=== PATIENT | male | born 1965 | race Caucasian/White ===

== ENCOUNTER → 2018-07-03 13:26 | Outpatient (CLI) | payer SELFPAY ==
[2018-07-03 14:48] LABS: Add Manual Diff / Slide Review NO; Basophils Percent Auto 1.5 % (0-2); Eosinophils Percent Auto 8.8 % (2-4); Hematocrit 41.6 % (41-53); Lymphocytes Percent Auto 33.4 % (25-40); Mean Corpuscular HGB Conc 33.7 % (30-36); Mean Corpuscular Hemoglobin 30.4 PG (26-34); Mean Corpuscular Volume 90.2 fL (80-100); Monocytes Percent Auto 7.4 % (3-14); Neutrophils Absolute Auto 3300 /uL (3000-5900); Neutrophils Percent Auto 48.9 % (50-75); Platelet Count 382 X10^3/uL (150-400); Red Blood Cell Count 4.61 X10^6/uL (4.5-5.9); Red Cell Distribution Width 13.6 % (11.6-14.8); White Blood Cell Count 6.8 X10^3/uL (4.5-11.0)
[2018-07-03 15:21] LABS: Alanine Aminotransferase 38 IU/L (21-72); Albumin 4.6 g/dL (3.5-5.0); Albumin Globulin Ratio 1.6 (1.0-2.8); Alkaline Phosphatase 53 U/L (38-126); Aspartate Aminotransferase 25 IU/L (17-59); BUN Creatinine Ratio 16.7 (6-22); Bilirubin Total 0.6 mg/dL (0.2-1.3); Blood Urea Nitrogen 15 mg/dL (9-20); Calcium 9.1 mg/dL (8.4-10.2); Carbon Dioxide 32 mmol/L (22-32); Chloride 100 mmol/L (98-107); Cholesterol 250 mg/dL (140-199); Estimated Glomerular Filt Rate > 60.0 mL/min (>60); Globulin 2.9 g/dL (1.7-4.1); Glucose 87 mg/dL (70-100); HDL Cholesterol 50 mg/dL (40-60); HEMOLYSIS < 15 (0-50); LDL Cholesterol Calculated 160 mg/dL (<100); Potassium 4.4 mmol/L (3.4-5.1); Sodium 142 mmol/L (137-145); Total Protein 7.5 g/dL (6.3-8.2); Triglycerides 198 mg/dL (35-150)
[2018-07-03 15:49] LABS: Prostate Specific Antigen Scrn 0.779 ng/mL (0.1-4.0)
== END ==
PROVIDERS: PCP Family Medicine; Visit Provider Family Medicine
DX: F98.8 Other specified behavioral and emotional disorders with onset usually occurring in childhood and adolescence (principal); J44.9 Chronic obstructive pulmonary disease, unspecified; Z00.01 Encounter for general adult medical examination with abnormal findings
CPT/HCPCS: 36415; 80053; 80061; 84443; 85025; G0103

== ENCOUNTER → 2018-12-04 15:12 | Outpatient (CLI) | payer OTHER, MEDICAID, SELFPAY ==
--- NOTE | 2018-12-04 15:14 | DI.US.S_ITS ---
PROCEDURE: US SCROTUM INDICATIONS: HYDROCELE TECHNIQUE: Real-time scanning was performed of the scrotum and testicles, with image documentation. Color and pulse Doppler interrogation was performed of both testicles. COMPARISON: None. FINDINGS: Right: Testicle is normal in size at 5.6 x 4.4 x 2.6 cm, and homogenous in echotexture. Epididymis is normal in overall size and morphology. There is a large cystic mass with internal septation between the right epididymis and testes measuring 4.4 x 4.1 x 3.3 cm, which demonstrates internal echo, this correlates with the palpable abnormalities. On Doppler ultrasound, there is flow signal within the septation. No varicoceles. Overlying scrotal skin is normal in thickness. Left: Testicle is normal in size at 5.5 x 3.8 x 2.3 cm, and homogeneous in echotexture. There is a 1.7 x 0.7 x 1.3 cm cyst in the epididymal head. Epididymis is normal in overall size and morphology. No hydrocele or varicoceles. Overlying scrotal skin is normal in thickness. Doppler: Color and pulse Doppler demonstrate normal and symmetric arterial flow in both testicles. IMPRESSION: 1. A 4.4 x 4.1 x 2.3 cm complex cystic mass in the right scrotum between the epididymis and testes. Differential diagnosis includes sequelae of trauma (hematocele), infection (pyocele) or complex hydrocele. Recommend clinical question followup. 2. Normal testes bilaterally. 3. A small epididymal cyst or spermatocele in the head of the left epididymis. Dictated by: Kaylyn Davis M.D. on 12/04/2018 at 16:46 Approved by: Kaylyn Davis M.D. on 12/04/2018 at 17:16
== END ==
PROVIDERS: Family Provider Family Medicine; PCP Family Medicine; Visit Provider Urology
DX: N50.3 Cyst of epididymis (principal); N43.3 Hydrocele, unspecified
CPT/HCPCS: 76870

== ENCOUNTER 2019-06-22 10:30 | Outpatient (RCR) | payer OTHER, MEDICAID, SELFPAY ==
--- NOTE | 2019-05-25 11:00 | PT.OPPOC ---
Current Diagnoses Pain in right shoulder (05/25/19) Pain in left shoulder (05/25/19) Visit Care Team Role Provider Type Aleksandar Medina MD Attending Provider Physician Primary Care Provider Specialty: Family Practice Address: [address] [place] [address], [id number] Email: [email or web address] Plan Of Care PT-OP-T Assessment and Plan Start: 05/25/19 08:06 Freq: Status: Active Protocol: Document 05/25/19 10:27 [facility] (Rec: 05/25/19 13:40 [facility] [id number]) Physical Therapy Assessment Rehab Potential Rehabilitation Potential Good Evaluation Complexity Number of Personal Factors/Comorbidities 1-2 Number of Body Systems Impaired 3 Clinical Presentation at Evaluation Evolving Impairments Impairments Activity Tolerance,Pain, Posture,Strength Goals Four Impairment activity tolerance (Quickdash score 41) Short Term Goal (STG) Quickdash UE disability score decrease to no greater than 25 % STG Duration 4 wks Skilled Nursing Goal (LTG) Decrease Quickdash score to no greater than 15% Three Impairment strength Short Term Goal (STG) Instruct patient in HEP for shoulder strengthening and stabilization STG Duration 4 wks Skilled Nursing Goal (LTG) Patient to demonstrate at least 4+/5 strength throughout bilateral shoulders LTG Duration 8 wks Two Impairment posture Short Term Goal (STG) Instruct patient in neutral postural alignment and importance for optimal shoulder function STG Duration 2 wks Taker Down Goal (LTG) Patient to demonstrate improvement in postural alignment at rest and with functional activities LTG Duration 8 wks One Impairment pain jb shoulders right (6/10 ) greater than left (3/10) Skilled Nursing Goal (LTG) Decrease pain to no greater than 2/10 jb LTG Duration 8 wks Physical Therapy Plan Frequency and Duration Frequency of Treatment 2x/Week Duration of Treatment 8 wks Plan of Care Start Date 05/25/19 Plan of Care End Date 07/24/19 Therapeutic Interventions Therapeutic Interventions Aquatic Therapy,Home Exercise Program,Joint Mobilizations, Manual Therapy,Neuromuscular Re-education,Patient/Caregiver Education,Self-Care/Home Management,Soft Tissue Mobilization,Taping, Therapeutic Activities, Therapeutic Exercises Modalities Cold Pack/Ice Massage,Electric Stimulation,Hot Packs, Iontophoresis,Ultrasound Next Visit Focus/Plan Next Note Type Treatment Note Next Visit Plan Review HEP, postural principles, progression of exercise program for shoulder strengthening and stabilization. Modalities and manual therapy as indicated. Plan of Care Dates Plan of Care Start Date 05/25/19 Plan of Care End Date 07/24/19 Please Sign and Return: I have reviewed this Plan of Care and certify that the skilled therapy services above are required to meet the patient?s needs. Physician Signature Date Printed Name and Credentials Clinical Instructor Signature Printed Name and Credentials
--- NOTE | 2019-05-25 11:00 | PT.OIE ---
Current Diagnoses Pain in right shoulder (05/25/19) Pain in left shoulder (05/25/19) Past Medical History (Last Updated 08/11/18 @ 11:30 by Yaima Bragg) Abnormal CXR (Chronic) ADHD (Chronic) Asthma (Chronic) Chronic back pain (Chronic) COPD (chronic obstructive pulmonary disease) (Chronic) Hemorrhoid (Chronic) Kidney stones (Resolved) Shoulder pain (Chronic) Past Surgical History (Last Updated 08/11/18 @ 11:30 by Yaima Bragg) Anesthesia (Resolved) History of lithotripsy (~2013) Visit Care Team Role Provider Type Aleksandar Medina MD Attending Provider Physician Primary Care Provider Specialty: [facility] Address: [address] [place] [address] Email: [email or web address] Physical Therapy Initial Evaluation PT-OP-A Visit Information Start: 05/25/19 08:06 Freq: Status: Active Protocol: Document 05/25/19 10:27 [facility] (Rec: 05/25/19 10:55 [facility] [id number]) Out-Patient Physical Therapy Visit Information Visit Information Visit Type Initial Evaluation Visit Start Time 10:30 Visit Stop Time 11:25 Total Visit Minutes 55 Visit Number 1 Number of CYBER INSTRUCTOR Visits 0 PT-OP-B Current Condition Start: 05/25/19 08:06 Freq: Status: Active Protocol: Document 05/25/19 10:27 [facility]AK (Rec: 05/25/19 10:55 [facility] [id number]) Current Condition History of Current Condition Onset Date 2 years Current Complaints bilateral shoulder pain History of Current Condition No known accident or trauma. Pain reduced to managable after PT 1yr ago. Shortly after states he doesn't know what he did but pain got worse again. Left shoulder only feels with certain movements, unable to much at all with right UE. Worst movements lifting overhead, out to side. Doing standing ROM ex as previously instructed, not doing band or prone exercises. Takes walks for exercise. Prior Treatments and Tests x-ray: inflammation and arthritis. Treatment Goals Patient/Caregiver Goals Minimize pain, able to resume all usual activities. Prior Functional Status Baseline Function- ADL's Independent Baseline Function- Mobility Independent Baseline Function- Recreation/Hobbies No limitations Current Functional Impairments (Reported) Functional Limitations- ADL's painful Functional Limitations- Recreation/ painful Hobbies PT-OP-C Subjective Start: 05/25/19 08:06 Freq: Status: Active Protocol: Document 05/25/19 10:27 [facility] (Rec: 05/25/19 13:40 [facility] [id number]) Patient Questionnaires Quick Dash- Upper Extremity Quick Dash UE Score 40 Quick Dash UE Impairment 40 to 59% Impaired (Score 40- 59) OP-PT Pain Assessment Pain Assessment Grid Paper Pain Assessment Grid Completed Yes Location Right Shoulder Intensity 6 Description Shooting,With Movement Pain Aggravating Factors Position,ADL's,Activity, Exercise Pain Alleviating Factors Inactivity,Rest Left Shoulder Intensity 3 Description Aching,With Movement Pain Aggravating Factors Changing Position,Lifting Pain Alleviating Factors Inactivity,Rest Home Pain Medication Use Pain Medications Used No PT-OP-E Functional Tests Start: 05/25/19 08:06 Freq: Status: Active Protocol: Document 05/25/19 10:27 [facility] (Rec: 05/25/19 13:40 [facility] [id number]) Functional Tests Apley's Scratch Test Action 1- Left posterior shoulder Action 1- Right anterior shoulder Action 2- Left T2 Action 2- Right lateral neck Action 3- Left T10 Action 3- Right L4 PT-OP-J Posture/Palpation/Skin Start: 05/25/19 08:06 Freq: Status: Active Protocol: Document 05/25/19 10:27 [facility] (Rec: 05/25/19 13:40 [facility] [id number]) Posture Evaluation Position Sitting Head/C-Spine Posture Forward Head T-Spine Posture Increased Kyphosis L-Spine Posture Increased Lordosis Scapula Posture (L) Protracted,(R) Protracted, (R) Retracted Arm Posture (R) Internally Rotated Palpation Assessment Location RC insertion Palpation Location right and left Palpation Findings Tenderness PT-OP-K Range of Motion Start: 05/25/19 08:06 Freq: Status: Active Protocol: Document 05/25/19 10:27 [facility] (Rec: 05/25/19 10:55 [facility] [id number]) Cervical Spine Range of Motion Cervical Spine Active Testing Position Sitting Comments WNL Shoulder Goniometric Range of Motion Shoulder Left Flexion 175 Extension 35 Abduction 175 External Rotation at 45 degrees 90 Abduction Internal Rotation Behind Back (text) T10 Right Testing Position Supine Flexion 175 Extension 20 Abduction 170 External Rotation at 45 degrees 80 Abduction Internal Rotation Behind Back (text) L3 Shoulder ROM Limitations Shoulder ROM Limitations Muscle Weakness,Pain PT-OP-L Special Tests Start: 05/25/19 08:06 Freq: Status: Active Protocol: Document 05/25/19 10:27 [facility] (Rec: 05/25/19 13:40 [facility] [id number]) Special Tests Shoulder Special Tests Belly Press Test Results positive pain right, neg left Galarza Amandeep Impingement Test Results positive right, neg left Drop Arm Rotator Cuff Test Results negative jb PT-OP-M Strength Start: 05/25/19 08:06 Freq: Status: Active Protocol: Document 05/25/19 10:27 [facility] (Rec: 05/25/19 13:40 [facility] [id number]) Shoulder Strength Shoulder Manual Muscle Testing Right Flexion 4- Good- Extension 4- Good- Abduction (C5) 4- Good- External Rotation 4- Good- Internal Rotation 4 Good Left Flexion 4+ Good+ Extension 4+ Good+ Abduction (C5) 4+ Good+ Adduction 4+ Good+ Internal Rotation 4+ Good+ Elbow/Forearm Strength Elbow and Forearm Manual Muscle Testing jb Flexion (C6) 5 Normal Extension (C7) 5 Normal PT-OP-Q Treatments Start: 05/25/19 08:06 Freq: Status: Active Protocol: Document 05/25/19 10:27 [facility] (Rec: 05/25/19 13:40 [facility] [id number]) Self-Care/Home Management Treatment Education Patient Education Home Exercise Program,Posture Other Education issued written HEP including wall posture, row and shoulder ext with L1 TB, doorway pec stretch Activities Self-Care/Home Management Activities heat in am, ice after activity PT-OP-R Modalities Start: 05/25/19 08:06 Freq: Status: Active Protocol: Document 05/25/19 10:27 [facility] (Rec: 05/25/19 13:40 [facility] [id number]) Hot Pack/Cold Pack Treatment Cold Pack Location jb shoulders Patient Position Hooklying Treatment Duration (minutes) 10 Patient Tolerance Good PT-OP-T Assessment and Plan Start: 05/25/19 08:06 Freq: Status: Active Protocol: Document 05/25/19 10:27 [facility] (Rec: 05/25/19 13:40 [facility] [id number]) Physical Therapy Assessment Rehab Potential Rehabilitation Potential Good Evaluation Complexity Number of Personal Factors/Comorbidities 1-2 Number of Body Systems Impaired 3 Clinical Presentation at Evaluation Evolving Impairments Impairments Activity Tolerance,Pain, Posture,Strength Goals Four Impairment activity tolerance (Quickdash score 41) Short Term Goal (STG) Quickdash UE disability score decrease to no greater than 25 % STG Duration 4 wks Alf Goal (LTG) Decrease Quickdash score to no greater than 15% Three Impairment strength Short Term Goal (STG) Instruct patient in HEP for shoulder strengthening and stabilization STG Duration 4 wks Alf Goal (LTG) Patient to demonstrate at least 4+/5 strength throughout bilateral shoulders LTG Duration 8 wks Two Impairment posture Short Term Goal (STG) Instruct patient in neutral postural alignment and importance for optimal shoulder function STG Duration 2 wks Alf Goal (LTG) Patient to demonstrate improvement in postural alignment at rest and with functional activities LTG Duration 8 wks One Impairment pain jb shoulders right (6/10 ) greater than left (3/10) Alf Goal (LTG) Decrease pain to no greater than 2/10 jb LTG Duration 8 wks Physical Therapy Plan Frequency and Duration Frequency of Treatment 2x/Week Duration of Treatment 8 wks Plan of Care Start Date 05/25/19 Plan of Care End Date 07/24/19 Therapeutic Interventions Therapeutic Interventions Aquatic Therapy,Home Exercise Program,Joint Mobilizations, Manual Therapy,Neuromuscular Re-education,Patient/Caregiver Education,Self-Care/Home Management,Soft Tissue Mobilization,Taping, Therapeutic Activities, Therapeutic Exercises Modalities Cold Pack/Ice Massage,Electric Stimulation,Hot Packs, Iontophoresis,Ultrasound Next Visit Focus/Plan Next Note Type Treatment Note Next Visit Plan Review HEP, postural principles, progression of exercise program for shoulder strengthening and stabilization. Modalities and manual therapy as indicated.
--- NOTE | 2019-05-27 08:16 | PT.OPPOC ---
Current Diagnoses Pain in right shoulder (05/25/19) Pain in left shoulder (05/25/19) Visit Care Team Role Provider Type Aleksandar Medina MD Attending Provider Physician Primary Care Provider Specialty: Family Practice Address: [address] [place] [address], [id number] Email: [email or web address] Plan Of Care PT-OP-T Assessment and Plan Start: 05/25/19 08:06 Freq: Status: Active Protocol: Document 05/25/19 10:27 [facility] (Rec: 05/25/19 13:40 [facility] [id number]) Physical Therapy Assessment Rehab Potential Rehabilitation Potential Good Evaluation Complexity Number of Personal Factors/Comorbidities 1-2 Number of Body Systems Impaired 3 Clinical Presentation at Evaluation Evolving Impairments Impairments Activity Tolerance,Pain, Posture,Strength Goals Four Impairment activity tolerance (Quickdash score 41) Short Term Goal (STG) Quickdash UE disability score decrease to no greater than 25 % STG Duration 4 wks Nursing Home Goal (LTG) Decrease Quickdash score to no greater than 15% Three Impairment strength Short Term Goal (STG) Instruct patient in HEP for shoulder strengthening and stabilization STG Duration 4 wks Nursing Home Goal (LTG) Patient to demonstrate at least 4+/5 strength throughout bilateral shoulders LTG Duration 8 wks Two Impairment posture Short Term Goal (STG) Instruct patient in neutral postural alignment and importance for optimal shoulder function STG Duration 2 wks Instrumental Music Teacher Goal (LTG) Patient to demonstrate improvement in postural alignment at rest and with functional activities LTG Duration 8 wks One Impairment pain jb shoulders right (6/10 ) greater than left (3/10) Nursing Home Goal (LTG) Decrease pain to no greater than 2/10 jb LTG Duration 8 wks Physical Therapy Plan Frequency and Duration Frequency of Treatment 2x/Week Duration of Treatment 8 wks Plan of Care Start Date 05/25/19 Plan of Care End Date 07/24/19 Therapeutic Interventions Therapeutic Interventions Aquatic Therapy,Home Exercise Program,Joint Mobilizations, Manual Therapy,Neuromuscular Re-education,Patient/Caregiver Education,Self-Care/Home Management,Soft Tissue Mobilization,Taping, Therapeutic Activities, Therapeutic Exercises Modalities Cold Pack/Ice Massage,Electric Stimulation,Hot Packs, Iontophoresis,Ultrasound Next Visit Focus/Plan Next Note Type Treatment Note Next Visit Plan Review HEP, postural principles, progression of exercise program for shoulder strengthening and stabilization. Modalities and manual therapy as indicated. Plan of Care Dates Plan of Care Start Date 05/25/19 Plan of Care End Date 07/24/19 Please Sign and Return: I have reviewed this Plan of Care and certify that the skilled therapy services above are required to meet the patient?s needs. Physician Signature Date Printed Name and Credentials Clinical Instructor Signature Printed Name and Credentials
--- NOTE | 2019-05-27 13:31 | PT.OTN ---
Current Diagnoses Pain in right shoulder (05/27/19) Pain in left shoulder (05/27/19) Physical Therapy Treatment Note PT-OP-A Visit Information Start: 05/25/19 08:06 Freq: Status: Active Protocol: Document 05/27/19 10:34 [facility] (Rec: 05/27/19 11:16 [facility] [id number]) Out-Patient Physical Therapy Visit Information Visit Information Visit Type Treatment Note Visit Start Time 10:35 Visit Stop Time 10:36 Total Visit Minutes 56 Visit Number 2 Number of [place] FLORIST Visits 0 PT-OP-B Current Condition Start: 05/25/19 08:06 Freq: Status: Active Protocol: Document 05/25/19 10:27 [facility] (Rec: 05/25/19 10:55 [facility] [id number]) Current Condition History of Current Condition Onset Date 2 years Current Complaints bilateral shoulder pain History of Current Condition No known accident or trauma. Pain reduced to managable after PT 1yr ago. Shortly after states he doesn't know what he did but pain got worse again. Left shoulder only feels with certain movements, unable to much at all with right UE. Worst movements lifting overhead, out to side. Doing standing ROM ex as previously instructed, not doing band or prone exercises. Takes walks for exercise. Prior Treatments and Tests x-ray: inflammation and arthritis. Treatment Goals Patient/Caregiver Goals Minimize pain, able to resume all usual activities. Prior Functional Status Baseline Function- ADL's Independent Baseline Function- Mobility Independent Baseline Function- Recreation/Hobbies No limitations Current Functional Impairments (Reported) Functional Limitations- ADL's painful Functional Limitations- Recreation/ painful Hobbies PT-OP-C Subjective Start: 05/25/19 08:06 Freq: Status: Active Protocol: Document 05/25/19 10:27 [facility] (Rec: 05/25/19 13:40 [facility] [id number]) Patient Questionnaires Quick Dash- Upper Extremity Quick Dash UE Score 40 Quick Dash UE Impairment 40 to 59% Impaired (Score 40- 59) OP-PT Pain Assessment Pain Assessment Grid Paper Pain Assessment Grid Completed Yes Location Right Shoulder Intensity 6 Description Shooting,With Movement Pain Aggravating Factors Position,ADL's,Activity, Exercise Pain Alleviating Factors Inactivity,Rest Left Shoulder Intensity 3 Description Aching,With Movement Pain Aggravating Factors Changing Position,Lifting Pain Alleviating Factors Inactivity,Rest Home Pain Medication Use Pain Medications Used No PT-OP-E Functional Tests Start: 05/25/19 08:06 Freq: Status: Active Protocol: Document 05/25/19 10:27 [facility] (Rec: 05/25/19 13:40 [facility] [id number]) Functional Tests Apley's Scratch Test Action 1- Left posterior shoulder Action 1- Right anterior shoulder Action 2- Left T2 Action 2- Right lateral neck Action 3- Left T10 Action 3- Right L4 PT-OP-J Posture/Palpation/Skin Start: 05/25/19 08:06 Freq: Status: Active Protocol: Document 05/25/19 10:27 [facility] (Rec: 05/25/19 13:40 [facility] [id number]) Posture Evaluation Position Sitting Head/C-Spine Posture Forward Head T-Spine Posture Increased Kyphosis L-Spine Posture Increased Lordosis Scapula Posture (L) Protracted,(R) Protracted, (R) Retracted Arm Posture (R) Internally Rotated Palpation Assessment Location RC insertion Palpation Location right and left Palpation Findings Tenderness PT-OP-K Range of Motion Start: 05/25/19 08:06 Freq: Status: Active Protocol: Document 05/25/19 10:27 [facility] (Rec: 05/25/19 10:55 [facility] [id number]) Cervical Spine Range of Motion Cervical Spine Active Testing Position Sitting Comments WNL Shoulder Goniometric Range of Motion Shoulder Left Flexion 175 Extension 35 Abduction 175 External Rotation at 45 degrees 90 Abduction Internal Rotation Behind Back (text) T10 Right Testing Position Supine Flexion 175 Extension 20 Abduction 170 External Rotation at 45 degrees 80 Abduction Internal Rotation Behind Back (text) L3 Shoulder ROM Limitations Shoulder ROM Limitations Muscle Weakness,Pain PT-OP-L Special Tests Start: 05/25/19 08:06 Freq: Status: Active Protocol: Document 05/25/19 10:27 [facility] (Rec: 05/25/19 13:40 [facility] [id number]) Special Tests Shoulder Special Tests Belly Press Test Results positive pain right, neg left Galarza Amandeep Impingement Test Results positive right, neg left Drop Arm Rotator Cuff Test Results negative jb PT-OP-M Strength Start: 05/25/19 08:06 Freq: Status: Active Protocol: Document 05/25/19 10:27 [facility] (Rec: 05/25/19 13:40 [facility] [id number]) Shoulder Strength Shoulder Manual Muscle Testing Right Flexion 4- Good- Extension 4- Good- Abduction (C5) 4- Good- External Rotation 4- Good- Internal Rotation 4 Good Left Flexion 4+ Good+ Extension 4+ Good+ Abduction (C5) 4+ Good+ Adduction 4+ Good+ Internal Rotation 4+ Good+ Elbow/Forearm Strength Elbow and Forearm Manual Muscle Testing jb Flexion (C6) 5 Normal Extension (C7) 5 Normal PT-OP-Q Treatments Start: 05/25/19 08:06 Freq: Status: Active Protocol: Document 05/27/19 10:34 [facility] (Rec: 05/27/19 11:16 [facility] [id number]) Cardio Equipment Recumbent Stepper (Sci-Fit) Duration (Minutes) 5 Resistance 1 Seat Position 13 Therapeutic Exercises Supine Exercises serratus punch Comments next session horizontal abduction Reps/Minutes 5x Comments endrange stretch x 30 after last repetition shoulder flex Equipment Used wand Reps/Minutes 10x Sidelying Exercises shoulder abduction Reps/Minutes 5x reach and roll Reps/Minutes 5x ea Sitting Exercises pulleys Sitting Exercise Name flex Reps/Minutes 10x Standing Exercises shoulder ER Resistance L2 TB Reps/Minutes 10x shoulder ext Resistance L2 TB Reps/Minutes 10x row Resistance L2 TB Reps/Minutes 10x shoulder extension Equipment Used wand Reps/Minutes 5x doorway stretch Reps/Minutes 2x30 postural isometric Reps/Minutes 5x5 Manual Therapy Treatment Soft Tissue Mobilization jb UT, periscapular region Mobilization Type Myofascial Release,Strumming, Sustained Pressure Intensity/Depth Moderate Body Position Hooklying Self-Care/Home Management Treatment Education Patient Education Home Exercise Program,Posture Other Education added sidelying reach and roll , sidelying shoulder abd PT-OP-R Modalities Start: 05/25/19 08:06 Freq: Status: Active Protocol: Document 05/27/19 10:34 [facility] (Rec: 05/27/19 11:16 [facility] [id number]) Hot Pack/Cold Pack Treatment Cold Pack Location jb shoulders Patient Position Hooklying Treatment Duration (minutes) 10 Patient Tolerance Good PT-OP-T Assessment and Plan Start: 05/25/19 08:06 Freq: Status: Active Protocol: Document 05/27/19 10:34 [facility] (Rec: 05/27/19 11:16 [facility] [id number]) Physical Therapy Assessment Rehab Potential Rehabilitation Potential Good Evaluation Complexity Number of Personal Factors/Comorbidities 1-2 Number of Body Systems Impaired 3 Clinical Presentation at Evaluation Evolving Impairments Impairments Activity Tolerance,Pain, Posture,Strength Goals Four Impairment activity tolerance (Quickdash score 41) Short Term Goal (STG) Quickdash UE disability score decrease to no greater than 25 % STG Duration 4 wks Jigman Goal (LTG) Decrease Quickdash score to no greater than 15% Three Impairment strength Short Term Goal (STG) Instruct patient in HEP for shoulder strengthening and stabilization STG Duration 4 wks Longterm Goal (LTG) Patient to demonstrate at least 4+/5 strength throughout bilateral shoulders LTG Duration 8 wks Two Impairment posture Short Term Goal (STG) Instruct patient in neutral postural alignment and importance for optimal shoulder function STG Duration 2 wks Longterm Goal (LTG) Patient to demonstrate improvement in postural alignment at rest and with functional activities LTG Duration 8 wks One Impairment pain jb shoulders right (6/10 ) greater than left (3/10) Jigman Goal (LTG) Decrease pain to no greater than 2/10 jb LTG Duration 8 wks Physical Therapy Plan Frequency and Duration Frequency of Treatment 2x/Week Duration of Treatment 8 wks Plan of Care Start Date 05/25/19 Plan of Care End Date 07/24/19 Therapeutic Interventions Therapeutic Interventions Aquatic Therapy,Home Exercise Program,Joint Mobilizations, Manual Therapy,Neuromuscular Re-education,Patient/Caregiver Education,Self-Care/Home Management,Soft Tissue Mobilization,Taping, Therapeutic Activities, Therapeutic Exercises Modalities Cold Pack/Ice Massage,Electric Stimulation,Hot Packs, Iontophoresis,Ultrasound Next Visit Focus/Plan Next Note Type Treatment Note Next Visit Plan Good tolerance for PT today with cues to exercise in pain- free ROM. Moderate cues for postural alignment with performance of therapeutic exercises.
--- NOTE | 2019-06-01 11:26 | PT.OTN ---
Current Diagnoses Pain in right shoulder (06/01/19) Pain in left shoulder (06/01/19) Physical Therapy Treatment Note PT-OP-A Visit Information Start: 05/25/19 08:06 Freq: Status: Active Protocol: Document 06/01/19 10:29 [facility] (Rec: 06/01/19 11:16 [facility] [id number]) Out-Patient Physical Therapy Visit Information Visit Information Visit Type Treatment Note Visit Start Time 10:32 Visit Stop Time 11:29 Total Visit Minutes 57 Visit Number 3 Number of [place] DRIER Visits 0 PT-OP-B Current Condition Start: 05/25/19 08:06 Freq: Status: Active Protocol: Document 05/25/19 10:27 [facility] (Rec: 05/25/19 10:55 [facility] [id number]) Current Condition History of Current Condition Onset Date 2 years Current Complaints bilateral shoulder pain History of Current Condition No known accident or trauma. Pain reduced to managable after PT 1yr ago. Shortly after states he doesn't know what he did but pain got worse again. Left shoulder only feels with certain movements, unable to much at all with right UE. Worst movements lifting overhead, out to side. Doing standing ROM ex as previously instructed, not doing band or prone exercises. Takes walks for exercise. Prior Treatments and Tests x-ray: inflammation and arthritis. Treatment Goals Patient/Caregiver Goals Minimize pain, able to resume all usual activities. Prior Functional Status Baseline Function- ADL's Independent Baseline Function- Mobility Independent Baseline Function- Recreation/Hobbies No limitations Current Functional Impairments (Reported) Functional Limitations- ADL's painful Functional Limitations- Recreation/ painful Hobbies PT-OP-C Subjective Start: 05/25/19 08:06 Freq: Status: Active Protocol: Document 06/01/19 10:29 [facility] (Rec: 06/01/19 11:16 [facility] [id number]) OP-PT Subjective Patient Comments Patient Comments C6-7 flaring recently, not sure if related to PT. PT-OP-E Functional Tests Start: 05/25/19 08:06 Freq: Status: Active Protocol: Document 05/25/19 10:27 [facility] (Rec: 05/25/19 13:40 [facility] [id number]) Functional Tests Seraey's Scratch Test Action 1- Left posterior shoulder Action 1- Right anterior shoulder Action 2- Left T2 Action 2- Right lateral neck Action 3- Left T10 Action 3- Right L4 PT-OP-J Posture/Palpation/Skin Start: 05/25/19 08:06 Freq: Status: Active Protocol: Document 05/25/19 10:27 [facility] (Rec: 05/25/19 13:40 [facility] [id number]) Posture Evaluation Position Sitting Head/C-Spine Posture Forward Head T-Spine Posture Increased Kyphosis L-Spine Posture Increased Lordosis Scapula Posture (L) Protracted,(R) Protracted, (R) Retracted Arm Posture (R) Internally Rotated Palpation Assessment Location RC insertion Palpation Location right and left Palpation Findings Tenderness PT-OP-K Range of Motion Start: 05/25/19 08:06 Freq: Status: Active Protocol: Document 05/25/19 10:27 [facility] (Rec: 05/25/19 10:55 [facility] [id number]) Cervical Spine Range of Motion Cervical Spine Active Testing Position Sitting Comments WNL Shoulder Goniometric Range of Motion Shoulder Left Flexion 175 Extension 35 Abduction 175 External Rotation at 45 degrees 90 Abduction Internal Rotation Behind Back (text) T10 Right Testing Position Supine Flexion 175 Extension 20 Abduction 170 External Rotation at 45 degrees 80 Abduction Internal Rotation Behind Back (text) L3 Shoulder ROM Limitations Shoulder ROM Limitations Muscle Weakness,Pain PT-OP-L Special Tests Start: 05/25/19 08:06 Freq: Status: Active Protocol: Document 05/25/19 10:27 [facility] (Rec: 05/25/19 13:40 [facility] [id number]) Special Tests Shoulder Special Tests Belly Press Test Results positive pain right, neg left Galarza Amandeep Impingement Test Results positive right, neg left Drop Arm Rotator Cuff Test Results negative jb PT-OP-M Strength Start: 05/25/19 08:06 Freq: Status: Active Protocol: Document 05/25/19 10:27 [facility] (Rec: 05/25/19 13:40 [facility] [id number]) Shoulder Strength Shoulder Manual Muscle Testing Right Flexion 4- Good- Extension 4- Good- Abduction (C5) 4- Good- External Rotation 4- Good- Internal Rotation 4 Good Left Flexion 4+ Good+ Extension 4+ Good+ Abduction (C5) 4+ Good+ Adduction 4+ Good+ Internal Rotation 4+ Good+ Elbow/Forearm Strength Elbow and Forearm Manual Muscle Testing jb Flexion (C6) 5 Normal Extension (C7) 5 Normal PT-OP-Q Treatments Start: 05/25/19 08:06 Freq: Status: Active Protocol: Document 06/01/19 10:29 [facility] (Rec: 06/01/19 11:16 [facility] [id number]) Cardio Equipment Recumbent Stepper (Sci-Fit) Duration (Minutes) 4 Resistance 1 Seat Position 13 Other UE's and LE's 2 min, LE's only 2 min Therapeutic Exercises Supine Exercises serratus punch Reps/Minutes 10x horizontal abduction Resistance 1# Reps/Minutes 10x Comments endrange stretch x 30 after last repetition shoulder flex Resistance 1# Reps/Minutes 10x Comments from 90 to 180 Sidelying Exercises shoulder ER Resistance 1# Reps/Minutes 10x shoulder abduction Reps/Minutes 5x Sitting Exercises pulleys Sitting Exercise Name flex Reps/Minutes 10x Standing Exercises shoulder IR Resistance L1 TB Reps/Minutes 10x shoulder ER Resistance L1 TB Reps/Minutes 10x shoulder ext Resistance 1 Reps/Minutes 10x row Resistance L1 TB Reps/Minutes 10x shoulder extension Equipment Used wand Reps/Minutes 5x doorway stretch Reps/Minutes 2x30 postural isometric Reps/Minutes 5x5 Manual Therapy Treatment Soft Tissue Mobilization jb UT, periscapular region Mobilization Type Myofascial Release,Strumming, Sustained Pressure Intensity/Depth Moderate Body Position Hooklying Self-Care/Home Management Treatment Education Patient Education Home Exercise Program,Posture Other Education added sidelying reach and roll , sidelying shoulder abd PT-OP-R Modalities Start: 05/25/19 08:06 Freq: Status: Active Protocol: Document 06/01/19 10:29 [facility] (Rec: 06/01/19 11:16 [facility] [id number]) Hot Pack/Cold Pack Treatment Cold Pack Location jb shoulders Patient Position Hooklying Treatment Duration (minutes) 10 Patient Tolerance Good PT-OP-T Assessment and Plan Start: 05/25/19 08:06 Freq: Status: Active Protocol: Document 06/01/19 10:29 [facility] (Rec: 06/01/19 11:16 [facility] [id number]) Physical Therapy Assessment Goals Four Impairment activity tolerance (Quickdash score 41) Short Term Goal (STG) Quickdash UE disability score decrease to no greater than 25 % STG Duration 4 wks Staff Reporter Goal (LTG) Decrease Quickdash score to no greater than 15% Three Impairment strength Short Term Goal (STG) Instruct patient in HEP for shoulder strengthening and stabilization STG Duration 4 wks Staff Reporter Goal (LTG) Patient to demonstrate at least 4+/5 strength throughout bilateral shoulders LTG Duration 8 wks Two Impairment posture Short Term Goal (STG) Instruct patient in neutral postural alignment and importance for optimal shoulder function STG Duration 2 wks Shelter Goal (LTG) Patient to demonstrate improvement in postural alignment at rest and with functional activities LTG Duration 8 wks One Impairment pain jb shoulders right (6/10 ) greater than left (3/10) Shelter Goal (LTG) Decrease pain to no greater than 2/10 jb LTG Duration 8 wks Physical Therapy Plan Frequency and Duration Frequency of Treatment 2x/Week Duration of Treatment 8 wks Plan of Care Start Date 05/25/19 Plan of Care End Date 07/24/19 Therapeutic Interventions Therapeutic Interventions Aquatic Therapy,Home Exercise Program,Joint Mobilizations, Manual Therapy,Neuromuscular Re-education,Patient/Caregiver Education,Self-Care/Home Management,Soft Tissue Mobilization,Taping, Therapeutic Activities, Therapeutic Exercises Modalities Cold Pack/Ice Massage,Electric Stimulation,Hot Packs, Iontophoresis,Ultrasound
--- NOTE | 2019-06-03 17:03 | PT.OTN ---
Current Diagnoses Pain in right shoulder (06/03/19) Pain in left shoulder (06/03/19) Physical Therapy Treatment Note PT-OP-A Visit Information Start: 05/25/19 08:06 Freq: Status: Active Protocol: Document 06/03/19 15:17 [facility] (Rec: 06/03/19 16:13 [facility] [id number]) Out-Patient Physical Therapy Visit Information Visit Information Visit Type Treatment Note Visit Start Time 15:15 Visit Stop Time 16:10 Total Visit Minutes 57 Visit Number 4 Number of HOLISTIC HEALTH PRACTITIONER Visits 0 PT-OP-B Current Condition Start: 05/25/19 08:06 Freq: Status: Active Protocol: Document 05/25/19 10:27 [facility] (Rec: 05/25/19 10:55 [facility] [id number]) Current Condition History of Current Condition Onset Date 2 years Current Complaints bilateral shoulder pain History of Current Condition No known accident or trauma. Pain reduced to managable after PT 1yr ago. Shortly after states he doesn't know what he did but pain got worse again. Left shoulder only feels with certain movements, unable to much at all with right UE. Worst movements lifting overhead, out to side. Doing standing ROM ex as previously instructed, not doing band or prone exercises. Takes walks for exercise. Prior Treatments and Tests x-ray: inflammation and arthritis. Treatment Goals Patient/Caregiver Goals Minimize pain, able to resume all usual activities. Prior Functional Status Baseline Function- ADL's Independent Baseline Function- Mobility Independent Baseline Function- Recreation/Hobbies No limitations Current Functional Impairments (Reported) Functional Limitations- ADL's painful Functional Limitations- Recreation/ painful Hobbies PT-OP-C Subjective Start: 05/25/19 08:06 Freq: Status: Active Protocol: Document 06/03/19 15:17 [facility] (Rec: 06/03/19 16:13 [facility] [id number]) OP-PT Subjective Patient Comments Patient Comments Neck much better after last session, shoulders same PT-OP-E Functional Tests Start: 05/25/19 08:06 Freq: Status: Active Protocol: Document 05/25/19 10:27 [facility] (Rec: 05/25/19 13:40 [facility] [id number]) Functional Tests Apley's Scratch Test Action 1- Left posterior shoulder Action 1- Right anterior shoulder Action 2- Left T2 Action 2- Right lateral neck Action 3- Left T10 Action 3- Right L4 PT-OP-J Posture/Palpation/Skin Start: 05/25/19 08:06 Freq: Status: Active Protocol: Document 05/25/19 10:27 [facility] (Rec: 05/25/19 13:40 [facility] [id number]) Posture Evaluation Position Sitting Head/C-Spine Posture Forward Head T-Spine Posture Increased Kyphosis L-Spine Posture Increased Lordosis Scapula Posture (L) Protracted,(R) Protracted, (R) Retracted Arm Posture (R) Internally Rotated Palpation Assessment Location RC insertion Palpation Location right and left Palpation Findings Tenderness PT-OP-K Range of Motion Start: 05/25/19 08:06 Freq: Status: Active Protocol: Document 05/25/19 10:27 [facility] (Rec: 05/25/19 10:55 [facility] [id number]) Cervical Spine Range of Motion Cervical Spine Active Testing Position Sitting Comments WNL Shoulder Goniometric Range of Motion Shoulder Left Flexion 175 Extension 35 Abduction 175 External Rotation at 45 degrees 90 Abduction Internal Rotation Behind Back (text) T10 Right Testing Position Supine Flexion 175 Extension 20 Abduction 170 External Rotation at 45 degrees 80 Abduction Internal Rotation Behind Back (text) L3 Shoulder ROM Limitations Shoulder ROM Limitations Muscle Weakness,Pain PT-OP-L Special Tests Start: 05/25/19 08:06 Freq: Status: Active Protocol: Document 05/25/19 10:27 [facility] (Rec: 05/25/19 13:40 [facility] [id number]) Special Tests Shoulder Special Tests Belly Press Test Results positive pain right, neg left Galarza Amandeep Impingement Test Results positive right, neg left Drop Arm Rotator Cuff Test Results negative jb PT-OP-M Strength Start: 05/25/19 08:06 Freq: Status: Active Protocol: Document 05/25/19 10:27 [facility] (Rec: 05/25/19 13:40 [facility] [id number]) Shoulder Strength Shoulder Manual Muscle Testing Right Flexion 4- Good- Extension 4- Good- Abduction (C5) 4- Good- External Rotation 4- Good- Internal Rotation 4 Good Left Flexion 4+ Good+ Extension 4+ Good+ Abduction (C5) 4+ Good+ Adduction 4+ Good+ Internal Rotation 4+ Good+ Elbow/Forearm Strength Elbow and Forearm Manual Muscle Testing jb Flexion (C6) 5 Normal Extension (C7) 5 Normal PT-OP-Q Treatments Start: 05/25/19 08:06 Freq: Status: Active Protocol: Document 06/03/19 15:17 [facility] (Rec: 06/03/19 16:13 [facility] [id number]) Cardio Equipment Recumbent Stepper (Sci-Fit) Duration (Minutes) 5 Resistance 1 Seat Position 13 Other UE's and LE's 2 min, LE's only 2 min Therapeutic Exercises Sitting Exercises lat pull Resistance 25# Reps/Minutes 10x pulleys Sitting Exercise Name flex Reps/Minutes 10x Standing Exercises wall push-up Reps/Minutes 10x postural isometric Reps/Minutes 5x5 Manual Therapy Treatment Soft Tissue Mobilization jb UT, periscapular region Mobilization Type Myofascial Release,Strumming, Sustained Pressure Intensity/Depth Moderate Body Position Hooklying Taping right shoulder Body Location right shoulder Treatment Focus support, pain management Type of Tape kinesiotape Skin Inspection intact Comments 3 Y strips PT-OP-R Modalities Start: 05/25/19 08:06 Freq: Status: Active Protocol: Document 06/03/19 15:17 [facility] (Rec: 06/03/19 16:13 [facility] [id number]) Hot Pack/Cold Pack Treatment Cold Pack Location jb shoulders Patient Position Hooklying Treatment Duration (minutes) 10 Patient Tolerance Good Ultrasound Therapy Treatment Right Shoulder Treatment Duration (minutes) 8 Patient Position Sitting Coupling Medium Ultrasound Gel Mode Setting Pulsed Duty Cycle 50% Intensity Setting (w/cm2) 1.3 PT-OP-T Assessment and Plan Start: 05/25/19 08:06 Freq: Status: Active Protocol: Document 06/03/19 15:17 [facility] (Rec: 06/03/19 16:13 [facility] [id number]) Physical Therapy Assessment Goals Four Impairment activity tolerance (Quickdash score 41) Short Term Goal (STG) Quickdash UE disability score decrease to no greater than 25 % STG Duration 4 wks Snf Goal (LTG) Decrease Quickdash score to no greater than 15% Three Impairment strength Short Term Goal (STG) Instruct patient in HEP for shoulder strengthening and stabilization STG Duration 4 wks Laboratory [facility] Goal (LTG) Patient to demonstrate at least 4+/5 strength throughout bilateral shoulders LTG Duration 8 wks Two Impairment posture Short Term Goal (STG) Instruct patient in neutral postural alignment and importance for optimal shoulder function STG Duration 2 wks [facility] Goal (LTG) Patient to demonstrate improvement in postural alignment at rest and with functional activities LTG Duration 8 wks One Impairment pain jb shoulders right (6/10 ) greater than left (3/10) Snf Goal (LTG) Decrease pain to no greater than 2/10 jb LTG Duration 8 wks Physical Therapy Plan Frequency and Duration Frequency of Treatment 2x/Week Duration of Treatment 8 wks Plan of Care Start Date 05/25/19 Plan of Care End Date 07/24/19 Therapeutic Interventions Therapeutic Interventions Aquatic Therapy,Home Exercise Program,Joint Mobilizations, Manual Therapy,Neuromuscular Re-education,Patient/Caregiver Education,Self-Care/Home Management,Soft Tissue Mobilization,Taping, Therapeutic Activities, Therapeutic Exercises Modalities Cold Pack/Ice Massage,Electric Stimulation,Hot Packs, Iontophoresis,Ultrasound Next Visit Focus/Plan Next Visit Plan Continue PT per POC. ASsess response to kinesiotape
--- NOTE | 2019-06-08 16:05 | PT.OTN ---
Current Diagnoses Pain in right shoulder (06/08/19) Pain in left shoulder (06/08/19) Physical Therapy Treatment Note PT-OP-A Visit Information Start: 05/25/19 08:06 Freq: Status: Active Protocol: Document 06/08/19 10:31 [facility] (Rec: 06/08/19 11:17 [facility] [id number]) Out-Patient Physical Therapy Visit Information Visit Information Visit Type Treatment Note Visit Start Time 10:30 Visit Stop Time 11:20 Total Visit Minutes 50 Visit Number 5 Number of IT DATA ARCHITECT Visits 0 PT-OP-B Current Condition Start: 05/25/19 08:06 Freq: Status: Active Protocol: Document 05/25/19 10:27 [facility] (Rec: 05/25/19 10:55 [facility] [id number]) Current Condition History of Current Condition Onset Date 2 years Current Complaints bilateral shoulder pain History of Current Condition No known accident or trauma. Pain reduced to managable after PT 1yr ago. Shortly after states he doesn't know what he did but pain got worse again. Left shoulder only feels with certain movements, unable to much at all with right UE. Worst movements lifting overhead, out to side. Doing standing ROM ex as previously instructed, not doing band or prone exercises. Takes walks for exercise. Prior Treatments and Tests x-ray: inflammation and arthritis. Treatment Goals Patient/Caregiver Goals Minimize pain, able to resume all usual activities. Prior Functional Status Baseline Function- ADL's Independent Baseline Function- Mobility Independent Baseline Function- Recreation/Hobbies No limitations Current Functional Impairments (Reported) Functional Limitations- ADL's painful Functional Limitations- Recreation/ painful Hobbies PT-OP-C Subjective Start: 05/25/19 08:06 Freq: Status: Active Protocol: Document 06/08/19 10:31 [facility] (Rec: 06/08/19 11:17 [facility] [id number]) OP-PT Subjective Patient Comments Patient Comments Left shoulder better, no change in right. PT-OP-E Functional Tests Start: 05/25/19 08:06 Freq: Status: Active Protocol: Document 05/25/19 10:27 [facility] (Rec: 05/25/19 13:40 [facility] [id number]) Functional Tests Apley's Scratch Test Action 1- Left posterior shoulder Action 1- Right anterior shoulder Action 2- Left T2 Action 2- Right lateral neck Action 3- Left T10 Action 3- Right L4 PT-OP-J Posture/Palpation/Skin Start: 05/25/19 08:06 Freq: Status: Active Protocol: Document 05/25/19 10:27 [facility] (Rec: 05/25/19 13:40 [facility] [id number]) Posture Evaluation Position Sitting Head/C-Spine Posture Forward Head T-Spine Posture Increased Kyphosis L-Spine Posture Increased Lordosis Scapula Posture (L) Protracted,(R) Protracted, (R) Retracted Arm Posture (R) Internally Rotated Palpation Assessment Location RC insertion Palpation Location right and left Palpation Findings Tenderness PT-OP-K Range of Motion Start: 05/25/19 08:06 Freq: Status: Active Protocol: Document 05/25/19 10:27 [facility] (Rec: 05/25/19 10:55 [facility] [id number]) Cervical Spine Range of Motion Cervical Spine Active Testing Position Sitting Comments WNL Shoulder Goniometric Range of Motion Shoulder Left Flexion 175 Extension 35 Abduction 175 External Rotation at 45 degrees 90 Abduction Internal Rotation Behind Back (text) T10 Right Testing Position Supine Flexion 175 Extension 20 Abduction 170 External Rotation at 45 degrees 80 Abduction Internal Rotation Behind Back (text) L3 Shoulder ROM Limitations Shoulder ROM Limitations Muscle Weakness,Pain PT-OP-L Special Tests Start: 05/25/19 08:06 Freq: Status: Active Protocol: Document 05/25/19 10:27 [facility] (Rec: 05/25/19 13:40 [facility] [id number]) Special Tests Shoulder Special Tests Belly Press Test Results positive pain right, neg left Galarza Amandeep Impingement Test Results positive right, neg left Drop Arm Rotator Cuff Test Results negative jb PT-OP-M Strength Start: 05/25/19 08:06 Freq: Status: Active Protocol: Document 05/25/19 10:27 [facility] (Rec: 05/25/19 13:40 [facility] [id number]) Shoulder Strength Shoulder Manual Muscle Testing Right Flexion 4- Good- Extension 4- Good- Abduction (C5) 4- Good- External Rotation 4- Good- Internal Rotation 4 Good Left Flexion 4+ Good+ Extension 4+ Good+ Abduction (C5) 4+ Good+ Adduction 4+ Good+ Internal Rotation 4+ Good+ Elbow/Forearm Strength Elbow and Forearm Manual Muscle Testing jb Flexion (C6) 5 Normal Extension (C7) 5 Normal PT-OP-Q Treatments Start: 05/25/19 08:06 Freq: Status: Active Protocol: Document 06/08/19 10:31 [facility] (Rec: 06/08/19 11:17 [facility] [id number]) Cardio Equipment Recumbent Stepper (Sci-Fit) Other not done due to discomfort with UE's prev Therapeutic Exercises Supine Exercises serratus punch Resistance 2# Reps/Minutes 10x horizontal abduction Resistance 0 Reps/Minutes 10x Comments endrange stretch x 30 after last repetition Standing Exercises postural isometric Reps/Minutes 5x5 Manual Therapy Treatment Soft Tissue Mobilization jb UT, periscapular region Mobilization Type Myofascial Release,Strumming, Sustained Pressure Intensity/Depth Moderate Body Position Hooklying Joint Mobilizations inferior glide Joint GH Grade III Body Position Supine long axis distraction Joint GH Grade III Body Position Supine posterior glide Joint GH Direction AP Grade III Body Position Supine Taping right shoulder Comments not helpful last session PT-OP-R Modalities Start: 05/25/19 08:06 Freq: Status: Active Protocol: Document 06/08/19 10:31 [facility] (Rec: 06/08/19 11:17 [facility] [id number]) Hot Pack/Cold Pack Treatment Cold Pack Location jb shoulders Patient Position Hooklying Treatment Duration (minutes) 10 Patient Tolerance Good Ultrasound Therapy Treatment Right Shoulder Treatment Duration (minutes) 8 Patient Position Sitting Coupling Medium Ultrasound Gel Mode Setting Pulsed Duty Cycle 50% Intensity Setting (w/cm2) 1.3 PT-OP-T Assessment and Plan Start: 05/25/19 08:06 Freq: Status: Active Protocol: Document 06/08/19 10:31 [facility] (Rec: 06/08/19 11:17 [facility] [id number]) Physical Therapy Assessment Goals Four Impairment activity tolerance (Quickdash score 41) Short Term Goal (STG) Quickdash UE disability score decrease to no greater than 25 % STG Duration 4 wks Supervisor [employer] Goal (LTG) Decrease Quickdash score to no greater than 15% Three Impairment strength Short Term Goal (STG) Instruct patient in HEP for shoulder strengthening and stabilization STG Duration 4 wks Retirement Goal (LTG) Patient to demonstrate at least 4+/5 strength throughout bilateral shoulders LTG Duration 8 wks Two Impairment posture Short Term Goal (STG) Instruct patient in neutral postural alignment and importance for optimal shoulder function STG Duration 2 wks Retirement Goal (LTG) Patient to demonstrate improvement in postural alignment at rest and with functional activities LTG Duration 8 wks One Impairment pain jb shoulders right (6/10 ) greater than left (3/10) Retirement Goal (LTG) Decrease pain to no greater than 2/10 jb LTG Duration 8 wks Assessment Summary Assessment Improvement in left shoulder pain. Reported increased symptoms with kinesiotape right shoulder so not done today. Increased manual treatment today including joint mobilizations today. Physical Therapy Plan Frequency and Duration Frequency of Treatment 2x/Week Duration of Treatment 8 wks Plan of Care Start Date 05/25/19 Plan of Care End Date 07/24/19 Therapeutic Interventions Therapeutic Interventions Aquatic Therapy,Home Exercise Program,Joint Mobilizations, Manual Therapy,Neuromuscular Re-education,Patient/Caregiver Education,Self-Care/Home Management,Soft Tissue Mobilization,Taping, Therapeutic Activities, Therapeutic Exercises Modalities Cold Pack/Ice Massage,Electric Stimulation,Hot Packs, Iontophoresis,Ultrasound Next Visit Focus/Plan Next Visit Plan Assess response to today's treatment. Consider iontophoresis right shoulder if no change.
--- NOTE | 2019-06-10 17:14 | PT.OTN ---
Current Diagnoses Pain in right shoulder (06/10/19) Pain in left shoulder (06/10/19) Physical Therapy Treatment Note PT-OP-A Visit Information Start: 05/25/19 08:06 Freq: Status: Active Protocol: Document 06/10/19 10:31 [facility] (Rec: 06/10/19 10:58 [facility] [id number]) Out-Patient Physical Therapy Visit Information Visit Information Visit Type Treatment Note Visit Start Time 10:30 Visit Stop Time 11:20 Total Visit Minutes 50 Visit Number 6 Number of HAM ROLLING MACHINE OPERATOR Visits 0 PT-OP-B Current Condition Start: 05/25/19 08:06 Freq: Status: Active Protocol: Document 05/25/19 10:27 [facility] (Rec: 05/25/19 10:55 [facility] [id number]) Current Condition History of Current Condition Onset Date 2 years Current Complaints bilateral shoulder pain History of Current Condition No known accident or trauma. Pain reduced to managable after PT 1yr ago. Shortly after states he doesn't know what he did but pain got worse again. Left shoulder only feels with certain movements, unable to much at all with right UE. Worst movements lifting overhead, out to side. Doing standing ROM ex as previously instructed, not doing band or prone exercises. Takes walks for exercise. Prior Treatments and Tests x-ray: inflammation and arthritis. Treatment Goals Patient/Caregiver Goals Minimize pain, able to resume all usual activities. Prior Functional Status Baseline Function- ADL's Independent Baseline Function- Mobility Independent Baseline Function- Recreation/Hobbies No limitations Current Functional Impairments (Reported) Functional Limitations- ADL's painful Functional Limitations- Recreation/ painful Hobbies PT-OP-C Subjective Start: 05/25/19 08:06 Freq: Status: Active Protocol: Document 06/08/19 10:31 [facility] (Rec: 06/08/19 11:17 [facility] [id number]) OP-PT Subjective Patient Comments Patient Comments Left shoulder better, no change in right. PT-OP-E Functional Tests Start: 05/25/19 08:06 Freq: Status: Active Protocol: Document 05/25/19 10:27 [facility] (Rec: 05/25/19 13:40 [facility] [id number]) Functional Tests Apley's Scratch Test Action 1- Left posterior shoulder Action 1- Right anterior shoulder Action 2- Left T2 Action 2- Right lateral neck Action 3- Left T10 Action 3- Right L4 PT-OP-J Posture/Palpation/Skin Start: 05/25/19 08:06 Freq: Status: Active Protocol: Document 05/25/19 10:27 [facility] (Rec: 05/25/19 13:40 [facility] [id number]) Posture Evaluation Position Sitting Head/C-Spine Posture Forward Head T-Spine Posture Increased Kyphosis L-Spine Posture Increased Lordosis Scapula Posture (L) Protracted,(R) Protracted, (R) Retracted Arm Posture (R) Internally Rotated Palpation Assessment Location RC insertion Palpation Location right and left Palpation Findings Tenderness PT-OP-K Range of Motion Start: 05/25/19 08:06 Freq: Status: Active Protocol: Document 05/25/19 10:27 [facility] (Rec: 05/25/19 10:55 [facility] [id number]) Cervical Spine Range of Motion Cervical Spine Active Testing Position Sitting Comments WNL Shoulder Goniometric Range of Motion Shoulder Left Flexion 175 Extension 35 Abduction 175 External Rotation at 45 degrees 90 Abduction Internal Rotation Behind Back (text) T10 Right Testing Position Supine Flexion 175 Extension 20 Abduction 170 External Rotation at 45 degrees 80 Abduction Internal Rotation Behind Back (text) L3 Shoulder ROM Limitations Shoulder ROM Limitations Muscle Weakness,Pain PT-OP-L Special Tests Start: 05/25/19 08:06 Freq: Status: Active Protocol: Document 05/25/19 10:27 [facility] (Rec: 05/25/19 13:40 [facility] [id number]) Special Tests Shoulder Special Tests Belly Press Test Results positive pain right, neg left Galarza Amandeep Impingement Test Results positive right, neg left Drop Arm Rotator Cuff Test Results negative jb PT-OP-M Strength Start: 05/25/19 08:06 Freq: Status: Active Protocol: Document 05/25/19 10:27 [facility] (Rec: 05/25/19 13:40 [facility] [id number]) Shoulder Strength Shoulder Manual Muscle Testing Right Flexion 4- Good- Extension 4- Good- Abduction (C5) 4- Good- External Rotation 4- Good- Internal Rotation 4 Good Left Flexion 4+ Good+ Extension 4+ Good+ Abduction (C5) 4+ Good+ Adduction 4+ Good+ Internal Rotation 4+ Good+ Elbow/Forearm Strength Elbow and Forearm Manual Muscle Testing jb Flexion (C6) 5 Normal Extension (C7) 5 Normal PT-OP-Q Treatments Start: 05/25/19 08:06 Freq: Status: Active Protocol: Document 06/10/19 10:31 [facility] (Rec: 06/10/19 10:58 [facility] [id number]) Therapeutic Exercises Supine Exercises serratus punch Resistance 2# Reps/Minutes 10x Prone Exercises shoulder hor ab/ad Reps/Minutes 10x Comments verbal and manual cues shoulder extension Reps/Minutes 10x Comments verbal and manual cues Standing Exercises shoulder isometric Standing Exercise Name ER Reps/Minutes 10x shoulder ER Reps/Minutes 10x Comments no resistance postural isometric Reps/Minutes 5x5 Comments verbal and manual cues Manual Therapy Treatment Soft Tissue Mobilization right biceps, deltoid Mobilization Type Myofascial Release,Rolling, Strumming,Sustained Pressure Intensity/Depth Moderate Body Position Hooklying jb UT, periscapular region Mobilization Type Myofascial Release,Strumming, Sustained Pressure Intensity/Depth Moderate Body Position Hooklying Joint Mobilizations inferior glide Joint GH Grade III Body Position Supine long axis distraction Joint GH Grade III Body Position Supine posterior glide Joint GH Direction AP Grade III Body Position Supine Taping lower trap Body Location right Treatment Focus facilitation Type of Tape Kinesio Tape Skin Inspection intact Comments to facilitate lower trap activation for correct scapulohumeral rhythm PT-OP-R Modalities Start: 05/25/19 08:06 Freq: Status: Active Protocol: Document 06/10/19 10:31 [facility] (Rec: 06/10/19 17:13 [facility] [id number]) Hot Pack/Cold Pack Treatment Cold Pack Location jb shoulders Patient Position Hooklying Treatment Duration (minutes) 10 Patient Tolerance Good PT-OP-T Assessment and Plan Start: 05/25/19 08:06 Freq: Status: Active Protocol: Document 06/10/19 10:31 [facility] (Rec: 06/10/19 10:58 [facility] [id number]) Physical Therapy Assessment Goals Four Impairment activity tolerance (Quickdash score 41) Short Term Goal (STG) Quickdash UE disability score decrease to no greater than 25 % STG Duration 4 wks Cooking Teacher Goal (LTG) Decrease Quickdash score to no greater than 15% Three Impairment strength Short Term Goal (STG) Instruct patient in HEP for shoulder strengthening and stabilization STG Duration 4 wks Senior Care Goal (LTG) Patient to demonstrate at least 4+/5 strength throughout bilateral shoulders LTG Duration 8 wks Two Impairment posture Short Term Goal (STG) Instruct patient in neutral postural alignment and importance for optimal shoulder function STG Duration 2 wks Cooking Teacher Goal (LTG) Patient to demonstrate improvement in postural alignment at rest and with functional activities LTG Duration 8 wks One Impairment pain jb shoulders right (6/10 ) greater than left (3/10) Senior Care Goal (LTG) Decrease pain to no greater than 2/10 jb LTG Duration 8 wks Physical Therapy Plan Frequency and Duration Frequency of Treatment 2x/Week Duration of Treatment 8 wks Plan of Care Start Date 05/25/19 Plan of Care End Date 07/24/19 Therapeutic Interventions Therapeutic Interventions Aquatic Therapy,Home Exercise Program,Joint Mobilizations, Manual Therapy,Neuromuscular Re-education,Patient/Caregiver Education,Self-Care/Home Management,Soft Tissue Mobilization,Taping, Therapeutic Activities, Therapeutic Exercises Modalities Cold Pack/Ice Massage,Electric Stimulation,Hot Packs, Iontophoresis,Ultrasound Next Visit Focus/Plan Next Visit Plan Evaluate response to new prone ex, further emphasis on inhibition of UT and facilitation of lower traps. Consider IFES to UT. Continue to progress strengthening jb shoulders
--- NOTE | 2019-06-15 14:46 | PT.OTN ---
Current Diagnoses Pain in right shoulder (06/15/19) Pain in left shoulder (06/15/19) Physical Therapy Treatment Note PT-OP-A Visit Information Start: 05/25/19 08:06 Freq: Status: Active Protocol: Document 06/15/19 14:34 GGD (Rec: 06/15/19 14:45 GGD [email or web address]) Out-Patient Physical Therapy Visit Information Visit Information Visit Type Treatment Note Visit Start Time 10:30 Visit Stop Time 11:20 Total Visit Minutes 50 Visit Number 7 Number of BOTTLING MACHINE OPERATOR Visits 1 PT-OP-B Current Condition Start: 05/25/19 08:06 Freq: Status: Active Protocol: Document 05/25/19 10:27 SAK (Rec: 05/25/19 10:55 SAK [id number]) Current Condition History of Current Condition Onset Date 2 years Current Complaints bilateral shoulder pain History of Current Condition No known accident or trauma. Pain reduced to managable after PT 1yr ago. Shortly after states he doesn't know what he did but pain got worse again. Left shoulder only feels with certain movements, unable to much at all with right UE. Worst movements lifting overhead, out to side. Doing standing ROM ex as previously instructed, not doing band or prone exercises. Takes walks for exercise. Prior Treatments and Tests x-ray: inflammation and arthritis. Treatment Goals Patient/Caregiver Goals Minimize pain, able to resume all usual activities. Prior Functional Status Baseline Function- ADL's Independent Baseline Function- Mobility Independent Baseline Function- Recreation/Hobbies No limitations Current Functional Impairments (Reported) Functional Limitations- ADL's painful Functional Limitations- Recreation/ painful Hobbies PT-OP-C Subjective Start: 05/25/19 08:06 Freq: Status: Active Protocol: Document 06/15/19 14:34 GGD (Rec: 06/15/19 14:45 GGD [email or web address]) OP-PT Subjective Patient Comments Patient Comments Pt states shoulders are about the same, He reports doing HEP . Pt states the tape didn't help. PT-OP-E Functional Tests Start: 05/25/19 08:06 Freq: Status: Active Protocol: Document 05/25/19 10:27 SAK (Rec: 05/25/19 13:40 SAK [id number]) Functional Tests Seraey's Scratch Test Action 1- Left posterior shoulder Action 1- Right anterior shoulder Action 2- Left T2 Action 2- Right lateral neck Action 3- Left T10 Action 3- Right L4 PT-OP-J Posture/Palpation/Skin Start: 05/25/19 08:06 Freq: Status: Active Protocol: Document 05/25/19 10:27 [facility] (Rec: 05/25/19 13:40 [facility] [id number]) Posture Evaluation Position Sitting Head/C-Spine Posture Forward Head T-Spine Posture Increased Kyphosis L-Spine Posture Increased Lordosis Scapula Posture (L) Protracted,(R) Protracted, (R) Retracted Arm Posture (R) Internally Rotated Palpation Assessment Location RC insertion Palpation Location right and left Palpation Findings Tenderness PT-OP-K Range of Motion Start: 05/25/19 08:06 Freq: Status: Active Protocol: Document 05/25/19 10:27 [facility] (Rec: 05/25/19 10:55 [facility] [id number]) Cervical Spine Range of Motion Cervical Spine Active Testing Position Sitting Comments WNL Shoulder Goniometric Range of Motion Shoulder Left Flexion 175 Extension 35 Abduction 175 External Rotation at 45 degrees 90 Abduction Internal Rotation Behind Back (text) T10 Right Testing Position Supine Flexion 175 Extension 20 Abduction 170 External Rotation at 45 degrees 80 Abduction Internal Rotation Behind Back (text) L3 Shoulder ROM Limitations Shoulder ROM Limitations Muscle Weakness,Pain PT-OP-L Special Tests Start: 05/25/19 08:06 Freq: Status: Active Protocol: Document 05/25/19 10:27 [facility] (Rec: 05/25/19 13:40 [facility] [id number]) Special Tests Shoulder Special Tests Belly Press Test Results positive pain right, neg left Galarza Amandeep Impingement Test Results positive right, neg left Drop Arm Rotator Cuff Test Results negative jb PT-OP-M Strength Start: 05/25/19 08:06 Freq: Status: Active Protocol: Document 05/25/19 10:27 [facility] (Rec: 05/25/19 13:40 [facility] [id number]) Shoulder Strength Shoulder Manual Muscle Testing Right Flexion 4- Good- Extension 4- Good- Abduction (C5) 4- Good- External Rotation 4- Good- Internal Rotation 4 Good Left Flexion 4+ Good+ Extension 4+ Good+ Abduction (C5) 4+ Good+ Adduction 4+ Good+ Internal Rotation 4+ Good+ Elbow/Forearm Strength Elbow and Forearm Manual Muscle Testing jb Flexion (C6) 5 Normal Extension (C7) 5 Normal PT-OP-Q Treatments Start: 05/25/19 08:06 Freq: Status: Active Protocol: Document 06/15/19 14:34 GGD (Rec: 06/15/19 14:45 GGD [email or web address]) Therapeutic Exercises Supine Exercises serratus punch Resistance 2# Reps/Minutes 10x horizontal abduction Resistance 2# Reps/Minutes 10x Prone Exercises Prone Y's Reps/Minutes 10 x Comments cues shoulder hor ab/ad Reps/Minutes 10x Comments verbal and manual cues shoulder extension Reps/Minutes 10x Comments verbal and manual cues Standing Exercises shoulder isometric Standing Exercise Name ER Reps/Minutes 10x shoulder ER Reps/Minutes 10x Comments no resistance postural isometric Reps/Minutes 5x5 Comments verbal and manual cues Manual Therapy Treatment Soft Tissue Mobilization right biceps, deltoid Mobilization Type Myofascial Release,Rolling, Strumming,Sustained Pressure Intensity/Depth Moderate Body Position Hooklying jb UT, periscapular region Mobilization Type Myofascial Release,Strumming, Sustained Pressure Intensity/Depth Moderate Body Position Hooklying Joint Mobilizations inferior glide Joint GH Grade III Body Position Supine Comments Right long axis distraction Joint GH Grade III Body Position Supine Comments Right posterior glide Joint GH Direction AP Grade III Body Position Supine Comments Right PT-OP-R Modalities Start: 05/25/19 08:06 Freq: Status: Active Protocol: Document 06/15/19 14:34 GGD (Rec: 06/15/19 14:45 GGD [email or web address]) Hot Pack/Cold Pack Treatment Cold Pack Location jb shoulders Patient Position Hooklying Treatment Duration (minutes) 10 Patient Tolerance Good PT-OP-T Assessment and Plan Start: 05/25/19 08:06 Freq: Status: Active Protocol: Document 06/15/19 14:34 GGD (Rec: 06/15/19 14:45 GGD [email or web address]) Physical Therapy Assessment Goals Four Impairment activity tolerance (Quickdash score 41) Short Term Goal (STG) Quickdash UE disability score decrease to no greater than 25 % STG Duration 4 wks Malt House Supervisor Goal (LTG) Decrease Quickdash score to no greater than 15% Three Impairment strength Short Term Goal (STG) Instruct patient in HEP for shoulder strengthening and stabilization STG Duration 4 wks Group Home Goal (LTG) Patient to demonstrate at least 4+/5 strength throughout bilateral shoulders LTG Duration 8 wks Two Impairment posture Short Term Goal (STG) Instruct patient in neutral postural alignment and importance for optimal shoulder function STG Duration 2 wks Group Home Goal (LTG) Patient to demonstrate improvement in postural alignment at rest and with functional activities LTG Duration 8 wks One Impairment pain jb shoulders right (6/10 ) greater than left (3/10) Malt House Supervisor Goal (LTG) Decrease pain to no greater than 2/10 jb LTG Duration 8 wks Assessment Summary Assessment Pt improved with low trap activation. He did need min Cues to limit UT and posture during exercise. Physical Therapy Plan Frequency and Duration Frequency of Treatment 2x/Week Duration of Treatment 8 wks Plan of Care Start Date 05/25/19 Plan of Care End Date 07/24/19 Next Visit Focus/Plan Next Note Type Treatment Note Next Visit Plan Continue to progress strengthening jb shoulders
--- NOTE | 2019-06-22 15:14 | PT.OTN ---
Current Diagnoses Pain in right shoulder (06/22/19) Pain in left shoulder (06/22/19) Physical Therapy Treatment Note PT-OP-A Visit Information Start: 05/25/19 08:06 Freq: Status: Active Protocol: Document 06/22/19 15:03 GGD (Rec: 06/22/19 15:13 GGD [email or web address]) Out-Patient Physical Therapy Visit Information Visit Information Visit Type Treatment Note Visit Start Time 10:30 Visit Stop Time 11:20 Total Visit Minutes 50 Visit Number 8 Number of LAP POLISHER Visits 2 PT-OP-B Current Condition Start: 05/25/19 08:06 Freq: Status: Active Protocol: Document 05/25/19 10:27 SAK (Rec: 05/25/19 10:55 SAK [id number]) Current Condition History of Current Condition Onset Date 2 years Current Complaints bilateral shoulder pain History of Current Condition No known accident or trauma. Pain reduced to managable after PT 1yr ago. Shortly after states he doesn't know what he did but pain got worse again. Left shoulder only feels with certain movements, unable to much at all with right UE. Worst movements lifting overhead, out to side. Doing standing ROM ex as previously instructed, not doing band or prone exercises. Takes walks for exercise. Prior Treatments and Tests x-ray: inflammation and arthritis. Treatment Goals Patient/Caregiver Goals Minimize pain, able to resume all usual activities. Prior Functional Status Baseline Function- ADL's Independent Baseline Function- Mobility Independent Baseline Function- Recreation/Hobbies No limitations Current Functional Impairments (Reported) Functional Limitations- ADL's painful Functional Limitations- Recreation/ painful Hobbies PT-OP-C Subjective Start: 05/25/19 08:06 Freq: Status: Active Protocol: Document 06/22/19 15:03 GGD (Rec: 06/22/19 15:13 GGD [email or web address]) OP-PT Subjective Patient Comments Patient Comments Pt states shoulders are about the same, no increase in pain with increase in activity. PT-OP-E Functional Tests Start: 05/25/19 08:06 Freq: Status: Active Protocol: Document 05/25/19 10:27 SAK (Rec: 05/25/19 13:40 SAK [id number]) Functional Tests Seraey's Scratch Test Action 1- Left posterior shoulder Action 1- Right anterior shoulder Action 2- Left T2 Action 2- Right lateral neck Action 3- Left T10 Action 3- Right L4 PT-OP-J Posture/Palpation/Skin Start: 05/25/19 08:06 Freq: Status: Active Protocol: Document 05/25/19 10:27 [facility] (Rec: 05/25/19 13:40 [facility] [id number]) Posture Evaluation Position Sitting Head/C-Spine Posture Forward Head T-Spine Posture Increased Kyphosis L-Spine Posture Increased Lordosis Scapula Posture (L) Protracted,(R) Protracted, (R) Retracted Arm Posture (R) Internally Rotated Palpation Assessment Location RC insertion Palpation Location right and left Palpation Findings Tenderness PT-OP-K Range of Motion Start: 05/25/19 08:06 Freq: Status: Active Protocol: Document 05/25/19 10:27 [facility] (Rec: 05/25/19 10:55 [facility] [id number]) Cervical Spine Range of Motion Cervical Spine Active Testing Position Sitting Comments WNL Shoulder Goniometric Range of Motion Shoulder Left Flexion 175 Extension 35 Abduction 175 External Rotation at 45 degrees 90 Abduction Internal Rotation Behind Back (text) T10 Right Testing Position Supine Flexion 175 Extension 20 Abduction 170 External Rotation at 45 degrees 80 Abduction Internal Rotation Behind Back (text) L3 Shoulder ROM Limitations Shoulder ROM Limitations Muscle Weakness,Pain PT-OP-L Special Tests Start: 05/25/19 08:06 Freq: Status: Active Protocol: Document 05/25/19 10:27 [facility] (Rec: 05/25/19 13:40 [facility] [id number]) Special Tests Shoulder Special Tests Belly Press Test Results positive pain right, neg left Galarza Amandeep Impingement Test Results positive right, neg left Drop Arm Rotator Cuff Test Results negative jb PT-OP-M Strength Start: 05/25/19 08:06 Freq: Status: Active Protocol: Document 05/25/19 10:27 [facility] (Rec: 05/25/19 13:40 [facility] [id number]) Shoulder Strength Shoulder Manual Muscle Testing Right Flexion 4- Good- Extension 4- Good- Abduction (C5) 4- Good- External Rotation 4- Good- Internal Rotation 4 Good Left Flexion 4+ Good+ Extension 4+ Good+ Abduction (C5) 4+ Good+ Adduction 4+ Good+ Internal Rotation 4+ Good+ Elbow/Forearm Strength Elbow and Forearm Manual Muscle Testing jb Flexion (C6) 5 Normal Extension (C7) 5 Normal PT-OP-Q Treatments Start: 05/25/19 08:06 Freq: Status: Active Protocol: Document 06/22/19 15:03 GGD (Rec: 06/22/19 15:13 GGD [email or web address]) Therapeutic Exercises Prone Exercises Prone Y's Reps/Minutes 10 x Comments cues shoulder extension Reps/Minutes 10x Comments verbal and manual cues Sidelying Exercises shoulder ER Reps/Minutes 10x shoulder abduction Reps/Minutes 5x Sitting Exercises pulleys Sitting Exercise Name flex Reps/Minutes 10x Standing Exercises shoulder ext Resistance Level 2 Reps/Minutes 10x row Resistance level 2 Reps/Minutes 10x Manual Therapy Treatment Soft Tissue Mobilization right biceps, deltoid Mobilization Type Myofascial Release,Rolling, Strumming,Sustained Pressure Intensity/Depth Moderate Body Position Hooklying bj UT, periscapular region Mobilization Type Myofascial Release,Strumming, Sustained Pressure Intensity/Depth Moderate Body Position Hooklying Joint Mobilizations inferior glide Joint GH Grade III Body Position Supine Comments Right PT-OP-R Modalities Start: 05/25/19 08:06 Freq: Status: Active Protocol: Document 06/22/19 15:03 GGD (Rec: 06/22/19 15:13 GGD [email or web address]) Hot Pack/Cold Pack Treatment Cold Pack Location jb shoulders Patient Position Hooklying Treatment Duration (minutes) 10 Patient Tolerance Good PT-OP-T Assessment and Plan Start: 05/25/19 08:06 Freq: Status: Active Protocol: Document 06/22/19 15:03 GGD (Rec: 06/22/19 15:13 GGD [email or web address]) Physical Therapy Assessment Goals Four Impairment activity tolerance (Quickdash score 41) Short Term Goal (STG) Quickdash UE disability score decrease to no greater than 25 % STG Duration 4 wks Remedial Project Manager Goal (LTG) Decrease Quickdash score to no greater than 15% Three Impairment strength Short Term Goal (STG) Instruct patient in HEP for shoulder strengthening and stabilization STG Duration 4 wks [facility] Goal (LTG) Patient to demonstrate at least 4+/5 strength throughout bilateral shoulders LTG Duration 8 wks Two Impairment posture Short Term Goal (STG) Instruct patient in neutral postural alignment and importance for optimal shoulder function STG Duration 2 wks Remedial Project Manager Goal (LTG) Patient to demonstrate improvement in postural alignment at rest and with functional activities LTG Duration 8 wks One Impairment pain jb shoulders right (6/10 ) greater than left (3/10) [facility] Goal (LTG) Decrease pain to no greater than 2/10 jb LTG Duration 8 wks Assessment Summary Assessment Pt able to progress strengthening with mobility. He had improved control of low trap. Physical Therapy Plan Frequency and Duration Frequency of Treatment 2x/Week Duration of Treatment 8 wks Plan of Care Start Date 05/25/19 Plan of Care End Date 07/24/19 Next Visit Focus/Plan Next Note Type Treatment Note Next Visit Plan Continue to progress strengthening jb shoulders
--- NOTE | 2019-06-23 10:44 | PT.OPDS ---
Current Diagnoses Pain in right shoulder (06/22/19) Pain in left shoulder (06/22/19) Visit Care Team Role Provider Type Aleksandar Medina MD Attending Provider Physician Primary Care Provider Specialty: Family Practice Address: [address] [place] [address], [facility] Email: [email or web address] Visit Number Visit Number 8 Discharge Summary PT-OP-B Current Condition Start: 05/25/19 08:06 Freq: Status: Active Protocol: Document 05/25/19 10:27 SAK (Rec: 05/25/19 10:55 [facility] [id number]) Current Condition History of Current Condition Onset Date 2 years Current Complaints bilateral shoulder pain History of Current Condition No known accident or trauma. Pain reduced to managable after PT 1yr ago. Shortly after states he doesn't know what he did but pain got worse again. Left shoulder only feels with certain movements, unable to much at all with right UE. Worst movements lifting overhead, out to side. Doing standing ROM ex as previously instructed, not doing band or prone exercises. Takes walks for exercise. Prior Treatments and Tests x-ray: inflammation and arthritis. Treatment Goals Patient/Caregiver Goals Minimize pain, able to resume all usual activities. Prior Functional Status Baseline Function- ADL's Independent Baseline Function- Mobility Independent Baseline Function- Recreation/Hobbies No limitations Current Functional Impairments (Reported) Functional Limitations- ADL's painful Functional Limitations- Recreation/ painful Hobbies PT-OP-C Subjective Start: 05/25/19 08:06 Freq: Status: Active Protocol: Document 06/22/19 15:03 GGD (Rec: 06/22/19 15:13 GGD [email or web address]) OP-PT Subjective Patient Comments Patient Comments Pt states shoulders are about the same, no increase in pain with increase in activity. PT-OP-E Functional Tests Start: 05/25/19 08:06 Freq: Status: Active Protocol: Document 05/25/19 10:27 SAK (Rec: 05/25/19 13:40 SAK [id number]) Functional Tests Apley's Scratch Test Action 1- Left posterior shoulder Action 1- Right anterior shoulder Action 2- Left T2 Action 2- Right lateral neck Action 3- Left T10 Action 3- Right L4 PT-OP-J Posture/Palpation/Skin Start: 05/25/19 08:06 Freq: Status: Active Protocol: Document 05/25/19 10:27 [facility] (Rec: 05/25/19 13:40 [facility] [id number]) Posture Evaluation Position Sitting Head/C-Spine Posture Forward Head T-Spine Posture Increased Kyphosis L-Spine Posture Increased Lordosis Scapula Posture (L) Protracted,(R) Protracted, (R) Retracted Arm Posture (R) Internally Rotated Palpation Assessment Location RC insertion Palpation Location right and left Palpation Findings Tenderness PT-OP-K Range of Motion Start: 05/25/19 08:06 Freq: Status: Active Protocol: Document 05/25/19 10:27 SAK (Rec: 05/25/19 10:55 [facility] [id number]) Cervical Spine Range of Motion Cervical Spine Active Testing Position Sitting Comments WNL Shoulder Goniometric Range of Motion Shoulder Left Flexion 175 Extension 35 Abduction 175 External Rotation at 45 degrees 90 Abduction Internal Rotation Behind Back (text) T10 Right Testing Position Supine Flexion 175 Extension 20 Abduction 170 External Rotation at 45 degrees 80 Abduction Internal Rotation Behind Back (text) L3 Shoulder ROM Limitations Shoulder ROM Limitations Muscle Weakness,Pain PT-OP-L Special Tests Start: 05/25/19 08:06 Freq: Status: Active Protocol: Document 05/25/19 10:27 [facility] (Rec: 05/25/19 13:40 [facility] [id number]) Special Tests Shoulder Special Tests Belly Press Test Results positive pain right, neg left Galarza Amandeep Impingement Test Results positive right, neg left Drop Arm Rotator Cuff Test Results negative jb PT-OP-M Strength Start: 05/25/19 08:06 Freq: Status: Active Protocol: Document 05/25/19 10:27 [facility] (Rec: 05/25/19 13:40 [facility] [id number]) Shoulder Strength Shoulder Manual Muscle Testing Right Flexion 4- Good- Extension 4- Good- Abduction (C5) 4- Good- External Rotation 4- Good- Internal Rotation 4 Good Left Flexion 4+ Good+ Extension 4+ Good+ Abduction (C5) 4+ Good+ Adduction 4+ Good+ Internal Rotation 4+ Good+ Elbow/Forearm Strength Elbow and Forearm Manual Muscle Testing jb Flexion (C6) 5 Normal Extension (C7) 5 Normal PT-OP-T Assessment and Plan Start: 05/25/19 08:06 Freq: Status: Active Protocol: Document 06/23/19 10:44 [facility] (Rec: 06/23/19 10:44 [facility] [id number]) Physical Therapy Plan Discharge Physical Therapy Discharge Reasons Patient Request
== END 2019-06-23 12:43 ==
LOC: PHYS 10:30
PROVIDERS: PCP Family Medicine; Visit Provider Family Medicine
DX: M25.511 Pain in right shoulder (principal); M25.512 Pain in left shoulder
CPT/HCPCS: 97010; 97035; 97110; 97140; 97161; 97535

== ENCOUNTER → 2020-10-10 12:04 | Outpatient (CLI) | payer OTHER, MEDICAID, SELFPAY ==
--- NOTE | 2020-10-10 12:05 | DI.US.S_ITS ---
PROCEDURE: US SCROTUM INDICATIONS: rt sided scrotal cyst TECHNIQUE: Real-time scanning was performed of the scrotum and testicles, with image documentation. Color and pulse Doppler interrogation was performed of both testicles. COMPARISON: [facility], , US SCROTUM, 12/04/2018, 15:30. FINDINGS: Right: Testicle is normal in size at 3.4 x 3.7 x 5.5 cm, and homogenous in echotexture. Epididymis is normal in overall size and morphology. No hydrocele or varicoceles. Overlying scrotal skin is normal in thickness. What appears to be a right epididymal cyst measures 4.2 x 3.1 x 4.2 cm, without significant change from prior study. This contains several low level internal echoes, and also could represent a spermatocele. Left: Testicle is normal in size at 3.3 x 3.4 x 5.2 cm, and homogeneous in echotexture. Epididymis is normal in overall size and morphology. No hydrocele or varicoceles. Overlying scrotal skin is normal in thickness. Resolution of a previously present left epididymal cyst. Doppler: Color and pulse Doppler demonstrate normal and symmetric arterial flow in both testicles. IMPRESSION: Right-sided presumed epididymal cyst versus spermatocele stable over time, no sign of hyperemia associated. No testicular mass lesion or an inflammatory abnormality is found. Dictated by: Kojo Carrillo M.D. on 10/10/2020 at 14:26 Approved by: Kojo Carrillo M.D. on 10/10/2020 at 14:28
== END ==
PROVIDERS: PCP Family Medicine; Referring Provider Family Medicine; Visit Provider Family Medicine
DX: N50.89 Other specified disorders of the male genital organs (principal)
CPT/HCPCS: 76870

== ENCOUNTER → 2021-04-26 10:18 | Outpatient (CLI) | payer OTHER, MEDICAID, SELFPAY ==
[2021-04-26 13:01] LABS: Prostate Specific Antigen 1.13 ng/mL (0.10-4.00)
== END ==
PROVIDERS: PCP Family Medicine; Referring Provider Urology; Visit Provider Urology
DX: N42.9 Disorder of prostate, unspecified (principal)
CPT/HCPCS: 36415; 84153

== ENCOUNTER → 2021-06-26 11:07 | Outpatient (CLI) | payer OTHER, MEDICAID, SELFPAY ==
--- NOTE | 2021-06-26 11:10 | DI.US.S_ITS ---
PROCEDURE: US SCROTUM INDICATIONS: Right scrotal mass (spermatocele) TECHNIQUE: Real-time scanning was performed of the scrotum and testicles, with image documentation. Color and pulse Doppler interrogation was performed of both testicles. COMPARISON: [facility], , US SCROTUM, 10/10/2020, 12:14. FINDINGS: Right: Testicle is normal in size at 5.8 x 3.0 x 3.5 cm, and homogenous in echotexture. 1 mm simple appearing cyst/spermatocele seen at the lateral aspect . Right epididymis is not well seen and in its place is a large cystic appearing structure measuring 6.1 x 3.1 x 5.6 cm, increased from the prior study (4.2 x 3.1 x 4.2 cm). Internal low level echoes as before. No hydrocele or varicoceles. Overlying scrotal skin is normal in thickness. Left: Testicle is normal in size at 5.3 x 2.9 x 3.4 cm, and homogeneous in echotexture. Epididymis is normal in overall size and morphology. No hydrocele or varicoceles. Overlying scrotal skin is normal in thickness. Doppler: Color and pulse Doppler demonstrate normal and symmetric arterial flow in both testicles. IMPRESSION: Redemonstrated large cystic appearing structure in the region of the right epididymis, potentially spermatocele/cyst. This appears increased in size since the prior study. 1 mm presumed cyst versus spermatocele involving the lateral right testicle, technically too small to characterize. Dictated by: rBodie Barney M.D. on 06/26/2021 at 14:06 Approved by: Brodie Barney M.D. on 06/26/2021 at 14:11
== END ==
PROVIDERS: PCP Family Medicine; Referring Provider Urology; Visit Provider Urology
DX: N43.40 Spermatocele of epididymis, unspecified (principal); N50.89 Other specified disorders of the male genital organs
CPT/HCPCS: 76870

== ENCOUNTER → 2021-07-09 11:33 | Outpatient (CLI) | payer OTHER, MEDICAID, SELFPAY ==
[2021-07-09 13:19] LABS: Prostate Specific Antigen 1.09 ng/mL (0.10-4.00)
== END ==
PROVIDERS: PCP Family Medicine; Referring Provider Urology; Visit Provider Urology
DX: N42.9 Disorder of prostate, unspecified (principal)
CPT/HCPCS: 36415; 84153

== ENCOUNTER 2021-09-09 01:54 | Emergency (ER) | payer OTHER, MEDICAID, SELFPAY ==
[2021-09-09 02:00] VITALS: BP 144/84; PULSE 61; RESP 18; TEMP 36.1; O2SAT 97; BMI 25.1
--- NOTE | 2021-09-09 02:21 | ED.ABDPAIN ---
HPI - Abdominal Pain General Chief Complaint: Abdominal Pain Stated Complaint: left chest and abdominal pain Time Seen by Provider: 09/09/21 02:19 Source: patient Mode of arrival: Ambulatory Limitations: no limitations History of Present Illness HPI narrative: This is a 55-year-old male comes emergency department complaint of abdominal pain. Patient states started earlier in the day had so improve went to sleep and was awakened was from sleep with left-sided abdominal pain. Patient has not had similar symptoms in the past. No fevers or chills. Had some nausea but no vomiting. He has had normal bowel movements with no bright red blood or melena. Patient has had no flank or back pain. Patient denies any testicular pain. No dysuria, urgency frequency or discharge. Patient has had kidney stones in the past but states pain is somewhat similar but very different location. He does have a cyst on his testicle which sometimes hurts but is not causing issues currently. He denies medical issues otherwise currently. He has had lithotripsy for kidney stones but no other surgeries. He does vape tobacco, he drinks alcohol occasionally, no illicit. Related Data Allergies Allergy/AdvReac Type Severity Reaction Status Date / Time No Known Drug Allergies Allergy Verified 07/20/21 09:09 Review of Systems Review of Systems ROS Unobtainable: All systems reviewed & are unremarkable except as noted in HPI and below Patient History Medical History Abnormal CXR Abnormal prostate by palpation ADHD Asthma Chronic back pain COPD (chronic obstructive pulmonary disease) Hemorrhoid History of kidney stones Kidney stones Migraine Shoulder pain Spermatocele of epididymis Surgical History Anesthesia History of lithotripsy (~2013) Family History Father Age: 81 Heart disease Hypertension Grandmother Heart disease Mother Aneurysm Heart disease Hypertension Grandfather Age: 58 Pancreatic cancer Grandmother Stroke Kidney stones Family/Other SIDS (sudden syndrome) Social History marital status: occupational status: other Previous occupational history: retired - [employer] Smoking Status: Former smoker alcohol intake: never substance use type: does not use Type(s) of exercise: walking frequency: 5-6 times per week Smoking Status: Former smoker alcohol intake frequency: 0-2 drinks per day Substance Use Type: does not use Exam Narrative Exam Narrative: GENERAL: Alert and oriented x three, male in [id number] distress. HEENT: Head normocephalic, atraumatic, EOMI, pupils reactive, face symmetric, moist mucous membranes NECK: Supple, full range of motion CARDIOVASCULAR: Regular rate and rhythm without murmurs, rubs or gallops. RESPIRATORY: Breath sounds equal bilaterally, no wheezes rales or rhonchi. ABDOMEN: Soft, nontender. Normoactive bowel sounds all 4 quadrants. No guarding or rebound, rigidity, no mass : No CVA tenderness EXTREMITIES: Normal range of motion, no clubbing or edema. Neurovascularly intact NEUROLOGICAL: Cranial nerves II through XII grossly intact. Moving all extremities SKIN: Warm, dry, no petechiae, no rashes or lesions. Initial Vital Signs Initial Vital Signs: Vital Signs Temperature 97.0 F L 09/09/21 02:00 Pulse Rate 61 09/09/21 02:00 Respiratory Rate 18 09/09/21 02:00 Blood Pressure 144/84 H 09/09/21 02:00 Pulse Oximetry 97 09/09/21 02:00 Course Orders Ordered: ED Orders 09/09/21 02:26 CT abdomen pelvis w con Stat 09/09/21 02:30 Complete Blood Count AUTO DIFF Stat Comprehensive Metabolic Panel Stat Lipase Stat Discontinued Medications Sodium Chloride (Normal Saline 0.9%) 1,000 mls @ 1,000 mls/hr IV BOLUS ONE Stop: 09/09/21 03:25 Last Infusion: 09/09/21 04:17 Dose: 0 mls/hr Documented by: Admin: 09/09/21 02:46 Dose: 1,000 mls/hr Documented by: KANIKA Ketorolac Tromethamine (Ketorolac 30 Mg/Ml Vial) 30 mg IV NOW ONE Stop: 09/09/21 02:27 Last Admin: 09/09/21 02:46 Dose: 30 mg Documented by: KANIKA Ondansetron HCl (Ondansetron 4 Mg/2 Ml Inj) 4 mg IV NOW ONE Stop: 09/09/21 02:27 Last Admin: 09/09/21 02:46 Dose: 4 mg Documented by: KANIKA Vital Signs Vital signs: Vital Signs - 8 hr 09/09/21 02:00 09/09/21 04:02 Temperature 97.0 F L Pulse Rate 61 65 Respiratory Rate 18 20 Blood Pressure 144/84 H 104/60 Pulse Oximetry 97 99 MDM - Abdominal Pain Lab Data Result diagrams: 09/09/21 02:30 09/09/21 02:30 Labs: Lab Results 09/09/21 09/09/21 Range/Units 02:30 02:30 WBC 9.2 (4.5-11.0) X10^3/uL RBC 4.58 (4.5-5.9) X10^6/uL Hgb 13.9 (13.5-17.5) g/dL Hct 41.0 (41-53) % MCV 89.5 (80-100) fL MCH 30.3 (26-34) PG MCHC 33.9 (30-36) % RDW 13.4 (11.6-14.8) % Plt Count 352 (150-400) X10^3/uL Neut % (Auto) 56.7 (50-75) % Lymph % (Auto) 29.8 (25-40) % [place] % (Auto) 6.2 (3-14) % Eos % (Auto) 4.9 H (2-4) % Baso % (Auto) 2.4 H (0-2) % Neut # (Auto) 5200 (7114-1112) /uL Lymph # (Auto) 2700 (2520-5057) /uL [place] # (Auto) 600 (0-900) /uL Eos # (Auto) 500 H (0-450) /uL Baso # (Auto) 200 H (0-100) /uL Sodium 139 (137-145) mmol/L Potassium 4.1 (3.4-5.1) mmol/L Chloride 105 (98-107) mmol/L Carbon Dioxide 28 (22-32) mmol/L BUN 12 (9-20) mg/dL Creatinine 0.80 (0.66-1.25) mg/dL Estimated GFR > 60.0 (>60) mL/min BUN/Creatinine Ratio 15.0 (6-22) Glucose 107 H (70-100) mg/dL Calcium 10.2 (8.4-10.2) mg/dL Total Bilirubin 0.5 (0.2-1.3) mg/dL AST 24 (17-59) IU/L ALT 19 (<50) IU/L Alkaline Phosphatase 49 (38-126) U/L Total Protein 8.0 (6.3-8.2) g/dL Albumin 4.8 (3.5-5.0) g/dL Globulin 3.2 (1.7-4.1) g/dL Albumin/Globulin Ratio 1.5 (1.0-2.8) Lipase 171 (23-300) U/L Point of care testing: Urine Dip Bedside Urine Glucose Negative Bedside Urine Bilirubin - Negative Bedside Urine Ketone - Negative Urine Specific Venus 1.025 Bedside Urine Occult Blood - Negative Bedside Urine pH 6 Bedside Urine Protein - Negative Bedside Urine Urobilinogen - Negative Bedside Urine Nitrite - Negative Bedside Urine Leukocytes - Negative Esterase Imaging Data CT scan - abdomen/pelvis: Radiologist's Impression: Multiple fluid-filled loops of small bowel, few or borderline daily left mid abdomen parents findings suggestive enteritis but does not suggest obstruction. There is diagrammed to kilos this without diverticulitis. No other acute findings appreciated. Patient feels much better after some Toradol and Zofran. Plan for watchful waiting. Tylenol and ibuprofen as needed for pain and return precautions. Discharge Plan Departure Patient Disposition: Home Clinical Impression: Abdominal pain Instructions: DI for Abdominal Pain-Adult Activity Restrictions/Additional Instructions: Your imaging today does show some changes that can be consistent with enteritis or inflammation in the small bowel. There are no signs of infection at this time. You may take Tylenol up to a 1000 mg every 8 hours and/or ibuprofen up to 800 mg every 8 hours. Please return for fevers, new or worsening abdominal pain, persistent vomiting, black or bloody stools, lightheaded or passing out, difficulty with urination or other new or concerning symptoms. Referrals: Aleksandar Medina MD [Primary Care Provider] -
--- NOTE | 2021-09-09 02:26 | DI.CT.S_ITS ---
PROCEDURE: CT ABDOMEN PELVIS W CON INDICATIONS: L sided abd pain TECHNIQUE: After the administration of oral and intravenous contrast, axial sections were acquired from the lung bases to the pubic symphysis. Coronal and sagittal reformats were performed. For radiation dose reduction, the following was used: automated exposure control, adjustment of mA and/or kV according to patient size. COMPARISON:None. FINDINGS: Image quality: Excellent. Lung bases: Unremarkable. Heart: No significant findings. ABDOMEN: Liver: Unremarkable. Gallbladder: Unremarkable. Biliary ducts: Unremarkable. Pancreas: Unremarkable. Spleen: Unremarkable. Adrenal Glands: Unremarkable. Kidneys and Ureters: Unremarkable. Stomach and Bowel: Stomach, small bowel loops, and colon are unremarkable. There is sigmoid colon diverticulosis without evidence of diverticulitis. Multiple fluid-filled loops of small bowel are noted some of which are mildly dilated in the left mid abdomen measuring up to 3 cm in diameter. The appendix is normal. Peritoneum: No abnormal intraperitoneal fluid. No free air. Ventral Wall: No hernia. Abdominal Nodes: No retroperitoneal or mesenteric adenopathy by size criteria. Vessels: Aorta and inferior vena cava are normal in size. PELVIS: Pelvic Organs: Unremarkable. Bladder: Unremarkable. Pelvic Nodes: No enlarged lymph nodes. Miscellaneous: No inguinal hernias are seen. Bones: Unremarkable. IMPRESSION: Multiple fluid-filled loops of small bowel, few of which are borderline dilated in the left mid abdomen. The findings suggest enteritis. The pattern does not suggest obstruction. Comment: Final report is concordant with preliminary interpretation by [facility] Dictated by: Win Rose M.D. on 09/09/2021 at 7:09 Approved by: Win Rose M.D. on 09/09/2021 at 7:11
[2021-09-09 02:44] LABS: Add Manual Diff / Slide Review NO; Basophils Absolute Auto 200 /uL (0-100); Basophils Percent Auto 2.4 % (0-2); Eosinophils Absolute Auto 500 /uL (0-450); Eosinophils Percent Auto 4.9 % (2-4); Hemoglobin 13.9 g/dL (13.5-17.5); Lymphocytes Absolute Auto 2700 /uL (1100-4500); Lymphocytes Percent Auto 29.8 % (25-40); Mean Corpuscular HGB Conc 33.9 % (30-36); Mean Corpuscular Hemoglobin 30.3 PG (26-34); Mean Corpuscular Volume 89.5 fL (80-100); Monocytes Absolute Auto 600 /uL (0-900); Monocytes Percent Auto 6.2 % (3-14); Neutrophils Absolute Auto 5200 /uL (1500-7000); Neutrophils Percent Auto 56.7 % (50-75); Platelet Count 352 X10^3/uL (150-400); Red Blood Cell Count 4.58 X10^6/uL (4.5-5.9); Red Cell Distribution Width 13.4 % (11.6-14.8); White Blood Cell Count 9.2 X10^3/uL (4.5-11.0)
[2021-09-09] MEDS: KETOROLAC 30 MG/ML VIAL IV (02:46)
[2021-09-09] MEDS: SODIUM CHLORIDE 0.9% 1,000 ML 1000 ML IV (02:46)
[2021-09-09] MEDS: ONDANSETRON 4 MG/2 ML INJ IV (02:46)
[2021-09-09 02:48] LABS: Alanine Aminotransferase 19 IU/L (<50); Albumin 4.8 g/dL (3.5-5.0); Albumin Globulin Ratio 1.5 (1.0-2.8); Alkaline Phosphatase 49 U/L (38-126); Aspartate Aminotransferase 24 IU/L (17-59); Bilirubin Total 0.5 mg/dL (0.2-1.3); Blood Urea Nitrogen 12 mg/dL (9-20); Calcium 10.2 mg/dL (8.4-10.2); Carbon Dioxide 28 mmol/L (22-32); Chloride 105 mmol/L (98-107); Estimated Glomerular Filt Rate > 60.0 mL/min (>60); Globulin 3.2 g/dL (1.7-4.1); Glucose 107 mg/dL (70-100); HEMOLYSIS < 15 (0-50); Lipase 171 U/L (23-300); Potassium 4.1 mmol/L (3.4-5.1); Sodium 139 mmol/L (137-145)
[2021-09-09 04:02] VITALS: BP 104/60; PULSE 65; RESP 20; O2SAT 99
== END 2021-09-09 04:20 | disposition home or self-care (01) ==
PROVIDERS: Emergency Provider Emergency Medicine; PCP Family Medicine
DX: R10.9 Unspecified abdominal pain (principal); R07.89 Other chest pain
CPT/HCPCS: 36415; 74177; 80053; 81003; 83690; 85025; 99284; J1885; J2405; Q9967

== ENCOUNTER 2021-09-11 03:49 | Emergency (ER) | payer OTHER, MEDICAID, SELFPAY ==
[2021-09-11] VITALS (11 sets, daily range): BP systolic 137–164; BP diastolic 69–86; PULSE 46–59; RESP 15–34; TEMP 36.6; O2SAT 92–100; BMI 25.1
--- NOTE | 2021-09-11 03:58 | ED.ABDPAIN ---
HPI - Abdominal Pain General Chief Complaint: Chest Pain Stated Complaint: left abd pain x2 days Time Seen by Provider: 09/11/21 03:55 History of Present Illness HPI narrative: Patient is a 55-year-old male with history of COPD and kidney stones presenting with left upper abdominal pain. He has actually seen and evaluated here 2 days ago for the same that time his CT did show dilated loops of small bowel which were on the cusp. He states he is having pain from the left side of his chest although wait a down in through his abdomen. He denies any diarrhea, nausea or vomiting. He is having that left-sided chest pain that radiates down. It is sharp and stabbing he overall appears quite uncomfortable. He denies any cough fever or palpitations. This is significantly worse than what it was 2 days ago. He said his both times it will come from him but his sleep. He said last time the pain improved he was able to go about his day however this morning he woke up at about 130 and the pain has continued. He did take ibuprofen at home which has not helped. Related Data Previous Rx's Medication Instructions Recorded hydrocodone 5 mg-acetaminophen 325 1 tab PO Q6H PRN #10 tab 09/11/21 mg tablet Allergies Allergy/AdvReac Type Severity Reaction Status Date / Time No Known Drug Allergies Allergy Verified 07/20/21 09:09 Review of Systems Review of Systems Narrative: GENERAL: Denies chills, fatigue, malaise, fever, sweats, travel HEENT: Denies sinus pain, ear pain, sore throat, difficulty swallowing, neck pain RESPIRATORY: Denies dyspnea, cough, wheezing, hemoptysis, sputum. CARDIOVASCULAR: See HPI GASTROINTESTINAL: See HPI : Denies dysuria, frequency, incontinence, hematuria, urinary retention, flank pain. MUSCULOSKELETAL: Denies weakness, joint pain, or bony pain SKIN: No rash, no erythema, no pruritus NEUROLOGIC: Denies weakness, dizziness, headache, numbness, change in speech, confusion PSYCHIATRIC: No concerning psychosocial issues. 12 point review of systems is negative except for those stated above and HPI Patient History Medical History Abnormal CXR Abnormal prostate by palpation ADHD Asthma Chronic back pain COPD (chronic obstructive pulmonary disease) Hemorrhoid History of kidney stones Kidney stones Migraine Shoulder pain Spermatocele of epididymis Surgical History Anesthesia History of lithotripsy (~2013) Family History Father Age: 81 Heart disease Hypertension Grandmother Heart disease Mother Aneurysm Heart disease Hypertension Grandfather Age: 58 Pancreatic cancer Grandmother Stroke Kidney stones Family/Other SIDS (sudden syndrome) Social History marital status: occupational status: other Previous occupational history: retired - [employer] Smoking Status: Former smoker alcohol intake: never substance use type: does not use Type(s) of exercise: walking frequency: 5-6 times per week Smoking Status: Former smoker alcohol intake frequency: 0-2 drinks per day Substance Use Type: does not use Exam Initial Vital Signs Initial Vital Signs: Vital Signs Temperature 97.8 F 09/11/21 03:58 Pulse Rate 56 L 09/11/21 03:58 Respiratory Rate 20 09/11/21 03:58 Blood Pressure 144/75 H 09/11/21 03:58 Pulse Oximetry 100 09/11/21 03:58 GENERAL: Alert 55-year-old male appears very uncomfortable and in pain HEENT: Head atraumatic,EOMI, pupils reactive, face symmetric, moist mucous membranes CARDIOVASCULAR: Regular rate and rhythm without murmurs, rubs or gallops. RESPIRATORY: Breath sounds equal bilaterally, no wheezes rales or rhonchi. ABDOMEN: Soft, tenderness and left upper quadrant and chest area normal bowel sounds no right-sided EXTREMITIES: Normal range of motion, no clubbing or edema. Neurovascularly intact NEUROLOGICAL: Alert and oriented x4. SKIN: Warm, dry, no laceration, no petechiae, no rashes or lesions. Course Orders Ordered: Discontinued Medications Hydromorphone HCl (Hydromorphone 1 Mg Inj) 0.5 mg IV NOW ONE Stop: 09/11/21 04:05 Last Admin: 09/11/21 04:12 Dose: 0.5 mg Documented by: KANIKA Hydromorphone HCl (Hydromorphone 0.5 Mg Inj) 0.5 mg IV NOW ONE Stop: 09/11/21 04:20 Last Admin: 09/11/21 04:21 Dose: 0.5 mg Documented by: KANIKA Lorazepam (Lorazepam 2 Mg/Ml Inj) 1 mg IV NOW ONE Stop: 09/11/21 04:27 Last Admin: 09/11/21 04:33 Dose: 1 mg Documented by: KANIKA Vital Signs Vital signs: Vital Signs - 8 hr 09/11/21 03:58 09/11/21 04:10 09/11/21 04:30 Temperature 97.8 F Pulse Rate 56 L 59 L 54 L Respiratory Rate 20 27 H 34 H Blood Pressure 144/75 H 137/75 152/82 H Pulse Oximetry 100 09/11/21 04:46 09/11/21 05:00 09/11/21 05:01 Temperature Pulse Rate 55 L 46 L 47 L Respiratory Rate 31 H 19 Blood Pressure 142/69 H 164/86 H Pulse Oximetry 100 94 92 MDM - Abdominal Pain Lab Data Result diagrams: 09/11/21 04:05 09/11/21 04:05 Labs: Lab Results 09/11/21 09/11/21 09/11/21 Range/Units 04:05 04:05 04:05 WBC 8.1 (4.5-11.0) X10^3/uL RBC 4.43 L (4.5-5.9) X10^6/uL Hgb 13.4 L (13.5-17.5) g/dL Hct 39.5 L (41-53) % MCV 89.3 (80-100) fL MCH 30.2 (26-34) PG MCHC 33.8 (30-36) % RDW 13.3 (11.6-14.8) % Plt Count 333 (150-400) X10^3/uL Neut % (Auto) 45.7 L (50-75) % Lymph % (Auto) 37.3 (25-40) % [place] % (Auto) 9.7 (3-14) % Eos % (Auto) 6.2 H (2-4) % Baso % (Auto) 1.1 (0-2) % Neut # (Auto) 3700 (3936-1921) /uL Lymph # (Auto) 3000 (9259-5473) /uL [place] # (Auto) 800 (0-900) /uL Eos # (Auto) 500 H (0-450) /uL Baso # (Auto) 100 (0-100) /uL Sodium 140 (137-145) mmol/L Potassium 4.0 (3.4-5.1) mmol/L Chloride 107 (98-107) mmol/L Carbon Dioxide 28 (22-32) mmol/L BUN 14 (9-20) mg/dL Creatinine 0.87 (0.66-1.25) mg/dL Estimated GFR > 60.0 (>60) mL/min BUN/Creatinine Ratio 16.1 (6-22) Glucose 94 (70-100) mg/dL Lactate 1.8 (0.7-2.1) mmol/L Calcium 9.7 (8.4-10.2) mg/dL Total Bilirubin 0.6 (0.2-1.3) mg/dL AST 24 (17-59) IU/L ALT 18 (<50) IU/L Alkaline Phosphatase 47 (38-126) U/L Total Creatine Kinase 140 (55-170) U/L CK-MB (CK-2) 0.92 (<2.37) ng/mL CK-MB (CK-2) Rel Index 0.7 L (1.5-5.0) % Troponin I < 0.012 (0.01-0.034) ng/mL NT-Pro-B Natriuret Pep 55 (<125) pg/mL Total Protein 7.6 (6.3-8.2) g/dL Albumin 4.6 (3.5-5.0) g/dL Globulin 3.0 (1.7-4.1) g/dL Albumin/Globulin Ratio 1.5 (1.0-2.8) Lipase 224 (23-300) U/L 09/11/21 Range/Units 06:00 WBC (4.5-11.0) X10^3/uL RBC (4.5-5.9) X10^6/uL Hgb (13.5-17.5) g/dL Hct (41-53) % MCV (80-100) fL MCH (26-34) PG MCHC (30-36) % RDW (11.6-14.8) % Plt Count (150-400) X10^3/uL Neut % (Auto) (50-75) % Lymph % (Auto) (25-40) % [place] % (Auto) (3-14) % Eos % (Auto) (2-4) % Baso % (Auto) (0-2) % Neut # (Auto) (5852-9746) /uL Lymph # (Auto) (4960-5138) /uL [place] # (Auto) (0-900) /uL Eos # (Auto) (0-450) /uL Baso # (Auto) (0-100) /uL Sodium (137-145) mmol/L Potassium (3.4-5.1) mmol/L Chloride (98-107) mmol/L Carbon Dioxide (22-32) mmol/L BUN (9-20) mg/dL Creatinine (0.66-1.25) mg/dL Estimated GFR (>60) mL/min BUN/Creatinine Ratio (6-22) Glucose (70-100) mg/dL Lactate (0.7-2.1) mmol/L Calcium (8.4-10.2) mg/dL Total Bilirubin (0.2-1.3) mg/dL AST (17-59) IU/L ALT (<50) IU/L Alkaline Phosphatase (38-126) U/L Total Creatine Kinase (55-170) U/L CK-MB (CK-2) (<2.37) ng/mL CK-MB (CK-2) Rel Index (1.5-5.0) % Troponin I < 0.012 (0.01-0.034) ng/mL NT-Pro-B Natriuret Pep (<125) pg/mL Total Protein (6.3-8.2) g/dL Albumin (3.5-5.0) g/dL Globulin (1.7-4.1) g/dL Albumin/Globulin Ratio (1.0-2.8) Lipase (23-300) U/L Imaging Data Chest x-ray: Radiologist's Impression: No acute cardio pulmonary abnormality is identified CT scan - chest: Radiologist's Impression: Preliminary report. No pulmonary him a list own, aortic dissection, aneurysm or significant vascular occlusive disease. No evidence of colitis, diverticulitis, bowel obstruction, obstructive uropathy or acute appendicitis. 2 mm nodule along the plane of the minor fissure. If patient is high risk consider 12 month follow-up CT. ECG Data Interpretation: Normal sinus rhythm rate 55 SD interval 148 QRS [address] changes or T-wave inversions MDM Narrative Medical decision making narrative: Patient is writhing in pain overall looks acute distress. He is given no law did which has not seemed to help worried about underlying etiology possible dissection with pain moving from chest abdomen. He is given Ativan as well. He was able to lay still for the CT which fortunately was negative and no abnormality was found. Blood work is overall reassuring. he is noted to be slightly bradycardic with heart rate in the 40s to 50s which is similar to his previous stay. Discharge Plan Departure Patient Disposition: Home Clinical Impression: Abdominal pain, Atypical chest pain Instructions: DI for Abdominal Pain-Adult, DI for Atypical Chest Pain Activity Restrictions/Additional Instructions: *You have been diagnosed with abdominal pain chest pain *What to do: At this time blood work and CT scan do not show any abnormality. I do not know what is causing her pain at this time. I am glad that you are feeling better. *Continue to take medications as directed--> SENT TO [facility] [place] 1 tablet every 6 hours if needed for severe pain *Follow up with your primary care provider in 2-3 days or call [phone] *Return to ER if you should have increasing chest pain, abdominal pain shortness of breath persistent vomiting or any new, worsening or concerning symptoms CONTROLLED SUBSTANCE DISCHARGE (Narcotoic/benzodiazepine/Flexeril/Phenergan) 1. You have been prescribed narcotic medications, it does have acetaminophen/Tylenol/paracetamol in it, DO NOT TAKE MORE THAN 4,00mg in 24 hours of Tylenol. TRAMADOL DOES NOT CONTAIN TYLENOL 2. Please understand that we cannot provide further refills of narcotics, benzodiazepines or controlled substances through the ED and her pain management will need to be through your provider. 3. While on these medications you cannot drive or operate heavy machinery. 4. You cannot sign legal documents or perform any duties such as this. 5. As long as you're taking opiate pain medications he should also be taking a stool softener such as Colace, Dulcolax, MiraLAX or prune juice, to help avoid constipation. Prescriptions: New hydrocodone-acetaminophen 5-325 mg tablet 1 tab PO Q6H PRN (Reason: pain) Qty: 10 0RF Referrals: Aleksandar Medina MD [Primary Care Provider] -
--- NOTE | 2021-09-11 04:04 | DI.RAD.S_ITS ---
PROCEDURE: XR CHEST 1V INDICATIONS: chest pain TECHNIQUE: One view of the chest was acquired. COMPARISON: None. FINDINGS: Surgical changes and devices: None. Lungs and pleura: Lungs are clear. No pleural effusions or pneumothorax. Mediastinum: Mediastinal contours appear normal. Heart size is normal. Bones and chest wall: No suspicious bony lesions. Overlying soft tissues appear unremarkable. IMPRESSION: No acute cardiopulmonary disease process. Dictated by: Carol Liu MD, PhD on 09/11/2021 at 9:09 Approved by: Carol Liu MD, PhD on 09/11/2021 at 9:09
--- NOTE | 2021-09-11 04:04 | DI.CT.S_ITS ---
PROCEDURE: CT ANGIO CHEST ABDOMEN PELVIS INDICATIONS: severe left upper quadrant pain TECHNIQUE: Precontrast 5 mm thick sections acquired from the lung apices to the iliac crests. After the administration of intravenous contrast, 2.5 mm thick sections again acquired from the lung apices to the iliac crests. Maximum intensity projection (MIP) oblique sagittal and coronal reformats were then acquired. For radiation dose reduction, the following was used: automated exposure control. COMPARISON: None. FINDINGS: Image quality: Excellent. AORTA: Intramural hematoma: Absent Maximum hematoma thickness: Not applicable. Focal contrast enhancement: Intramural blood pool (< 2 mm neck or imperceptible communication with aortic lumen): Absent. Ulcer-like projection (broad communication with aortic lumen > 3 mm): Absent. Dissection: Absent Latham classification: Not applicable Maximum aortic diameter: 3.1 cm. [If Devyn A dissection, > 5.0 cm has a poorer prognosis. If Devyn B dissection, > 4.0 cm has a poorer prognosis.] Periaortic hematoma: Absent . CHEST: Lungs and pleura: No acute airspace opacities. 4 millimeter nodule noted in the right middle lobe (series 6, image 144). No pleural effusions or pneumothorax. Central and peripheral airways are patent and normal in caliber. Mediastinum: Heart size is normal. No pericardial effusion. No mediastinal or hilar adenopathy by size criteria. Central pulmonary arteries are normal in size. Esophagus is normal in caliber. No hiatal hernias. Bones and chest wall: No axillary adenopathy by size criteria. Thyroid gland is normal . No suspicious bony lesions. No vertebral body compression fractures. ABDOMEN: Vasculature: Celiac trunk and mesenteric arteries are patent. Renal arteries are also patent. Solid organs: Liver is normal in size and enhancement. Gallbladder is within normal limits. Biliary system is non dilated. Pancreas enhances normally. Spleen is normal in size and enhancement. No adrenal nodules. Both kidneys are normal in size and enhancement, without hydronephrosis. 2 centimeter left renal cyst. Peritoneum and bowel: No free fluid or air. Bowel loops are normal in caliber and wall thickness. Scattered colonic diverticuli without evidence of diverticulitis. The appendix is normal. Nodes and vessels: No retroperitoneal or mesenteric adenopathy by size criteria. Inferior vena cava is normal in morphology. Miscellaneous: No ventral hernias. PELVIS: Genitourinary: Bladder wall thickness is normal. Partially visualized bilateral scrotal ultrasounds. Miscellaneous: No inguinal hernias or adenopathy. No ventral hernias. Bones: No suspicious bony lesions. No vertebral body compression fractures. Spine degenerative disc disease and facet arthropathy. IMPRESSION: 1. No aortic dissection or aortic aneurysm. No vascular occlusion or hemodynamically significant vascular stenosis. 2. No acute disease process. 3. Colonic diverticulosis without evidence of diverticulitis. 4. Partially visualized bilateral scrotal hydroceles. 5. 4 millimeter right middle lobe nodule. Recommend optional follow-up CT scan in 12 months based on criteria outlined below. Fleischner Society criteria for SOLID lung nodule followup. Nodule size (mm)Low-risk patientHigh-risk patient<6 (single or multiple)No routine followup.Optional CT at 12 months. 6-8 (single or multiple)CT at 6-12 months, then optional CT at 18-24 mo.CT at 6-12 months, then CT at 18-24 months. >8 (single)CT at 3 months, PET-CT, or biopsy. Same as for low-risk pts. >8 (multiple)CT at 3-6 months, then optional CT at 18-24 mo.CT at 3-6 months, then CT at 18-24 months. Recommendations do not apply to lung cancer screening, patients with immunosuppression, or patients with known primary cancer. Dictated by: Carol Liu MD, PhD on 09/11/2021 at 8:27 Approved by: Carol Liu MD, PhD on 09/11/2021 at 8:58
[2021-09-11] MEDS: HYDROMORPHONE 1 MG INJ 0.5 MG IV (04:12)
--- NOTE | 2021-09-11 04:19 | PC.NURSE ---
Pt reports no relief after 0.5 dilaudid IV; Verbal order received from Dr Olguin to give remaining 0.5mg dilaudud IV with zofran 4mg iv for c/o nausea.
[2021-09-11 04:21] LABS: Add Manual Diff / Slide Review NO; Basophils Absolute Auto 100 /uL (0-100); Basophils Percent Auto 1.1 % (0-2); Eosinophils Absolute Auto 500 /uL (0-450); Eosinophils Percent Auto 6.2 % (2-4); Hematocrit 39.5 % (41-53); Hemoglobin 13.4 g/dL (13.5-17.5); Lymphocytes Absolute Auto 3000 /uL (1100-4500); Lymphocytes Percent Auto 37.3 % (25-40); Mean Corpuscular HGB Conc 33.8 % (30-36); Mean Corpuscular Hemoglobin 30.2 PG (26-34); Mean Corpuscular Volume 89.3 fL (80-100); Monocytes Absolute Auto 800 /uL (0-900); Monocytes Percent Auto 9.7 % (3-14); Neutrophils Absolute Auto 3700 /uL (1500-7000); Neutrophils Percent Auto 45.7 % (50-75); Platelet Count 333 X10^3/uL (150-400); Red Blood Cell Count 4.43 X10^6/uL (4.5-5.9); Red Cell Distribution Width 13.3 % (11.6-14.8); White Blood Cell Count 8.1 X10^3/uL (4.5-11.0)
[2021-09-11] MEDS: ONDANSETRON 4 MG/2 ML INJ (04:21)
[2021-09-11] MEDS: HYDROMORPHONE 0.5 MG INJ IV (04:21)
[2021-09-11 04:22] LABS: Lactate (Lactic Acid) 1.8 mmol/L (0.7-2.1)
[2021-09-11 04:24] LABS: Alanine Aminotransferase 18 IU/L (<50); Albumin 4.6 g/dL (3.5-5.0); Albumin Globulin Ratio 1.5 (1.0-2.8); Alkaline Phosphatase 47 U/L (38-126); Aspartate Aminotransferase 24 IU/L (17-59); BUN Creatinine Ratio 16.1 (6-22); Bilirubin Total 0.6 mg/dL (0.2-1.3); Blood Urea Nitrogen 14 mg/dL (9-20); Calcium 9.7 mg/dL (8.4-10.2); Carbon Dioxide 28 mmol/L (22-32); Chloride 107 mmol/L (98-107); Creatine Kinase 140 U/L (55-170); Estimated Glomerular Filt Rate > 60.0 mL/min (>60); Glucose 94 mg/dL (70-100); HEMOLYSIS < 15 (0-50); Lipase 224 U/L (23-300); Sodium 140 mmol/L (137-145); Total Protein 7.6 g/dL (6.3-8.2)
[2021-09-11] MEDS: LORazepam 2 MG/ML INJ 1 MG IV (04:33)
[2021-09-11 04:35] LABS: NT-proBNP (BNP-Adult 18+) 55 pg/mL (<125); Troponin I < 0.012 ng/mL (0.01-0.034)
[2021-09-11 04:39] LABS: CKMB % Relative Index 0.7 % (1.5-5.0); Creatine Kinase MB 0.92 ng/mL (<2.37)
--- NOTE | 2021-09-11 04:39 | PC.NURSE ---
Pt still c/o severe pain after 1mg dilaudid, unable to be still to tolerate CT. Dr Olguin aware, 1mg ativan ordered. Pt medicated, now states he can lie down for imaging.
[2021-09-11 06:49] LABS: Troponin I < 0.012 ng/mL (0.01-0.034)
== END 2021-09-11 07:41 | disposition home or self-care (01) ==
PROVIDERS: Emergency Provider Emergency Medicine; PCP Family Medicine
DX: R10.12 Left upper quadrant pain (principal); R07.89 Other chest pain; Z87.891 Personal history of nicotine dependence
CPT/HCPCS: 36415; 71045; 71275; 74174; 80053; 82550; 82553; 83605; 83690; 83880; 84484; 85025; 93005; 96374; 96375; 99284; 99285; J1170; J2060; J2405; Q9967

== ENCOUNTER → 2021-09-12 15:17 | Outpatient (CLI) | payer OTHER, MEDICAID, SELFPAY ==
[2021-09-12 15:57] LABS: COVID19 -Nasal RAPID Negative (Negative)
== END ==
PROVIDERS: PCP Family Medicine; Visit Provider Nurse Practitioner Family
DX: R50.9 Fever, unspecified (principal); R53.83 Other fatigue; R51.9 Headache, unspecified; R11.0 Nausea
CPT/HCPCS: 87635

== ENCOUNTER → 2021-09-13 14:32 | Outpatient (CLI) | payer OTHER, MEDICAID, SELFPAY ==
[2021-09-13 15:06] LABS: Add Manual Diff / Slide Review NO; Basophils Absolute Auto 0 /uL (0-100); Basophils Percent Auto 0.4 % (0-2); Eosinophils Absolute Auto 200 /uL (0-450); Eosinophils Percent Auto 2.1 % (2-4); Hematocrit 37.9 % (41-53); Hemoglobin 12.9 g/dL (13.5-17.5); Lymphocytes Absolute Auto 1600 /uL (1100-4500); Lymphocytes Percent Auto 14.9 % (25-40); Mean Corpuscular HGB Conc 33.9 % (30-36); Mean Corpuscular Hemoglobin 30.5 PG (26-34); Mean Corpuscular Volume 89.8 fL (80-100); Monocytes Absolute Auto 1000 /uL (0-900); Monocytes Percent Auto 9.1 % (3-14); Neutrophils Absolute Auto 8100 /uL (1500-7000); Neutrophils Percent Auto 73.5 % (50-75); Platelet Count 291 X10^3/uL (150-400); Red Blood Cell Count 4.22 X10^6/uL (4.5-5.9); Red Cell Distribution Width 13.4 % (11.6-14.8)
[2021-09-13 15:51] LABS: Alanine Aminotransferase 18 IU/L (<50); Albumin 4.5 g/dL (3.5-5.0); Albumin Globulin Ratio 1.4 (1.0-2.8); Alkaline Phosphatase 66 U/L (38-126); Aspartate Aminotransferase 23 IU/L (17-59); Blood Urea Nitrogen 8 mg/dL (9-20); Calcium 9.1 mg/dL (8.4-10.2); Carbon Dioxide 30 mmol/L (22-32); Chloride 102 mmol/L (98-107); Estimated Glomerular Filt Rate > 60.0 mL/min (>60); Globulin 3.2 g/dL (1.7-4.1); Glucose 102 mg/dL (70-100); HEMOLYSIS < 15 (0-50); Lipase 32 U/L (23-300); Potassium 3.9 mmol/L (3.4-5.1); Sodium 138 mmol/L (137-145); Total Protein 7.7 g/dL (6.3-8.2)
== END ==
PROVIDERS: PCP Family Medicine; Referring Provider Physician Assistant; Visit Provider Physician Assistant
DX: R10.9 Unspecified abdominal pain (principal)
CPT/HCPCS: 36415; 80053; 83690; 85025

== ENCOUNTER 2021-09-13 18:48 | Observation (INO) | payer OTHER, MEDICAID, SELFPAY ==
[2021-09-13 19:06] VITALS: PULSE 76; O2SAT 100
[2021-09-13 19:11] VITALS: BP 130/65; PULSE 73; RESP 20; TEMP 36.8; O2SAT 97; BMI 25.7
[2021-09-13 19:30] VITALS: PULSE 70; RESP 35; O2SAT 100
--- NOTE | 2021-09-13 19:47 | ED_ITS ---
HPI - Chest Pain General Chief Complaint: Chest Pain Stated Complaint: abdominal pains and chest pains Time Seen by Provider: 09/13/21 19:10 Source: patient Mode of arrival: Ambulatory Limitations: no limitations History of Present Illness HPI narrative: Patient is a 55-year-old male. Has been seen here in this emergency department 2 times in the past week and once by his primary provider for was initially described has left-sided chest discomfort and left upper quadrant abdominal pain. During his visits here in the emergency department he has had a CT scan of his abdomen and pelvis which initially had findings that were consistent with an enteritis. The patient has not had any fevers. Has had some nausea but no vomiting. No diarrhea. He does state that his stool has been somewhat more on the constipated and spectrum. No urinary symptoms. He was subsequently discharged home. He returned soon afterwards and had a CTA of his chest abdomen and pelvis. This study did not show any signs enteritis and had no other acute pathology found. Again he was discharged home. Earlier today he followed up with his primary provider. The plan was to repeat labs and he was discharged from his primary visit. Since that time he has now developed right upper quadrant abdominal pain along with a left upper quadrant. Over the past couple days the symptoms do seem to wax and wane however there has always been some baseline discomfort. He has not had much to eat per his report over the past couple days. He states he is afraid to eat because he is afraid that is going to make his pain worse. He has been drinking fluids in this does not seem to change in if his discomfort. Has had kidney stones in the past but this feels somewhat different than kidney stones. He did try ibuprofen and was given a prescription for hydrocodone/acetaminophen which he took 1 earlier today he states that this had minimal impact on his discomfort as well. Related Data Previous Rx's Medication Instructions Recorded hydrocodone 5 mg-acetaminophen 325 1 tab PO Q6H PRN #10 tab 09/11/21 mg tablet Allergies Allergy/AdvReac Type Severity Reaction Status Date / Time No Known Drug Allergies Allergy Verified 09/13/21 19:11 Review of Systems Constitutional Constitutional: Denies fever(s) and Denies headache(s) ENT Ears, Nose, Mouth, and Throat: Denies headache(s) Cardiovascular Cardiovascular: Reports chest pain (Left lower chest), Denies rapid heart rate, Denies lightheadedness and Denies dyspnea Respiratory Respiratory: Denies cough and Denies dyspnea Gastrointestinal Gastrointestinal: Reports abdominal pain, Denies melena, Reports constipation, Denies diarrhea, Reports nausea and Denies vomiting Genitourinary Genitourinary: Denies dysuria and Denies testicular pain Musculoskeletal Comments: Pain does radiate to his left back Integumentary/Breasts Skin/Breast: Reports system reviewed and no additional complaints, except as documented Neurologic Neurologic: Reports system reviewed and no additional complaints, except as documented and Denies headache(s) Hematologic/Lymphatic On Anticoagulants: No Patient History Medical History Abnormal CXR Abnormal prostate by palpation ADHD Asthma Attention deficit disorder Calculus of kidney (01/20/15) Chronic back pain COPD (chronic obstructive pulmonary disease) Hemorrhoid History of kidney stones Kidney stones Migraine Shoulder pain Spermatocele of epididymis Surgical History Anesthesia History of lithotripsy (~2013) Family History Father Age: 81 Heart disease Hypertension Grandmother Heart disease Mother Aneurysm Heart disease Hypertension Grandfather Age: 58 Pancreatic cancer Grandmother Stroke Kidney stones Family/Other SIDS (sudden infant syndrome) Social History marital status: household members: spouse occupational status: other Previous occupational history: retired - [employer] Smoking Status: Current every day smoker alcohol intake: never substance use type: does not use Type(s) of exercise: walking frequency: 5-6 times per week Smoking Status: Current every day smoker tobacco type: vaping alcohol intake frequency: 0-2 drinks per day Substance Use Type: does not use Exam Initial Vital Signs Initial Vital Signs: Vital Signs Pulse Rate 76 09/13/21 19:06 Pulse Oximetry 100 09/13/21 19:06 Const General: cooperative, well developed and well groomed Limitations: mental status not altered HENMT Head: normal to inspection and normocephalic Eyes General: appearance normal, both eyes and all related structures Chest Chest: normal inspection of the chest and No crepitus Resp Effort & Inspection: normal respiratory effort Auscultation: clear to auscultation bilaterally Cardio Rate: regular rate Rhythm: regular rhythm GI Inspection: non-distended Palpation: soft, No firm and tender (Bilateral upper quadrants. Positive Cid sign) Back/Spine/Pelvis Back: normal to inspection and No CVA tenderness Skin Lesions: no lesions Rashes: no rashes Neuro General: patient alert, patient awake, patient oriented x3 and moves all extremities Extrem General: normal to inspection and capillary refill normal Psych Appearance: grossly normal and well kempt Course Orders Ordered: ED Orders 09/13/21 19:40 Complete Blood Count AUTO DIFF Stat Comprehensive Metabolic Panel Stat Lactate (Lactic Acid) Stat Lipase Stat Troponin & CK Cardiac Panel Stat 09/13/21 19:48 US abdomen limited Stat 09/13/21 21:03 Consult to General Surgery Stat CT abdomen pelvis w con Stat 09/13/21 21:20 COVID19 - ADMIT (REHABILITATION CONSULTANT swab/PCR) Stat Hydromorphone HCl (Hydromorphone 0.5 Mg Inj) 1 mg IV Q2H PRN PRN Reason: Pain, Mild (1-3) Last Admin: 09/13/21 23:42 Dose: 1 mg Documented by: BEN Sodium Chloride (Normal Saline 0.9%) 1,000 mls @ 125 mls/hr IV CONT MARIANN Last Admin: 09/13/21 23:14 Dose: 125 mls/hr Documented by: FRANCY Influenza Virus Vaccine (Influenza Vaccine Qiv 0.5 Ml Syringe) 0.5 ml IM .ONCE ONE Stop: 09/14/21 08:01 Ondansetron HCl (Ondansetron 4 Mg/2 Ml Inj) 4 mg IV Q4HR PRN PRN Reason: Nausea And Vomiting Last Admin: 09/13/21 23:18 Dose: 4 mg Documented by: FRANCY Discontinued Medications Al Hydrox/Mg Hydrox/Simethicone 20 ml/ Lidocaine HCl 15 ml 0 ml PO NOW ONE Stop: 09/13/21 19:50 Last Admin: 09/13/21 19:59 Dose: 35 ml Documented by: JANAK Hydromorphone HCl (Hydromorphone 1 Mg Inj) 1 mg IV NOW ONE Stop: 09/13/21 20:28 Last Admin: 09/13/21 20:33 Dose: 1 mg Documented by: ARIN Hydromorphone HCl (Hydromorphone 1 Mg Inj) 1 mg IV NOW ONE Stop: 09/13/21 22:14 Last Admin: 09/13/21 22:27 Dose: 1 mg Documented by: JANAK Sodium Chloride (Normal Saline 0.9%) 1,000 mls @ 125 mls/hr IV CONT MARIANN Last Admin: 09/13/21 23:13 Dose: 125 mls/hr Documented by: Infusion: 09/13/21 23:13 Dose: 125 mls/hr Documented by: Admin: 09/13/21 21:31 Dose: 125 mls/hr Documented by: JANAK Pantoprazole Sodium (Pantoprazole 40 Mg Vial) 40 mg IV NOW ONE Stop: 09/13/21 19:50 Last Admin: 09/13/21 19:57 Dose: 40 mg Documented by: JANAK Vital Signs Vital signs: Vital Signs - 8 hr 09/13/21 19:06 09/13/21 19:11 09/13/21 19:30 Temperature 98.3 F Pulse Rate 76 73 70 Respiratory Rate 20 35 H Blood Pressure 130/65 Pulse Oximetry 100 97 100 09/13/21 20:00 09/13/21 20:30 Temperature Pulse Rate 67 69 Respiratory Rate 23 Blood Pressure Pulse Oximetry 100 98 MDM - Chest Pain Medical Records Data Attestation: I reviewed the patient's medical records. Lab Data Attestation: I reviewed the patient's lab results. Result diagrams: 09/13/21 19:40 09/13/21 19:40 Labs: Lab Results 09/13/21 09/13/21 09/13/21 Range/Units 19:40 19:40 19:40 WBC 12.7 H (4.5-11.0) X10^3/uL RBC 4.44 L (4.5-5.9) X10^6/uL Hgb 13.4 L (13.5-17.5) g/dL Hct 39.4 L (41-53) % MCV 88.9 (80-100) fL MCH 30.3 (26-34) PG MCHC 34.1 (30-36) % RDW 13.3 (11.6-14.8) % Plt Count 312 (150-400) X10^3/uL Neut % (Auto) 73.8 (50-75) % Lymph % (Auto) 15.9 L (25-40) % [place] % (Auto) 7.8 (3-14) % Eos % (Auto) 2.0 (2-4) % Baso % (Auto) 0.5 (0-2) % Neut # (Auto) 9400 H (5854-5579) /uL Lymph # (Auto) 2000 (2235-8130) /uL [place] # (Auto) 1000 H (0-900) /uL Eos # (Auto) 300 (0-450) /uL Baso # (Auto) 100 (0-100) /uL Sodium 139 (137-145) mmol/L Potassium 3.7 (3.4-5.1) mmol/L Chloride 102 (98-107) mmol/L Carbon Dioxide 27 (22-32) mmol/L BUN 7 L (9-20) mg/dL Creatinine 0.84 (0.66-1.25) mg/dL Estimated GFR > 60.0 (>60) mL/min BUN/Creatinine Ratio 8.3 (6-22) Glucose 102 H (70-100) mg/dL Lactate (0.7-2.1) mmol/L Calcium 9.8 (8.4-10.2) mg/dL Total Bilirubin 1.4 H (0.2-1.3) mg/dL AST 24 (17-59) IU/L ALT 18 (<50) IU/L Alkaline Phosphatase 78 (38-126) U/L Total Creatine Kinase 90 (55-170) U/L CK-MB (CK-2) TNP CK-MB (CK-2) Rel Index TNP Troponin I < 0.012 (0.01-0.034) ng/mL Total Protein 8.5 H (6.3-8.2) g/dL Albumin 4.8 (3.5-5.0) g/dL Globulin 3.7 (1.7-4.1) g/dL Albumin/Globulin Ratio 1.3 (1.0-2.8) Lipase 36 (23-300) U/L SARS-CoV-2 (PCR) (Negative) 09/13/21 09/13/21 Range/Units 19:40 21:20 WBC (4.5-11.0) X10^3/uL RBC (4.5-5.9) X10^6/uL Hgb (13.5-17.5) g/dL Hct (41-53) % MCV (80-100) fL MCH (26-34) PG MCHC (30-36) % RDW (11.6-14.8) % Plt Count (150-400) X10^3/uL Neut % (Auto) (50-75) % Lymph % (Auto) (25-40) % [place] % (Auto) (3-14) % Eos % (Auto) (2-4) % Baso % (Auto) (0-2) % Neut # (Auto) (8759-8433) /uL Lymph # (Auto) (2136-1034) /uL [place] # (Auto) (0-900) /uL Eos # (Auto) (0-450) /uL Baso # (Auto) (0-100) /uL Sodium (137-145) mmol/L Potassium (3.4-5.1) mmol/L Chloride (98-107) mmol/L Carbon Dioxide (22-32) mmol/L BUN (9-20) mg/dL Creatinine (0.66-1.25) mg/dL Estimated GFR (>60) mL/min BUN/Creatinine Ratio (6-22) Glucose (70-100) mg/dL Lactate 1.4 (0.7-2.1) mmol/L Calcium (8.4-10.2) mg/dL Total Bilirubin (0.2-1.3) mg/dL AST (17-59) IU/L ALT (<50) IU/L Alkaline Phosphatase (38-126) U/L Total Creatine Kinase (55-170) U/L CK-MB (CK-2) CK-MB (CK-2) Rel Index Troponin I (0.01-0.034) ng/mL Total Protein (6.3-8.2) g/dL Albumin (3.5-5.0) g/dL Globulin (1.7-4.1) g/dL Albumin/Globulin Ratio (1.0-2.8) Lipase (23-300) U/L SARS-CoV-2 (PCR) Negative (Negative) Imaging Data US - abdomen: Radiologist's Impression: [address] [address] Ultrasound Report Signed Patient: Magdaleno Otoole MR#: [id number] : 1965 Acct:[id number] Age/Sex: 55 / M Date of Service: 09/13/21 Loc: ED Accession Number: [id number] ?? Procedure: US abdomen limited Ordering Provider: Fercho Ruffin D.O. PROCEDURE: US ABDOMEN LIMITED ? INDICATIONS:? RUQ PAIN ? TECHNIQUE:? Real-time focused scanning was performed of the abdomen, with image documentation.? ? COMPARISON:? None. ? FINDINGS:? Normal appearance of the pancreas.? Normal sonographic appearance of the liver.? Normally distended gallbladder.? The gallbladder wall measures up to four-5 millimeters.? No pericholecystic fluid.? The manager delivery reports a positive sonographic Cid's sign.? Normal caliber intrahepatic and extrahepatic biliary ducts. ? IMPRESSION: ? Normally distended gallbladder with borderline thickened gallbladder wall.? No gallstones or sludge identified.? The manager delivery does report a positive sonographic Cid's sign.? Overall, findings are equivocal.? Cholecystitis is not strictly excluded.? Dictated by: Aleksandar Baumann M.D. on 09/13/2021 at 20:26 ? ? Approved by: Aleksandar Baumann M.D. on 09/13/2021 at 20:28?? CT scan - abdomen/pelvis: Radiologist's Impression: [place] [address] CT Scan Report Signed Patient: Magdaleno Otoole MR#: [id number] : 1965 Acct:[id number] Age/Sex: 55 / M Date of Service: 09/13/21 Loc: ED Accession Number: [id number] ?? Procedure: CT abdomen pelvis w con Ordering Provider: Fercho Ruffin D.O. PROCEDURE:? CT ABDOMEN PELVIS W CON ? INDICATIONS:? Bilateral upper abdominal pain ? TECHNIQUE:? After the administration of oral and intravenous contrast, axial sections were acquired from the lung bases to the pubic symphysis.? Coronal and sagittal reformats were performed.? For radiation dose reduction, the following was used:? automated exposure control, adjustment of mA and/or kV according to patient size.? ? COMPARISON:[facility], CT, CT ANGIO CHEST ABDOMEN PELVIS, 09/11/2021, 4:26.? [facility], US, US ABDOMEN LIMITED, 09/13/2021, 19:58. ? FINDINGS:? Image quality:? Excellent.? ? Lung bases:? Unremarkable.? ? Heart:? No significant findings. ? ? ABDOMEN: Liver:? Unremarkable.? ? Gallbladder:? Diffuse gallbladder wall thickening.? Mild pericholecystic fluid and inflammation. Biliary ducts:? Unremarkable.? ? Pancreas:? Unremarkable.? ? Spleen:? Unremarkable.? ? Adrenal Glands:? Unremarkable.? ? Kidneys and Ureters:? Small bilateral renal cysts. ? Stomach and Bowel:? Stomach, small bowel loops, and colon are unremarkable. Scattered colonic diverticuli without evidence of diverticulitis.? Appendix is normal.? Peritoneum:? Trace free fluid noted in the lower pelvis.? No free air.? ? Ventral Wall: ? No hernia.? Abdominal Nodes:? No retroperitoneal or mesenteric adenopathy by size criteria.? Vessels:? Aorta and inferior vena cava are normal in size.? ? PELVIS: Pelvic Organs:? Unremarkable.? ? Bladder:? Unremarkable.? ? Pelvic Nodes: No enlarged lymph nodes.? Miscellaneous: No inguinal hernias are seen. ? ? ? Bones:? Spine degenerative disc disease and facet arthropathy. ? IMPRESSION:? Gallbladder wall thickening with pericholecystic fluid and inflammation compatible with acute cholecystitis.? Dictated by: Carol Liu MD, PhD on 09/13/2021 at 22:12 ? ? Approved by: Carol Liu MD, PhD on 09/13/2021 at 22:17? ECG Data Attestation: I personally reviewed and interpreted this ECG as follows: Interpretation: Sinus rhythm Ventricular rate of 60 a Normal axis Normal QRS Normal QTC No ST T wave changes MDM Narrative Medical decision making narrative: Patient is somewhat uncomfortable while lying in bed. Pain medications provided you do seem to improve his symptoms. Initially he was having pain in the left upper quadrant epigastric area. He does have a history of alcohol abuse. Has never had a colonoscopy. Has never had an endoscopy. Has never had issues with reflux disease in the past. We did discuss the possibility of a gastric/duodenal ulcer. He was given Protonix and GI cocktail. This and no impact on his discomfort. He does have leukocytosis today which is new compared to his prior labs. Right upper quadrant ultrasound and some findings of a dilated gallbladder and a mildly thickened wall but no signs of cholelithiasis. I did discuss the case with Dr. Brown who on-call for General surgery. We discussed the possibility of a gallbladder etiology to his symptoms but given his labs and his ultrasound today this is not a definitive source of his pain. Plan will be is to obtain a 3rd CT scan this time with oral contrast per the recommendation of Dr. Brown. This did show findings concerning for cholecystitis. I did discuss this with Dr. Brown. Still not 100% convinced that the gallbladder is the source of his symptoms. We will hold on antibiotics for now. Plan will be is to admit to the hospital. Dr. Brown will come and see the patient in the morning with plans of an upper endoscopy. I did discuss this with the patient. He expressed understanding and agreement. Holding orders were placed for the patient to be admitted. Discharge Plan Departure Patient Disposition: Admitted as Observation Clinical Impression: Abdominal pain Admit Date/Time: 09/13/21 22:38 Admit Provider: Kb Brown
--- NOTE | 2021-09-13 19:48 | DI.US.S_ITS ---
PROCEDURE: US ABDOMEN LIMITED INDICATIONS: RUQ PAIN TECHNIQUE: Real-time focused scanning was performed of the abdomen, with image documentation. COMPARISON: None. FINDINGS: Normal appearance of the pancreas. Normal sonographic appearance of the liver. Normally distended gallbladder. The gallbladder wall measures up to four-5 millimeters. No pericholecystic fluid. The control panel operator crude unit reports a positive sonographic Cid's sign. Normal caliber intrahepatic and extrahepatic biliary ducts. IMPRESSION: Normally distended gallbladder with borderline thickened gallbladder wall. No gallstones or sludge identified. The control panel operator crude unit does report a positive sonographic Cid's sign. Overall, findings are equivocal. Cholecystitis is not strictly excluded. Dictated by: Aleksandar Baumann M.D. on 09/13/2021 at 20:26 Approved by: Aleksandar Baumann M.D. on 09/13/2021 at 20:28
[2021-09-13 19:49] LABS: Add Manual Diff / Slide Review NO; Basophils Absolute Auto 100 /uL (0-100); Basophils Percent Auto 0.5 % (0-2); Eosinophils Absolute Auto 300 /uL (0-450); Hematocrit 39.4 % (41-53); Hemoglobin 13.4 g/dL (13.5-17.5); Lymphocytes Absolute Auto 2000 /uL (1100-4500); Lymphocytes Percent Auto 15.9 % (25-40); Mean Corpuscular HGB Conc 34.1 % (30-36); Mean Corpuscular Hemoglobin 30.3 PG (26-34); Mean Corpuscular Volume 88.9 fL (80-100); Monocytes Absolute Auto 1000 /uL (0-900); Monocytes Percent Auto 7.8 % (3-14); Neutrophils Absolute Auto 9400 /uL (1500-7000); Neutrophils Percent Auto 73.8 % (50-75); Platelet Count 312 X10^3/uL (150-400); Red Blood Cell Count 4.44 X10^6/uL (4.5-5.9); Red Cell Distribution Width 13.3 % (11.6-14.8); White Blood Cell Count 12.7 X10^3/uL (4.5-11.0)
[2021-09-13] MEDS: PANTOPRAZOLE 40 MG VIAL IV (19:57)
[2021-09-13] MEDS: MAG HYDROX/ALUMINUM/SIMETH SUS 20 ML, LIDOCAINE VISCOUS 2% 15 ML PO (19:59)
[2021-09-13 20:00] VITALS: PULSE 67; RESP 23; O2SAT 100
[2021-09-13 20:09] LABS: Alanine Aminotransferase 18 IU/L (<50); Albumin 4.8 g/dL (3.5-5.0); Albumin Globulin Ratio 1.3 (1.0-2.8); Alkaline Phosphatase 78 U/L (38-126); Aspartate Aminotransferase 24 IU/L (17-59); BUN Creatinine Ratio 8.3 (6-22); Bilirubin Total 1.4 mg/dL (0.2-1.3); Blood Urea Nitrogen 7 mg/dL (9-20); Calcium 9.8 mg/dL (8.4-10.2); Carbon Dioxide 27 mmol/L (22-32); Chloride 102 mmol/L (98-107); Estimated Glomerular Filt Rate > 60.0 mL/min (>60); Globulin 3.7 g/dL (1.7-4.1); Glucose 102 mg/dL (70-100); HEMOLYSIS < 15 (0-50); Potassium 3.7 mmol/L (3.4-5.1); Sodium 139 mmol/L (137-145); Total Protein 8.5 g/dL (6.3-8.2)
[2021-09-13 20:10] LABS: Creatine Kinase 90 U/L (55-170); Lipase 36 U/L (23-300)
[2021-09-13 20:21] LABS: Troponin I < 0.012 ng/mL (0.01-0.034)
[2021-09-13 20:30] VITALS: PULSE 69; O2SAT 98
[2021-09-13] MEDS: HYDROMORPHONE 1 MG INJ IV ×2 (20:33→22:27)
--- NOTE | 2021-09-13 20:36 | PC.NURSE ---
He c/o abd. pain,DR Ruffin notified,new orders received and carried out.
--- NOTE | 2021-09-13 21:03 | DI.CT.S_ITS ---
PROCEDURE: CT ABDOMEN PELVIS W CON INDICATIONS: Bilateral upper abdominal pain TECHNIQUE: After the administration of oral and intravenous contrast, axial sections were acquired from the lung bases to the pubic symphysis. Coronal and sagittal reformats were performed. For radiation dose reduction, the following was used: automated exposure control, adjustment of mA and/or kV according to patient size. COMPARISON:[facility], CT, CT ANGIO CHEST ABDOMEN PELVIS, 09/11/2021, 4:26. [facility], US, US ABDOMEN LIMITED, 09/13/2021, 19:58. FINDINGS: Image quality: Excellent. Lung bases: Unremarkable. Heart: No significant findings. ABDOMEN: Liver: Unremarkable. Gallbladder: Diffuse gallbladder wall thickening. Mild pericholecystic fluid and inflammation. Biliary ducts: Unremarkable. Pancreas: Unremarkable. Spleen: Unremarkable. Adrenal Glands: Unremarkable. Kidneys and Ureters: Small bilateral renal cysts. Stomach and Bowel: Stomach, small bowel loops, and colon are unremarkable. Scattered colonic diverticuli without evidence of diverticulitis. Appendix is normal. Peritoneum: Trace free fluid noted in the lower pelvis. No free air. Ventral Wall: No hernia. Abdominal Nodes: No retroperitoneal or mesenteric adenopathy by size criteria. Vessels: Aorta and inferior vena cava are normal in size. PELVIS: Pelvic Organs: Unremarkable. Bladder: Unremarkable. Pelvic Nodes: No enlarged lymph nodes. Miscellaneous: No inguinal hernias are seen. Bones: Spine degenerative disc disease and facet arthropathy. IMPRESSION: Gallbladder wall thickening with pericholecystic fluid and inflammation compatible with acute cholecystitis. Dictated by: Carol Liu MD, PhD on 09/13/2021 at 22:12 Approved by: Carol Liu MD, PhD on 09/13/2021 at 22:17
[2021-09-13] MEDS: SODIUM CHLORIDE 0.9% 1,000 ML 125 ML IV ×3 (21:31→23:14)
[2021-09-13 21:36] LABS: Lactate (Lactic Acid) 1.4 mmol/L (0.7-2.1)
[2021-09-13 22:24] LABS: COVID19 - ADMIT (NP swab/PCR) Negative (Negative)
[2021-09-13 22:55] VITALS: BP 124/77; PULSE 83; RESP 18; TEMP 37.9; O2SAT 96
[2021-09-13 22:57] VITALS: BMI 25.7
[2021-09-13] MEDS: ONDANSETRON 4 MG/2 ML INJ IV (23:18)
[2021-09-13] MEDS: HYDROMORPHONE 0.5 MG INJ 1 MG IV (23:42)
[2021-09-14] VITALS (22 sets, daily range): BP systolic 103–124; BP diastolic 52–79; PULSE 62–92; RESP 10–20; TEMP 36.6–38; O2SAT 92–98
--- NOTE | 2021-09-14 | PATH_ITS ---
[facility] Accession Number: [id number] . 01 Material submitted: . gallbladder - GALLBLADDER . 02 Diagnosis: Gallbladder, Cholecystectomy: Acute necrotizing cholecystitis. No choleliths identified. Negative for dysplasia and malignancy. . [facility] 09/19/2021 1613 Local . 02 Electronically signed: . Rajni Billy MD, Pathologist NPI- [id number] . 01 Gross description: . The specimen is received in formalin, labeled gallbladder and consists of a fragmented gallbladder measuring 9.5 x 4.5 x 3.0 cm in aggregate. The cystic duct measures 0.2 cm in diameter. The serosa is olvera-pink to red-brown with fibrinous adhesions. Opening reveals minimal green viscous bile with no choleliths identified. The mucosa is olvera-green and velvety, and the wall thickness measures 0.6 cm. Building Equipment Inspector sections are submitted, to include the en face cystic duct margin (blue) in cassette A1. (EA:[id number]) /MRV 09/18/202127 Local . 02 Pathologist provided ICD-10: K81.0 . 02 CPT . 663047 Performed at: 01 [facility] [address], [place], [place] [id number] MD Ravi Altamirano MD Phone: [phone] Performed at: 02 [facility] [address] [place], [place] [id number] MD Rajni Billy MD Phone: [phone]
[2021-09-14] MEDS: ONDANSETRON 4 MG/2 ML INJ IV (03:12)
[2021-09-14] MEDS: HYDROMORPHONE 0.5 MG INJ 1 MG IV ×2 (03:12→08:32)
--- NOTE | 2021-09-14 08:24 | CM.DANOTE ---
DCP: Case received, EMR reviewed and met with patient. Introduced self and role. Was able to obtain information regarding patient's baseline activity status prior to hospitalization. DCP assessment completed with information currently available. Patient is a 55 year old male who admitted yesterday evening to the care of the hospitalist team. PCP: Dr. Medina. Payer: confirmed: [employer]/Medicaid. Patient came to the hospital via private vehicle secondary to having abdominal and chest discomfort. According to notes, patient had been to the ER recently in the past two weeks sent from his primary care provider. He was continuing to have more abdominal pain. Patient holds current diagnosis of acute cholecystitis. Plan is for patient to see Dr. Charles, with plans for an upper endoscopy. Patient is currently NPO. Met with patient in his room. He is alert and oriented. He was sitting up in bed, having some abdominal discomfort, as well as his chest. He is independent at his baseline. 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 He resides here in [place] with his spouse, Dana. P: DCP to continue to follow. Patient should be able to go home when he is deemed medically stable. Danni Bejarano RN/Distribution Estimator Discharge Planning/Care Management CM Discharge Assessment Start: 09/14/21 08:22 Freq: Status: Active Protocol: Document 09/14/21 08:22 (Rec: 09/14/21 08:24 [id number]) Discharge Planning Assessment Assigned Lead Generator Danni Bejarano RN/Distribution Estimator Advance Directives? No History Provided By Patient,Medical Record Prior Living Arrangements House Household Members spouse Type of transporation used prior to Drives own vehicle admit Independent with ADL's Yes Is patient alert and oriented? Yes Barriers to Discharge Yes Discharge Plan Home Transportation Arrangement Spouse Referrals Initiated None needed Whiteboard Updated in Patient Room with Yes name and ext. # of Lead Generator Review Status In Process Next Review Type Continued Stay Review
[2021-09-14] MEDS: SODIUM CHLORIDE 0.9% FLUSH 10 ML IV ×3 (08:26→20:30)
[2021-09-14] MEDS: SODIUM CHLORIDE 0.9% 1,000 ML 125 ML IV (08:26)
--- NOTE | 2021-09-14 08:39 | PC.NURSE ---
Addendum entered by Kadi Pham R.N. 09/14/21 15:40: Patient back to room at 1505, alert, oriented rates abd pain 8/10 given 1mg IVP dilaudid. Denies nausea and taking po fluids. Addendum entered by Kadi Pham R.N. 09/14/21 10:33: Patient taken to OR Original Note: Patient alert, oriented rates abdominal pain 6/10 given 1mg IVP dilaudid. No nausea. Patient ambulating in room independently.Remains NPO
--- NOTE | 2021-09-14 10:26 | PM.HP.1 ---
History of Present Illness History of Present Illness Date Patient Seen: 09/14/21 Time Patient Seen: 10:26 Chief complaint: abdominal pains and chest pains Narrative: Magdaleno Otoole is a 55-year-old man who has had severe abdominal pain for about a week now. Actually, he described left upper quadrant pain and left chest pain. He had a CT scan of the abdomen and pelvis initially on 09/09 which showed enteritis. His pain did not improve any returned and a CT angiogram of the chest abdomen and pelvis was performed which did not show a clear etiology. He returned last night with persistent pain now extending to the right upper quadrant. An ultrasound showed a distended, thickened gallbladder without stones. CT scan showed the same. He reports that he has not been eating much since this all started and he has not had much bowel function either. He is unclear of the pain is brought on by eating. He has never had anything like this before. He is a vegetarian now although has not always been that way. Past history of alcohol use. He does not smoke but he vapes currently. Patient History Medical History Abnormal CXR Abnormal prostate by palpation ADHD Asthma Attention deficit disorder Calculus of kidney (01/20/15) Chronic back pain COPD (chronic obstructive pulmonary disease) Hemorrhoid History of kidney stones Kidney stones Migraine Shoulder pain Spermatocele of epididymis Surgical History Anesthesia History of lithotripsy (~2013) Family & Social History Family History Father Age: 81 Heart disease Hypertension Grandmother Heart disease Mother Aneurysm Heart disease Hypertension Grandfather Age: 58 Pancreatic cancer Grandmother Stroke Kidney stones Family/Other SIDS (sudden infant syndrome) Social History: household members spouse Prior Living Arrangements House Safety & Behavioral: Feels Safe in Current Yes Environment Been Physically Hurt or No Threatened By a Person Suicidal Ideation Description None Suicide Plan Description No Plan Tobacco & Substance use: Tobacco type cigarettes Smoking Status Current every day smoker alcohol intake never alcohol intake frequency 0-2 drinks per day Substance Use Type does not use Meds Home Medications and Allergies Home Medications Medication Instructions Recorded Confirmed Type hydrocodone 5 mg-acetaminophen 325 1 tab PO Q6H PRN #10 tab 09/11/21 09/13/21 Rx mg tablet Allergies Allergy/AdvReac Type Severity Reaction Status Date / Time No Known Drug Allergies Allergy Verified 09/13/21 19:11 Exam Vital Signs (past 8 hours): - 09/14/21 03:16 09/14/21 08:21 Temperature 100.4 F H 100.2 F H Pulse Rate 79 82 Respiratory Rate 18 18 Blood Pressure 112/61 116/56 L Pulse Oximetry 95 97 Oxygen Delivery Method Room Air Oxygen Flow Rate 0 Const General: No acute distress Eyes General: appearance normal, both eyes and all related structures Resp Effort & Inspection: normal respiratory effort GI Other: Tender to palpation in the upper abdomen with a positive Cid sign Objective Labs Result Diagrams: 09/13/21 19:40 09/13/21 19:40 Labs: Laboratory Results - last 24 hr 09/13/21 09/13/21 09/13/21 19:40 19:40 19:40 WBC 12.7 H RBC 4.44 L Hgb 13.4 L Hct 39.4 L MCV 88.9 MCH 30.3 MCHC 34.1 RDW 13.3 Plt Count 312 Neut % (Auto) 73.8 Lymph % (Auto) 15.9 L Mccreary % (Auto) 7.8 Eos % (Auto) 2.0 Baso % (Auto) 0.5 Neut # (Auto) 9400 H Lymph # (Auto) 2000 Mccreary # (Auto) 1000 H Eos # (Auto) 300 Baso # (Auto) 100 Sodium 139 Potassium 3.7 Chloride 102 Carbon Dioxide 27 BUN 7 L Creatinine 0.84 Estimated GFR > 60.0 BUN/Creatinine Ratio 8.3 Glucose 102 H Lactate Calcium 9.8 Total Bilirubin 1.4 H AST 24 ALT 18 Alkaline Phosphatase 78 Total Creatine Kinase 90 CK-MB (CK-2) TNP CK-MB (CK-2) Rel Index TNP Troponin I < 0.012 Total Protein 8.5 H Albumin 4.8 Globulin 3.7 Albumin/Globulin Ratio 1.3 Lipase 36 SARS-CoV-2 (PCR) 09/13/21 09/13/21 19:40 21:20 WBC RBC Hgb Hct MCV MCH MCHC RDW Plt Count Neut % (Auto) Lymph % (Auto) Mccreary % (Auto) Eos % (Auto) Baso % (Auto) Neut # (Auto) Lymph # (Auto) Mccreary # (Auto) Eos # (Auto) Baso # (Auto) Sodium Potassium Chloride Carbon Dioxide BUN Creatinine Estimated GFR BUN/Creatinine Ratio Glucose Lactate 1.4 Calcium Total Bilirubin AST ALT Alkaline Phosphatase Total Creatine Kinase CK-MB (CK-2) CK-MB (CK-2) Rel Index Troponin I Total Protein Albumin Globulin Albumin/Globulin Ratio Lipase SARS-CoV-2 (PCR) Negative Assessment & Plan Assessment and plan (1) Acute acalculous cholecystitis: Status: Acute Plan I described the clinical significance to him of the findings which was suggestive of cholecystitis. I explained that cholecystitis in the absence of gallstones is unusual but not impossible. Explained that the source of his pain could be from something other than his gallbladder such as ulcer disease but this seems unlikely given the appearance of the inflammation around the gallbladder on CT. We reviewed the risks and benefits of surgery as well as risks and benefits of waiting. We discussed the role of a HIDA scan which I will leave would give us much additional information, particularly if it is normal. He understands the risks and would like to proceed. I will order antibiotics. COVID-19 COVID-19 status: Negative Result date/Date tested (Pos, Neg/Pending): 09/13/21 Time Spent With Patient Critical Care time: I spent a total of [] minutes of critical care time on this patient's care today; this time is exclusive of procedural time. Quality VTE Deep Vein Thrombosis/Pulmonary Embolism Present on Admission: No
[2021-09-14] MEDS: LACTATED RINGERS 1,000 ML 42 ML IV ×2 (10:30→13:02)
[2021-09-14] MEDS: PIPERACILLIN/TAZO 4.5 GM in SODIUM CHLORIDE 0.9% 100 ML 200 ML IV (11:41)
--- NOTE | 2021-09-14 11:48 | SUR.OPER ---
Supine on padded OR bed, head on pillow, safety belt at thigh, bilateral arms padded with gel pads and tucked at sides. Legs uncrossed. Padded footboard in place. Gel pad placed under bilateral heels. Tape over blanket to secure lower legs.
[2021-09-14] MEDS: BUPIVACAINE 0.5% (PF) VIAL 30 ML INJ (12:03)
[2021-09-14] MEDS: LIDOCAINE 1% W/EPI 20 ML INJ (12:04)
[2021-09-14] MEDS: IOPAMIDOL 15 ML VIAL INJ (12:46)
--- NOTE | 2021-09-14 13:12 | DI.RAD.S_ITS ---
PROCEDURE: XR CHOLANGIOGRAM OPERATIVE INDICATIONS: LAP-REA COMPARISON: None. FINDINGS: Biliary ducts: The surgeon injected contrast into the biliary ducts after cannulation of the cystic duct stump. Visualized intra- and extrahepatic bile ducts are normal in caliber, without strictures. No intraluminal filling defects to suggest retained ductal stones or sludge. No evidence for iatrogenic ductal injury. Duodenum: Contrast flows promptly through the sphincter of Oddi into the duodenum, which appears normal in caliber. IMPRESSION: Postoperative changes of laparoscopic cholecystectomy with no stone identified in the common bile duct. Dictated by: Win Rose M.D. on 09/14/2021 at 12:36 Approved by: Win Rose M.D. on 09/14/2021 at 12:36
--- NOTE | 2021-09-14 14:09 | PM.OP.1 ---
Operative Date/Time/Diagnoses Date of procedure: 09/14/21 Time of procedure: 14:09 Pre-op diagnosis: Acute cholecystitis Post-op diagnosis: same Procedure & Clinicians Procedure: Laparoscopic cholecystectomy with intraoperative cholangiogram Same procedure as scheduled: Yes Indications: Acute cholecystitis Surgeon: Kb Brown Click Yes if Unassisted: Yes Anesthesia Type: General Operative Notes Estimated Blood Loss (mL): 75 Procedure in detail: The patient was given preoperative antibiotic. The patient was brought to the operating room, placed on the table in the supine position. General endotracheal anesthesia was induced. The abdomen was prepped and draped. A time-out was performed. We made a 1 cm infraumbilical incision. We dissected down to the base of the umbilical stalk using cautery. We grasped the umbilical stalk with a Sam clamp to elevate the abdominal wall. We scored the fascia in the midline with cautery 1 cm. We pierced the peritoneum with a Peon clamp. The Marcella port was placed and the abdomen was insufflated to 15 mmHg. A 10 mm 30 degree laparoscopic was inserted. There was no evidence of any injury from the entry. Next, we placed 5 mm ports in the subxiphoid position and right upper quadrant at the midclavicular line and anterior axillary line. Patient was then positioned in reverse Trendelenburg and the table was tilted to the left. The gallbladder was grasped at the dome and retracted cephalad. The omentum was adherent to the liver edge obscuring the gallbladder. We bluntly dissected the omentum off the liver edge and gallbladder wall. The gallbladder was severely inflamed with patchy areas of necrosis. The gallbladder was tense and distended and we decompressed the gallbladder with a needle. We withdrew about 30 mL of dark bile. We carefully dissected the infundibulum and the triangle of Calot using hook cautery and blunt dissection. The gallbladder was very immobile due to inflammation. A cholangiogram was performed using the 6 Vietnamese ureteral catheter. There was good flow of contrast into the duodenum and liver with no obvious filling defects. The cystic duct common duct junction was well visualized. We then placed hemoclips on the cystic duct and artery and divided the cystic duct and artery sharply between the clips. The gallbladder was then dissected off the liver and placed in a specimen retrieval bag. We irrigated the right upper quadrant and all the aspirate returned clear. We placed a 19 round Jarrod drain through the lateral port under direct vision and placed the distal and in the gallbladder fossa. The drain was connected to a bulb and secured to the skin with a stitch. We then removed the 5 mm ports under direct vision we removed the Marcella port. We then injected some local into the fascia and closed the fascia with 2 interrupted 0 Vicryl sutures. The skin incisions were closed with 4 Monocryl and Steri-Strips were applied. Band-Aids were applied over the Steri-Strips. Post-operative Condition: stable Disposition: PACU
[2021-09-14] MEDS: HYDROMORPHONE 2 MG INJ IV ×2 (14:27→14:35)
--- NOTE | 2021-09-14 14:50 | SUR.PHASEI ---
Dr Brown here to see patient and update him on his surgery.
--- NOTE | 2021-09-14 15:17 | SUR.PHASEI ---
Patient transferred to room 209 by Jenaro Flores in bed with oxygen at 2L NC. SBAR report called to Kadi FLORES. Pt awake alert, complaining of pain to RUQ but able to close eyes and rest.
--- NOTE | 2021-09-14 15:24 | SUR.PHASEI ---
All pain levels documented under left chest are for pain to RUQ of abdomen.
[2021-09-14] MEDS: HYDROMORPHONE 1 MG INJ IV (15:31)
[2021-09-15] MEDS: IBUPROFEN 600 MG TABLET PO ×2 (01:22→09:05)
[2021-09-15 01:25] VITALS: BP 107/61; PULSE 57; RESP 16; TEMP 37.4; O2SAT 95
[2021-09-15 05:00] VITALS: BP 97/53; PULSE 65; RESP 18; TEMP 36.4; O2SAT 96
[2021-09-15 07:20] VITALS: BP 103/62; PULSE 61; RESP 17; TEMP 36.6; O2SAT 95
--- NOTE | 2021-09-15 09:21 | PC.NURSE ---
Assess- Patient is in room ambulating, he states that he has been out in the halls as well. Incisions to lower abdomen wnl and sola drain is putting out minimal strawberry colored blood. Given ibuprofen for discomfrot and helpful.
--- NOTE | 2021-09-15 11:42 | PM.PNPO.1 ---
Subjective Subjective Date Patient Seen: 09/15/21 Time Patient Seen: 11:42 Interval history: Feeling very well today. Tolerated clear liquids no nausea ambulating the hallways requesting to go home Exam Vital Signs (past 8 hours): - 09/15/21 05:00 09/15/21 07:20 Temperature 97.6 F 97.9 F Pulse Rate 65 61 Respiratory Rate 18 17 Blood Pressure 97/53 L 103/62 Pulse Oximetry 96 95 Oxygen Delivery Method Nasal Cannula Oxygen Flow Rate 0 Narrative Exam Narrative: General adult male alert oriented no acute distress Abdomen soft nontender drain right upper quadrant serosanguineous no bile Objective Labs Result Diagrams: 09/13/21 19:40 09/13/21 19:40 [facility] Medical History Abnormal CXR Abnormal prostate by palpation ADHD Asthma Attention deficit disorder Calculus of kidney (01/20/15) Chronic back pain COPD (chronic obstructive pulmonary disease) Hemorrhoid History of kidney stones Kidney stones Migraine Shoulder pain Spermatocele of epididymis Surgical History Anesthesia History of lithotripsy (~2013) Family History Father Age: 81 Heart disease Hypertension Grandmother Heart disease Mother Aneurysm Heart disease Hypertension Grandfather Age: 58 Pancreatic cancer Grandmother Stroke Kidney stones Family/Other SIDS (sudden infant syndrome) Social History marital status: household members: spouse occupational status: other Previous occupational history: retired - [employer] Smoking Status: Current every day smoker alcohol intake: never substance use type: does not use Type(s) of exercise: walking frequency: 5-6 times per week Assessment & Plan Post-op Postoperative Procedures: Procedures Operation Date: 09/14/21 11:00 Actual Procedure Side Surgeon p Laparoscopic Cholecystectomy with Intraoperative Cholangiogram Kb Brown MD Postoperative status narrative: 55-year-old man postoperative day 1 status post laparoscopic cholecystectomy for acute cholecystitis. He is doing well appears to be recovering from the operation appropriately. Advance diet to regular If tolerates diet will removed tube and okay for discharge later today Quality VTE Deep Vein Thrombosis/Pulmonary Embolism Present on Admission: No
== END 2021-09-15 13:44 | disposition home or self-care (01) ==
LOC: ED 22:37 → AC 22:39
PROVIDERS: Admitting Provider Surgery; Emergency Provider Emergency Medicine; PCP Family Medicine; Referring Provider Emergency Medicine; Visit Provider Surgery
PROC: 0FT44ZZ Resection of Gallbladder, Percutaneous Endoscopic Approach (ICD-10-PCS; CPT 47562; principal; 2021-09-14 11:00)
DX: K81.0 Acute cholecystitis (principal); R10.12 Left upper quadrant pain; R07.9 Chest pain, unspecified; J44.9 Chronic obstructive pulmonary disease, unspecified; Z20.822 Contact with and (suspected) exposure to COVID-19; Z72.0 Tobacco use; R10.9 Unspecified abdominal pain
CPT/HCPCS: 47563; 36415; 74177; 74300; 76000; 76705; 80053; 82550; 83605; 83690; 84484; 85025; 87635; 93005; 96361; 96374; 96375; 96376; 99220; 99284; 99285; C9803; G0378; C9113; J1100; J1170; J1885; J2250; J2405; J2543; J2704; J3010; Q9967

== ENCOUNTER → 2022-01-08 10:18 | Outpatient (CLI) | payer OTHER, MEDICAID, SELFPAY ==
[2022-01-08 12:26] LABS: Cholesterol 226 mg/dL (140-199); HDL Cholesterol 53 mg/dL (40-60); LDL Cholesterol Calculated 132 mg/dL (<100); Triglycerides 204 mg/dL (35-150)
== END ==
PROVIDERS: PCP Family Medicine; Referring Provider Family Medicine; Visit Provider Family Medicine
DX: E78.5 Hyperlipidemia, unspecified (principal)
CPT/HCPCS: 36415; 80061

== ENCOUNTER → 2022-03-07 12:08 | Outpatient (CLI) | payer OTHER, MEDICAID, SELFPAY ==
--- NOTE | 2022-03-07 12:10 | DI.CT.S_ITS ---
PROCEDURE: CT CHEST WO CON INDICATIONS: FU Pulmonary nodule TECHNIQUE: Noncontrast 5 mm thick sections acquired from the pulmonary apices to the posterior costophrenic angles. 1 mm lung window, 5 mm thick coronal and sagittal and 7 mm axial MIP reformats were then acquired. For radiation dose reduction, the following was used: automated exposure control, adjustment of mA and/or kV according to patient size. COMPARISON: [facility], CT, CT ANGIO CHEST ABDOMEN PELVIS, 09/11/2021, 4:26. FINDINGS: Image quality: Excellent. Lungs and pleura: Pulmonary nodules are as follows: Nodule 1: Right apex, unchanged 4 mm pulmonary nodule, current image 58/3 and previous image 52/6. Nodule 2: Unchanged 3 mm right apical pulmonary nodule, image 55/3. Nodule 3: Unchanged 4 mm Mago fissural pulmonary nodule, right lung, current image 160/3 and previous image 144/6. Nodule 4: Fissural nodule measuring 3 mm, likely a benign lymph node, right lung, image 185/3. No acute air space opacities. No pleural effusions or pneumothorax. Central and peripheral airways are patent and normal in caliber. Mediastinum: Heart size is normal. No pericardial effusion. No mediastinal adenopathy by size criteria. Thoracic aorta and central pulmonary arteries are normal in size. Esophagus is normal in caliber. No hiatal hernia. Bones and chest wall: No suspicious bony lesions. No vertebral body compression fractures. No axillary or supraclavicular adenopathy by size criteria. Thyroid gland is unremarkable . Abdomen: Visualized upper abdominal solid organs and bowel loops appear normal in the absence of contrast. IMPRESSION: 1. 4 separate 4 mm or less pulmonary nodules in the right lung are all stable times almost 7 months. Please see chart below for further follow-up recommendations. Fleischner Society criteria for SOLID lung nodule followup. Nodule size (mm)Low-risk patientHigh-risk patient<6 (single or multiple)No routine followup.Optional CT at 12 months. 6-8 (single or multiple)CT at 6-12 months, then optional CT at 18-24 mo.CT at 6-12 months, then CT at 18-24 months. >8 (single)CT at 3 months, PET-CT, or biopsy. Same as for low-risk pts. >8 (multiple)CT at 3-6 months, then optional CT at 18-24 mo.CT at 3-6 months, then CT at 18-24 months. Fleischner Society criteria for SUB-SOLID lung nodule followup. Solitary pure ground-glass nodules<6 mm (ground glass or part solid)No followup needed. 6 mm or larger (ground glass)CT at 6-12 months to confirm persistence, then CT every 2 years until 5 years.6 mm or larger (part solid)CT at 3-6 months to confirm persistence, then annual CT until 5 years if unchanged and solid component remains <6 mm. Multiple sub-solid nodules<6 mmCT at 3-6 months, then CT consider at 2 & 4 years for high risk patients. [address] at 3-6 months. Subsequent management based on most suspicious lesions. Recommendations do not apply to lung cancer screening, patients with immunosuppression, or patients with known primary cancer. Dictated by: Shahbaz Hopkins M.D. on 03/07/2022 at 16:34 Approved by: Shahbaz Hopkins M.D. on 03/07/2022 at 16:41
== END ==
PROVIDERS: PCP Family Medicine; Referring Provider Family Medicine; Visit Provider Family Medicine
DX: R91.8 Other nonspecific abnormal finding of lung field (principal)
CPT/HCPCS: 71250

== ENCOUNTER → 2022-04-09 07:08 | Outpatient (CLI) | payer OTHER, MEDICAID, SELFPAY ==
[2022-04-09 12:21] LABS: COVID19 -Nasal RAPID Negative (Negative)
== END ==
PROVIDERS: PCP Family Medicine; Visit Provider Surgery
DX: Z01.812 Encounter for preprocedural laboratory examination (principal); Z20.822 Contact with and (suspected) exposure to COVID-19
CPT/HCPCS: 87635; C9803

== ENCOUNTER 2022-04-10 09:17 | Day surgery (SDC) | payer OTHER, MEDICAID, SELFPAY ==
--- NOTE | 2022-04-10 | PATH_ITS ---
[facility] Accession Number: [id number] . 01 Material submitted: . rectum - RECTAL COLON POLYP . 01 Clinical history: . SCREENING COLONOSCOPY . 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 Hyperplastic polyp, two fragments. MRV 04/12/2022 1421 Local . 01 Electronically signed: . Rajni Billy MD, Pathologist NPI- [id number] . 01 Gross description: . RECTAL COLON POLYP: Received in formalin are 3 fragment(s) of olvera, soft tissue measuring 0.5 x 0.2 x 0.1 cm to 0.2 x 0.1 x 0.1 cm submitted entirely in 1 cassette(s) /CPE 04/11/2022 0549 Local . 01 Pathologist provided ICD-10: D12.8 . 01 CPT . 458858 Specimen Comment: A courtesy copy of this report has been sent to [phone] Performed at: 01 [facility] [address] [place] [address], [place], [place] [id number] MD Ravi Altamirano MD Phone: [phone]
[2022-04-10 09:33] VITALS: BMI 25.1
[2022-04-10 09:40] VITALS: BP 106/69; PULSE 50; RESP 16; TEMP 36.1; O2SAT 99
[2022-04-10] MEDS: LACTATED RINGERS 1,000 ML 42 ML IV (09:51)
--- NOTE | 2022-04-10 10:01 | PM.HP.1 ---
History of Present Illness History of Present Illness Date Patient Seen: 04/10/22 Time Patient Seen: 10:01 Chief complaint: SCREENING COLONOSCOPY Narrative: colon cancer screening. No family history for colon cancer. He may have diverticulitis. This is his first scope. Patient History Medical History Abdominal pain Abnormal CXR Abnormal prostate by palpation Acute acalculous cholecystitis ADHD Asthma Attention deficit disorder Calculus of kidney (01/20/15) Chronic back pain COPD (chronic obstructive pulmonary disease) Diverticulosis large intestine w/o perforation or abscess w/o bleeding Hemorrhoid History of kidney stones Kidney stones Migraine Shoulder pain Spermatocele of epididymis Surgical History Anesthesia History of lithotripsy (~2013) Hx laparoscopic cholecystectomy Family & Social History Family History Father Age: 82 Heart disease Hypertension Grandmother Heart disease Mother Aneurysm Heart disease Hypertension Grandfather Age: 59 Pancreatic cancer Grandmother Stroke Kidney stones Family/Other SIDS (sudden syndrome) Social History: household members spouse Tobacco & Substance use: Tobacco type cigarettes,smokeless tobacco Smoking Status Current every day smoker alcohol intake never alcohol intake frequency 0-2 drinks per day Substance Use Type does not use Meds Home Medications and Allergies Home Medications Medication Instructions Recorded Confirmed Type No Known Home Medications 04/10/22 04/10/22 History Allergies Allergy/AdvReac Type Severity Reaction Status Date / Time No Known Drug Allergies Allergy Verified 04/10/22 09:31 Review of Systems Review of Systems ROS: Yes All systems reviewed with the patient and are negative except as otherwise documented Exam Vital Signs (past 8 hours): - 04/10/22 09:40 Temperature 96.9 F L Pulse Rate 50 L Respiratory Rate 16 Blood Pressure 106/69 Pulse Oximetry 99 Oxygen Delivery Method Room Air Oxygen Delivery Method Room Air Const General: cooperative and comfortable Nutritional Appearance: thin Orientation: alert, awake and oriented x3 HENMT Head: normal to inspection and normocephalic Other: Has brandon Eyes Sclera: sclerae normal Neck Neck: trachea midline Chest Chest: normal inspection of the chest Resp Effort & Inspection: normal respiratory effort and able to speak in complete sentences Auscultation: clear to auscultation bilaterally Cardio Rate: regular rate Rhythm: regular rhythm GI Palpation: soft Skin General: atrophy and dry skin Trauma: no lacerations or abrasions Neuro General: patient alert, patient awake and patient oriented x3 Cognition: normal cognition Extrem General: normal to inspection and full ROM Psych Appearance: grossly normal Affect: normal affect Judgment: judgment good Assessment & Plan Assessment & Plan narrative: Colon cancer screening with moderate sedation COVID-19 COVID-19 status: Negative Time Spent With Patient Time with patient: less than 30 minutes Critical Care time: I spent a total of [] minutes of critical care time on this patient's care today; this time is exclusive of procedural time.
[2022-04-10] MEDS: MIDAZOLAM 5 MG/5 ML VIAL 7 MG IV (10:23)
[2022-04-10] MEDS: fentaNYL 250 MCG/5 ML INJ 200 MCG IV (10:23)
--- NOTE | 2022-04-10 10:34 | P.OP.COLON_ITS ---
Operative Date/Time/Diagnoses Date of procedure: 04/10/22 Time of procedure: 10:34 Pre-op diagnosis: colon cancer screening Post-op diagnosis: same Procedure & Clinicians Study performed: Colonoscopy with cold forceps polypectomy Same procedure as scheduled: Yes Indications: Colon cancer screening Surgeon: Marielena Segovia Procedure Notes SCOAP/Timeout: Done Procedure in detail: Preop diagnosis: Colon cancer screening Postop diagnosis: Same Operative procedure: Colonoscopy with moderate sedation and cold forceps polypectomy Surgeon: Umm Segovia MD Anesthetic: Versed 7 mg, fentanyl 200 mcg Findings: 2 mm sessile polyp in the rectum, severe sigmoid diverticulosis Procedure: Patient placed in a lateral position. Rectal exam performed showing normal tone no masses. Colonoscope inserted into the rectum advanced to ileocecal valve with minimal difficulty. Insufflation extraction the scope and the above findings. Impression: Small rectal polyp 2 mm in size taken with cold forceps. Severe d iverticulosis in the descending colon Plan: Repeat colonoscopy 5 years Sedation minutes: 12 Findings: divertiulosis and polyp(s) (rectal 2mm sessile ) Specimen(s): other (polyp) Complications: none Impression: Small rectal polyp. Post-procedure Recommendations: Colonoscopy in 5 years Follow up: as needed Disposition: PACU
[2022-04-10 10:37] VITALS: BP 107/66; PULSE 66; RESP 17; TEMP 36.4; O2SAT 96
[2022-04-10 10:42] VITALS: BP 108/66; PULSE 59; RESP 12; O2SAT 95
[2022-04-10 10:47] VITALS: BP 99/63; PULSE 53; RESP 17; O2SAT 95
[2022-04-10 10:52] VITALS: BP 99/59; PULSE 52; RESP 15; O2SAT 95
[2022-04-10 10:54] VITALS: BP 98/61; PULSE 56; RESP 15; TEMP 36.3; O2SAT 95
== END 2022-04-10 11:15 | disposition home or self-care (01) ==
PROVIDERS: PCP Family Medicine; Referring Provider Surgery; Visit Provider Surgery
PROC: 0DJD8ZZ Inspection of Lower Intestinal Tract, Via Natural or Artificial Opening Endoscopic (ICD-10-PCS; CPT 45378; principal; 2022-04-10 10:15)
DX: Z12.11 Encounter for screening for malignant neoplasm of colon (principal); K57.30 Diverticulosis of large intestine without perforation or abscess without bleeding; F17.210 Nicotine dependence, cigarettes, uncomplicated; D12.8 Benign neoplasm of rectum
CPT/HCPCS: 45380; 99152; J2250; J3010

== ENCOUNTER → 2023-03-09 12:49 | Outpatient (CLI) | payer OTHER, MEDICAID, SELFPAY ==
--- NOTE | 2023-03-09 12:50 | DI.CT.S_ITS ---
PROCEDURE: CT CHEST WO CON INDICATIONS: yearly surveillance pulmonary nodule TECHNIQUE: Noncontrast 5 mm thick sections acquired from the pulmonary apices to the posterior costophrenic angles. 1 mm lung window, 5 mm thick coronal and sagittal and 7 mm axial MIP reformats were then acquired. For radiation dose reduction, the following was used: automated exposure control, adjustment of mA and/or kV according to patient size. COMPARISON: [facility], CT, CT CHEST WO CON, 03/07/2022, 12:14. FINDINGS: Image quality: Excellent. Lungs and pleura: No acute air space opacities. No pleural effusions or pneumothorax. Central and peripheral airways are patent and normal in caliber. Nodule 1 in 2: Stable 3 and 4 mm right upper lobe apical pulmonary nodules on image 3/62 and 3/65 Nodule 3: Stable 4 mm right middle lobe Mago fissure nodule image 3/173 Nodule 4: Tiny 3 mm fissural nodule right lower lobe Mediastinum: Heart size is normal. No pericardial effusion. No mediastinal adenopathy by size criteria. Thoracic aorta and central pulmonary arteries are normal in size. Esophagus is normal in caliber. No hiatal hernia. Bones and chest wall: No suspicious bony lesions. No vertebral body compression fractures. No axillary or supraclavicular adenopathy by size criteria. Thyroid gland unremarkable . Abdomen: Visualized upper abdominal solid organs and bowel loops appear normal in the absence of contrast. IMPRESSION: Stable small right-sided pulmonary nodules, largest measures of 4 mm. Consider 1 additional annual follow-up to assure stability, and then no additional follow-up will be required. Approved by: Sonido Chirinos M.D. on 03/09/2023 at 15:41
== END ==
PROVIDERS: PCP Family Medicine; Referring Provider Family Medicine; Visit Provider Family Medicine
DX: R91.8 Other nonspecific abnormal finding of lung field (principal)
CPT/HCPCS: 71250

== ENCOUNTER → 2023-04-02 11:48 | Outpatient (CLI) | payer OTHER, MEDICAID, SELFPAY ==
[2023-04-02 12:27] LABS: Add Manual Diff / Slide Review NO; Basophils Absolute Auto 100 /uL (0-100); Basophils Percent Auto 0.8 % (0-2); Eosinophils Absolute Auto 400 /uL (0-450); Eosinophils Percent Auto 6.3 % (2-4); Hematocrit 41.7 % (41-53); Hemoglobin 14.2 g/dL (13.5-17.5); Lymphocytes Absolute Auto 1900 /uL (1100-4500); Lymphocytes Percent Auto 28.1 % (25-40); Mean Corpuscular HGB Conc 33.9 % (30-36); Mean Corpuscular Hemoglobin 30.8 PG (26-34); Mean Corpuscular Volume 90.9 fL (80-100); Monocytes Absolute Auto 400 /uL (0-900); Monocytes Percent Auto 6.6 % (3-14); Neutrophils Absolute Auto 3900 /uL (1500-7000); Neutrophils Percent Auto 58.2 % (50-75); Platelet Count 290 X10^3/uL (150-400); Red Blood Cell Count 4.59 X10^6/uL (4.5-5.9); Red Cell Distribution Width 13.4 % (11.6-14.8); White Blood Cell Count 6.8 X10^3/uL (4.5-11.0)
[2023-04-02 13:03] LABS: Alanine Aminotransferase 26 IU/L (<50); Albumin 4.7 g/dL (3.5-5.0); Albumin Globulin Ratio 1.5 (1.0-2.8); Alkaline Phosphatase 73 U/L (38-126); Aspartate Aminotransferase 29 IU/L (17-59); BUN Creatinine Ratio 15.9 (6-22); Bilirubin Total 0.5 mg/dL (0.2-1.3); Blood Urea Nitrogen 14 mg/dL (9-20); Calcium 9.4 mg/dL (8.4-10.2); Carbon Dioxide 30 mmol/L (22-32); Chloride 101 mmol/L (98-107); Cholesterol 177 mg/dL (140-199); Estimated Glomerular Filt Rate > 60 mL/min (>60); Globulin 3.2 g/dL (1.7-4.1); Glucose 101 mg/dL (70-100); HDL Cholesterol 46 mg/dL (40-60); HEMOLYSIS < 15 (0-50); LDL Cholesterol Calculated 102 mg/dL (<100); Potassium 4.9 mmol/L (3.4-5.1); Sodium 138 mmol/L (137-145); Total Protein 7.9 g/dL (6.3-8.2); Triglycerides 143 mg/dL (35-150)
[2023-04-02 13:31] LABS: Prostate Specific Antigen Scrn 1.16 ng/mL (0.1-4.0); TSH w/ Reflex to FT4 1.61 uIU/mL (0.47-4.68)
== END ==
PROVIDERS: PCP Family Medicine; Referring Provider Physician Assistant; Visit Provider Physician Assistant
DX: Z12.5 Encounter for screening for malignant neoplasm of prostate (principal); E78.2 Mixed hyperlipidemia; J44.9 Chronic obstructive pulmonary disease, unspecified; R79.89 Other specified abnormal findings of blood chemistry; Z11.59 Encounter for screening for other viral diseases
CPT/HCPCS: 36415; 80053; 80061; 84443; 85025; 87522; G0103

== ENCOUNTER 2023-11-15 15:04 | Emergency (ER) | payer OTHER, MEDICAID, SELFPAY ==
[2023-11-15 15:11] VITALS: PULSE 92; RESP 20; TEMP 38.5; O2SAT 98; BMI 24.4
--- NOTE | 2023-11-15 15:33 | ED_ITS ---
HPI - URI/Sore Throat <Giovana Marinelli PA-C - Last Filed: 11/15/23 17:05> General Chief Complaint: Upper Respiratory Symptoms Stated Complaint: sob, coughing, congestion Time Seen by Provider: 11/15/23 15:21 Source: patient Mode of arrival: Ambulatory History of Present Illness HPI Narrative: Patient is a 57-year-old male with history of pulmonary nodule of the right presenting for evaluation of 4 days of cough and congestion with fever today. He reports feeling fatigued, body aches and chills. He notes his symptoms started with sneezing and sore throat which was worse when vaping. He states his symptoms seem to worsen the next 2 days. He describes a raw feeling in his chest and throat. He reports some chest discomfort with coughing, but denies any sensation of pressure. He denies any history of lung problems. He reports that he has been having some difficulty breathing over the last couple of days. He reports wheezing. He states his dyspnea worsens at night while lying down. He states that this seems to be because of the sensation in his chest rather than nasal congestion. He reports that he has had history of pneumonia in the past, and this feels similar. He reports that he lives at home with his . He denies chronic conditions. His medical history indicates COPD in 2015. He reports that he underwent pulmonary function testing and was told that he did not have COPD. Related Data Previous Rx's Medication Instructions Recorded amoxicillin 875 mg-potassium 1 tab PO BID #14 tabs 10/29/23 clavulanate 125 mg tablet albuterol sulfate 90 mcg/actuation 2 puff inhalation Q4-6H PRN 11/15/23 aerosol inhaler (Proventil HFA) shortness of breath or wheezing #8.5 grams inhalational spacing device (Space #1 ea 11/15/23 Chamber) oseltamivir 75 mg capsule (Tamiflu) 75 mg PO BID 5 days #10 caps 11/15/23 Allergies Allergy/AdvReac Type Severity Reaction Status Date / Time No Known Drug Allergies Allergy Verified 10/29/23 10:01 Review of Systems <Giovana Marinelli PA-C - Last Filed: 11/15/23 17:05> Review of Systems Narrative: See HPI Patient History <Giovana Marinelli PA-C - Last Filed: 11/15/23 17:05> Medical History Mixed hyperlipidemia Acute acalculous cholecystitis Abdominal pain Diverticulosis large intestine w/o perforation or abscess w/o bleeding Spermatocele of epididymis History of kidney stones Abnormal prostate by palpation Migraine Kidney stones COPD (chronic obstructive pulmonary disease) Asthma Abnormal CXR ADHD Shoulder pain Chronic back pain Hemorrhoid Calculus of kidney (01/20/15) Attention deficit disorder Surgical History Hx laparoscopic cholecystectomy Anesthesia History of lithotripsy (~2013) Family History Father Age: 83 Heart disease Hypertension Grandmother Heart disease Mother Aneurysm Heart disease Hypertension Grandfather Age: 60 Pancreatic cancer Grandmother Stroke Kidney stones Family/Other SIDS (sudden syndrome) Social History marital status: household members: spouse occupational status: other Previous occupational history: retired - [employer] Smoking Status: Smoker, status unknown alcohol intake: never substance use type: does not use Type(s) of exercise: walking frequency: 5-6 times per week Smoking Status: Smoker, status unknown tobacco type: vaping alcohol intake frequency: 0-2 drinks per day Substance Use Type: does not use Exam <Giovana Marinelli PA-C - Last Filed: 11/15/23 17:05> Initial Vital Signs Initial Vital Signs: Vital Signs Temperature 101.3 F H 11/15/23 15:11 Pulse Rate 92 H 11/15/23 15:11 Respiratory Rate 20 11/15/23 15:11 Pulse Oximetry 98 11/15/23 15:11 Oxygen Delivery Method Room Air 11/15/23 15:11 GENERAL: 57 year old patient appears stated age. Well-developed patient, in no acute distress. HEAD: Atraumatic. Normocephalic. EYES: Pupils equal round and reactive. No scleral icterus. No injection or drainage. ENT: Nose with rhinorrhea. Nares are without bleeding or purulent drainage. Throat with mild erythema, No tonsillar hypertrophy or exudate noted. Airway patent. Right TM unable to visualize secondary to cerumen impaction, left TM is partially visualized with no evidence of erythema. NECK: Trachea midline. Non tender CARDIOVASCULAR: Regular rate and rhythm without murmurs, gallops, or rubs. RESPIRATORY: Breath sounds diminished at bilateral bases. No wheezes heard. Fa int rhonchi present bilaterally. NEURO: AOx3. SKIN: No rash or erythema of visible areas <May Liriano MD - Last Filed: 11/15/23 19:04> Initial Vital Signs Initial Vital Signs: Vital Signs Temperature 101.3 F H 11/15/23 15:11 Pulse Rate 92 H 11/15/23 15:11 Respiratory Rate 20 11/15/23 15:11 Pulse Oximetry 98 11/15/23 15:11 Oxygen Delivery Method Room Air 11/15/23 15:11 Course <Giovana Marinelli PA-C - Last Filed: 11/15/23 17:05> Orders Ordered: ED Orders 11/15/23 15:17 Covid-19 + FLU A/B + RSV - PCR Stat 11/15/23 15:46 Chest [XR chest 2V] Stat Discontinued Medications Acetaminophen (Acetaminophen 325 Mg Tablet) 650 mg PO Q6H PRN PRN Reason: Fever/Mild Pain (1-3) Last Admin: 11/15/23 15:36 Dose: 650 mg Documented By: SB Vital Signs Vital signs: Vital Signs - 8 hr 11/15/23 15:11 11/15/23 15:51 Temperature 101.3 F H Pulse Rate 92 H 87 Respiratory Rate 20 22 Blood Pressure 114/71 Pulse Oximetry 98 95 Oxygen Delivery Method Room Air Room Air <May Liriano MD - Last Filed: 11/15/23 19:04> Orders Ordered: ED Orders 11/15/23 15:17 Covid-19 + FLU A/B + RSV - PCR Stat 11/15/23 15:46 Chest [XR chest 2V] Stat Discontinued Medications Acetaminophen (Acetaminophen 325 Mg Tablet) 650 mg PO Q6H PRN PRN Reason: Fever/Mild Pain (1-3) Last Admin: 11/15/23 15:36 Dose: 650 mg Documented By: SB Vital Signs Vital signs: Vital Signs - 8 hr 11/15/23 15:11 11/15/23 15:51 Temperature 101.3 F H Pulse Rate 92 H 87 Respiratory Rate 20 22 Blood Pressure 114/71 Pulse Oximetry 98 95 Oxygen Delivery Method Room Air Room Air MDM - URI/Sore Throat <Giovana Marinelli PA-C - Last Filed: 11/15/23 17:05> Lab Data Labs: Lab Results 11/15/23 Range/Units 15:17 SARS-CoV-2 (PCR) Negative (Negative) Influenza A (RT-PCR) Flu a positive H (NEGATIVE) Influenza B (RT-PCR) Flu b negative (NEGATIVE) RSV (PCR) Negative (Negative) Imaging Data Chest x-ray: Radiologist's Impression: PROCEDURE: XR CHEST 2V INDICATIONS: cough, congestion TECHNIQUE: 2 views of the chest were acquired. COMPARISON: [facility], , XR CHEST 1V, 09/11/2021, 4:07. FINDINGS: Surgical changes and devices: None. Lungs and pleura: Lungs are clear. No pleural effusions or pneumothorax. Mediastinum: Mediastinal contours are normal. Heart size is normal. Bones and chest wall: No suspicious bony abnormalities. Soft tissues appear unremarkable. IMPRESSION: No acute cardiopulmonary abnormality is seen. No focal infiltrates are seen. If there is clinical concern for a developing pulmonary process, a short-term followup chest series (with PA and lateral views, performed in deep inspiration) is suggested for further evaluation. Dictated by: Pelon Lopez M.D. on 11/15/2023 at 15:18 Approved by: Pelon Lopez M.D. on 11/15/2023 at 15:19 [facility] Narrative Medical decision making narrative: Patient is a 57-year-old male presenting for evaluation of cough, congestion sore throat for the last 4 days. He presented to the emergency department with a fever of 101 and has been given Tylenol. Chest x-ray showed no acute cardiopulmonary abnormality nor focal infiltrates. COVID flu and RSV testing showed positive for influenza A. Discussed with patient that based upon his appropriate oxygenation and vital signs today in the emergency room, although he did present with a fever, he seems safe for discharge. Discussed option of IV fluids with patient, but he states he is able to intake fluids by mouth well, and would prefer to go home and rest. This seems reasonable. Recommend shabbir nued treatment with Tylenol and ibuprofen. I have provided an albuterol inhaler with a spacer for him in case he is having continued difficulty breathing while lying down at night. Discussed with him that if he should experience worsening shortness of breath chest pain severe fatigue or other concerning signs or symptoms or difficulty caring for himself he is to follow up in the ER immediately. We discussed that he should expect his symptoms to improve over the next week. I recommend further follow up this week with primary care. <May Liriano MD - Last Filed: 11/15/23 19:04> Lab Data Labs: Lab Results 11/15/23 Range/Units 15:17 SARS-CoV-2 (PCR) Negative (Negative) Influenza A (RT-PCR) Flu a positive H (NEGATIVE) Influenza B (RT-PCR) Flu b negative (NEGATIVE) RSV (PCR) Negative (Negative) Discharge Plan Departure Patient Disposition: Home Clinical Impression: Flu Activity Restrictions/Additional Instructions: Thank you for coming in today for your care. As we discussed, I will send to prescriptions to the [facility] in [place]: Albuterol as well as Tamiflu. I recommend that you increase your fluid intake, rest and take Tylenol ibuprofen as needed. I expect that you should start feeling better over the next week. Please return to the emergency department for further evaluation if you develop worsening shortness of breath, chest pain, fever uncontrolled with Tylenol and ibuprofen or difficulty caring for herself at home or other concerning signs or symptoms. He received a chest x-ray today which did not show any evidence of a pneumonia. This is not replace your regular screening for pulmonary nodule which you talked about, so please continue discussion with your primary care provider the appropriate screening for this. *You have been diagnosed with Influenza A *What to do: *Please continue to take your regular medications as directed. [ x] New medication prescriptions sent to your pharmacy: [facility] in [place] *Please follow up with your primary care provider in 2-3 days, call for an appointment. Let them know you were seen in the Emergency Department and that we ask that you be seen in follow up. We will electronically transmit a record of today's note if your PCP is in our system *If you do not have a primary care provider please contact the [facility] Resource line at [phone]. They will ask some questions about your medical history and help get you set up with a doctor in the community. *Return to Emergency Department if you should have any new, worsening or concerning symptoms, such as [fever greater than 101 F, shaking chills, worsening pain, persistent vomiting or other bothersome symptoms] Prescriptions: New albuterol sulfate [Proventil HFA] 90 mcg/actuation HFA aerosol inhaler 2 puff inhalation Q4-6H PRN (Reason: shortness of breath or wheezing) Qty: 8.5 0RF (DME) Space Chamber Spacer See Rx Instructions .Route Qty: 1 0RF Rx Instructions: As directed oseltamivir [Tamiflu] 75 mg capsule 75 mg PO BID 5 Days Qty: 10 0RF No Action amoxicillin-pot clavulanate 875-125 mg tablet 1 tab PO BID Qty: 14 0RF Referrals: Aleksandar Medina MD [Primary Care Provider] - Stand Alone Forms: Patient Portal/API ED Sign-out <May Liriano MD - Last Filed: 11/15/23 19:04> Cosign ED Attending Cosignature Attestation: I was immediately available in the department for consultation throughout this patient's visit. May Liriano MD
[2023-11-15] MEDS: ACETAMINOPHEN 325 MG TABLET 650 MG PO (15:36)
--- NOTE | 2023-11-15 15:41 | PC.NURSE ---
Pt reports feeling delirious as well. Provider aware.
--- NOTE | 2023-11-15 15:46 | DI.RAD.S_ITS ---
PROCEDURE: XR CHEST 2V INDICATIONS: cough, congestion TECHNIQUE: 2 views of the chest were acquired. COMPARISON: [facility], CR, XR CHEST 1V, 09/11/2021, 4:07. FINDINGS: Surgical changes and devices: None. Lungs and pleura: Lungs are clear. No pleural effusions or pneumothorax. Mediastinum: Mediastinal contours are normal. Heart size is normal. Bones and chest wall: No suspicious bony abnormalities. Soft tissues appear unremarkable. IMPRESSION: No acute cardiopulmonary abnormality is seen. No focal infiltrates are seen. If there is clinical concern for a developing pulmonary process, a short-term followup chest series (with PA and lateral views, performed in deep inspiration) is suggested for further evaluation. Dictated by: Pelon Lopez M.D. on 11/15/2023 at 15:18 Approved by: Pelon Lopez M.D. on 11/15/2023 at 15:19
[2023-11-15 15:51] VITALS: BP 114/71; PULSE 87; RESP 22; O2SAT 95
[2023-11-15 16:01] LABS: Influenza A - CEPHEID Flu A POSITIVE (NEGATIVE); Influenza B - CEPHEID Flu B NEGATIVE (NEGATIVE); Respiratory Syncytial Virus Negative (Negative)
[2023-11-15 16:07] LABS: COVID-19 CEPHEID 4-PLEX PCR Negative (Negative)
== END 2023-11-15 16:41 | disposition home or self-care (01) ==
PROVIDERS: Emergency Medicine; Emergency Provider Physician Assistant; PCP Family Medicine
DX: J10.1 Influenza due to other identified influenza virus with other respiratory manifestations (principal); F17.210 Nicotine dependence, cigarettes, uncomplicated
CPT/HCPCS: 0241U; 71046; 99283

== ENCOUNTER → 2024-03-30 10:22 | Outpatient (CLI) | payer OTHER, SELFPAY ==
--- NOTE | 2024-03-30 10:23 | DI.CT.S_ITS ---
PROCEDURE: CT CHEST WO CON INDICATIONS: Yearly surveillance pulmonary nodule TECHNIQUE: Noncontrast 5 mm thick sections acquired from the pulmonary apices to the posterior costophrenic angles. 1 mm lung window, 5 mm thick coronal and sagittal and 7 mm axial MIP reformats were then acquired. For radiation dose reduction, the following was used: automated exposure control, adjustment of mA and/or kV according to patient size. COMPARISON: [facility], CT, CT ANGIO CHEST ABDOMEN PELVIS, 09/11/2021, 4:26. [facility], CT, CT CHEST WO CON, 03/07/2022, 12:14. [facility], CT, CT CHEST WO CON, 03/09/2023, 12:56. FINDINGS: Image quality: Diagnostic. Lower Neck: No enlarged lymph nodes. Thyroid: No thyroid nodules which require sonographic follow up, per consensus guidelines. Axillae: No enlarged lymph nodes. Chest Wall: Unremarkable. Bones: Unremarkable. Lungs and Pleura: Several small pulmonary nodules are seen, including a right middle lobe perifissural nodule, as on series 3, image 171, measuring 5 mm. These nodules are not significantly changed compared to 202. No new or enlarging pulmonary nodule is seen. No focal infiltrates are seen. No pneumothorax or pleural effusions are seen. Heart: Heart size is normal. No pericardial effusion. Thoracic Vessels: The aorta and pulmonary arteries demonstrate normal size. Mediastinum and Arlene: No enlarged lymph nodes. Esophagus: No wall thickening. No hiatal hernia. Upper Abdomen: A simple left renal cyst is seen, which is stable over time. Visualized upper abdomen solid organs and bowel loops appear normal. IMPRESSION: Stable small pulmonary nodules are seen, measuring up to 5 mm, which are not significantly changed over time. By published criteria, no specific imaging follow-up is recommended. However, if this patient has a significant smoking history, please consider annual low-dose screening chest CT examinations. Dictated by: Pelon Lopez M.D. on 03/30/2024 at 18:17 Approved by: Pelon Lopez M.D. on 03/30/2024 at 18:21
== END ==
PROVIDERS: PCP Family Medicine; Referring Provider Physician Assistant; Visit Provider Physician Assistant
DX: R91.8 Other nonspecific abnormal finding of lung field (principal); Z12.2 Encounter for screening for malignant neoplasm of respiratory organs; N28.1 Cyst of kidney, acquired
CPT/HCPCS: 71250

== ENCOUNTER → 2024-04-27 11:11 | Outpatient (CLI) | payer OTHER, SELFPAY ==
[2024-04-27 12:20] LABS: Alanine Aminotransferase 20 IU/L (<50); Albumin 4.3 g/dL (3.5-5.0); Albumin Globulin Ratio 1.4 (1.0-2.8); Alkaline Phosphatase 64 U/L (38-126); Aspartate Aminotransferase 24 IU/L (17-59); Bilirubin Total 0.7 mg/dL (0.2-1.3); Blood Urea Nitrogen 12 mg/dL (9-20); Calcium 9.4 mg/dL (8.4-10.2); Carbon Dioxide 31 mmol/L (22-32); Chloride 104 mmol/L (98-107); Cholesterol 197 mg/dL (140-199); Estimated Glomerular Filt Rate > 60 mL/min (>60); Glucose 93 mg/dL (70-100); HDL Cholesterol 56 mg/dL (40-60); HEMOLYSIS < 15 (0-50); LDL Cholesterol Calculated 99 mg/dL (<100); Magnesium 2.1 mg/dL (1.6-2.3); Potassium 5.3 mmol/L (3.4-5.1); Sodium 138 mmol/L (137-145); Total Protein 7.3 g/dL (6.3-8.2); Triglycerides 209 mg/dL (35-150)
[2024-04-27 12:50] LABS: TSH w/ Reflex to FT4 1.58 uIU/mL (0.47-4.68)
[2024-04-27 13:09] LABS: Vitamin B12 376 pg/mL (239-931)
== END ==
PROVIDERS: PCP Family Medicine; Referring Provider Physician Assistant; Visit Provider Physician Assistant
DX: E78.2 Mixed hyperlipidemia (principal); R25.3 Fasciculation; J44.9 Chronic obstructive pulmonary disease, unspecified; N42.9 Disorder of prostate, unspecified
CPT/HCPCS: 36415; 80053; 80061; 82607; 83735; 84443

== ENCOUNTER → 2025-06-07 11:24 | Outpatient (CLI) | payer BC, SELFPAY ==
[2025-06-07 12:19] LABS: Alanine Aminotransferase 38 IU/L (<50); Albumin 4.9 g/dL (3.5-5.0); Albumin Globulin Ratio 1.6 (1.0-2.8); Alkaline Phosphatase 62 U/L (38-126); Blood Urea Nitrogen 13 mg/dL (9-20); Calcium 9.9 mg/dL (8.4-10.2); Carbon Dioxide 26 mmol/L (22-32); Chloride 102 mmol/L (98-107); Cholesterol 235 mg/dL (140-199); Estimated Glomerular Filt Rate > 60 mL/min (>60); Globulin 3.1 g/dL (1.7-4.1); Glucose 100 mg/dL (70-99); HDL Cholesterol 54 mg/dL (40-60); HEMOLYSIS < 15 (0-50); Potassium 4.4 mmol/L (3.4-5.1); Sodium 139 mmol/L (137-145); Total Protein 8.0 g/dL (6.3-8.2); Triglycerides 235 mg/dL (35-150)
[2025-06-07 12:49] LABS: TSH w/ Reflex to FT4 1.58 uIU/mL (0.47-4.68)
== END ==
PROVIDERS: PCP Family Medicine; Referring Provider Physician Assistant; Visit Provider Physician Assistant
DX: E78.2 Mixed hyperlipidemia (principal); F17.200 Nicotine dependence, unspecified, uncomplicated; Z12.5 Encounter for screening for malignant neoplasm of prostate
CPT/HCPCS: 36415; 80053; 80061; 84443; G0103